=== PATIENT | male | born 1935 | race Caucasian/White ===

== ENCOUNTER 2023-07-15 18:24 | Outpatient (REF) | payer BC, SELFPAY ==
[2023-07-15 18:57] LABS: INR 1.35; Prothrombin Time 14.1 sec (9.0-11.6)
== END 2023-07-15 18:25 | disposition home or self-care (01) ==
LOC: LAB 18:24
PROVIDERS: PCP Family Medicine; Visit Provider Family Medicine
DX: Z79.01 Long term (current) use of anticoagulants (principal)
CPT/HCPCS: 36415; 85610

== ENCOUNTER 2024-08-02 20:20 | Emergency (ER) | payer MEDICARE, BC, SELFPAY ==
[2024-08-02] VITALS (30 sets, daily range): BP systolic 84–154; BP diastolic 47–70; PULSE 64–118; RESP 14; TEMP 37.2; O2SAT 82–98; BMI 23.0
--- NOTE | 2024-08-02 20:30 | ECG_ITS ---
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 Measurements Intervals Lawrence Rate: 74 P: -44231 MN: -99067 QRS: -28 QRSD: 138 T: 130 QT: 424 QTc: 452 Interpretive Statements 84518 Atrial fibrillation with aberrant conduction, or ventricular premature complexes 2330 Nonspecific intraventricular conduction block 7202 Moderate left axis deviation 9150 abnormal ECG No previous ECG available for comparison Electronically Signed On 08-03-2024 6:33:57 EDT by LISSETH OSMAN M.D.
[2024-08-02 20:34] LABS: Glucometer 181 mg/dL (74-106)
--- NOTE | 2024-08-02 20:45 | ED.SOB1 ---
HPI - SOB/Dyspnea General Chief Complaint: Shortness of Breath/Dyspnea Stated Complaint: other Time Seen by Provider: 08/02/24 20:37 Source: patient Mode of arrival: ambulance History of Present Illness HPI Narrative: patient presents from correction with complaint of shortness of breath. Denies any pain. Denies chest or abdominal pain. Denies nausea or vomiting. He feels he may have the flu. feels weak Related Data Home Medications ?Medication ?Instructions ?Recorded ?Confirmed acetaminophen 325 mg capsule 650 mg PO Q6H PRN fever or pain 08/02/24 08/02/24 albuterol sulfate 0.63 mg/3 mL 0.63 mg inhalation Q6H PRN 08/02/24 08/02/24 solution for nebulization shortness of breath or wheezing aripiprazole 2 mg tablet 2 mg PO BID 08/02/24 08/02/24 atorvastatin 20 mg tablet 20 mg PO DAILY 08/02/24 08/02/24 cephalexin 500 mg capsule 500 mg PO TID 08/02/24 08/02/24 dapagliflozin propanediol 10 mg 10 mg PO DAILY 08/02/24 08/02/24 tablet donepezil 5 mg tablet 5 mg PO DAILY 08/02/24 08/02/24 finasteride 5 mg tablet 5 mg PO BEDTIME 08/02/24 08/02/24 insulin aspart U-100 100 unit/mL subcut 08/02/24 (3 mL) subcutaneous pen (Novolog FlexPen U-100 Insulin aspart) insulin glargine 100 unit/mL (3 unit subcut 08/02/24 mL) subcutaneous pen (Lantus Solostar U-100 Insulin) ipratropium 0.5 mg-albuterol 3 mg 3 ml inhalation TID 08/02/24 08/02/24 (2.5 mg base)/3 mL nebulization soln lisinopril 2.5 mg tablet 5 mg PO DAILY 08/02/24 08/02/24 ondansetron 4 mg disintegrating 4 mg PO Q8H 08/02/24 08/02/24 tablet pantoprazole 40 mg tablet,delayed 40 mg PO DAILY 08/02/24 08/02/24 release prednisone 20 mg tablet 60 mg PO DAILY 08/02/24 08/02/24 sertraline 50 mg tablet 50 mg PO Q24H 08/02/24 08/02/24 tamsulosin 0.4 mg capsule 0.4 mg PO Q24H 08/02/24 08/02/24 trazodone 50 mg tablet 50 mg PO DAILY 08/02/24 08/02/24 warfarin 7.5 mg tablet 4 mg PO DAILY 08/02/24 08/02/24 Allergies Allergy/AdvReac Type Severity Reaction Status Date / Time No Known Drug Allergies Allergy Verified 08/02/24 20:25 Review of Systems ROS Status of ROS 10 or more systems reviewed and unremarkable except as noted in history and below Exam Constitutional Vital Signs, click to edit/add: Last Vital Signs Temp 99.0 F 08/02/24 20:22 Pulse 118 H 08/02/24 23:40 Resp 35 H 08/02/24 23:40 BP 154/58 H 08/02/24 23:02 Pulse Ox 95 08/02/24 23:40 O2 Del Method Nasal Cannula 08/02/24 20:57 O2 Flow Rate 2 08/02/24 20:57 FiO2 30 08/02/24 22:41 Common normals: no apparent distress, oriented x3 and alert HENMT Common normals: normocephalic and head/scalp atraumatic Eye Common normals: PERRL and EOMs intact bilaterally Respiratory Common normals: normal respiratory effort, no retractions, no use of accessory muscles and clear to auscultation bilaterally Other: diminished breath sounds Cardio Common normals: regular rate, regular rhythm, S1 normal heart sound and S2 normal heart sound GI Common normals: Normal to inspection, nondistended, normoactive bowel sounds present, soft to palpation and non-tender Extremity Common normals: normal to inspection Other: stasis dermatitis Neuro Common normals: oriented x3, CN's II-XII intact bilaterally and moves all extremities Psych Appearance: grossly normal Course Vital Signs Vital signs: Vital Signs Temperature 99.0 F 08/02/24 20:22 Pulse Rate 76 08/02/24 20:22 Respiratory Rate 22 H 08/02/24 20:22 Blood Pressure 84/55 L 08/02/24 20:22 Pulse Oximetry 87 L 08/02/24 20:22 Oxygen Delivery Method Room Air 08/02/24 20:22 Temperature 99.0 F 08/02/24 20:22 Pulse Rate 118 H 08/02/24 23:40 Respiratory Rate 35 H 08/02/24 23:40 Blood Pressure 154/58 H 08/02/24 23:02 Pulse Oximetry 95 08/02/24 23:40 Oxygen Delivery Method Nasal Cannula 08/02/24 20:57 Oxygen Delivery Flow Rate 2 08/02/24 20:57 Fraction of Inspired Oxygen 30 08/02/24 22:41 MDM - SOB/Dyspnea MDM Narrative Medical decision making narrative: patient presents from correction with shortness of breath. 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 Denies any chest pain. chest xray per radiology with evidence of pulmonary edema. does have cardiomegaly. right pleural effusion . Patient re examined and now does have faint crackles on exam. troponin [place] 148 [place] [address]. pulse ox decreased to 86% on 2L. 02 increased to 6L and he now has pulse ox 95-96. bipap ordered. repeat troponin increase to 229. Patient has history of A. fib. His INR is subtherapeutic at 1.3. Heparin ordered. will plan transfer to facility with cardiology Lab Data Labs: Lab Results 08/02/24 08/02/24 08/02/24 Range/Units 20:33 20:35 21:10 WBC 4.0 (4.0-11.0) 10^3/uL RBC 3.02 L (4.70-6.10) 10^6/uL Hgb 9.3 L (14.0-18.0) g/dL Hct 30.3 L (42.0-54.0) % MCV 100.3 H (80.0-94.0) fL MCH 30.8 (25.9-34.0) pg MCHC 30.7 (29.9-35.2) g/dL RDW 15.6 H (11.0-15.0) % Plt Count 129 L (150-450) 10^3/uL MPV 11.5 (9.5-13.5) fL Neut % (Auto) 78.2 H (43.0-75.0) % Lymph % (Auto) 13.2 L (20.5-60.0) % [place] % (Auto) 7.6 (1.7-12.0) % Eos % (Auto) 0.0 L (0.9-7.0) % Baso % (Auto) 0.5 (0.2-2.0) % Neut # (Auto) 3.1 (1.4-6.5) 10^3/uL Lymph # (Auto) 0.5 L (1.2-3.8) 10^3/uL [place] # (Auto) 0.3 (0.3-0.8) 10^3/uL Eos # (Auto) 0.0 (0.0-0.7) 10^3/uL Baso # (Auto) 0.0 (0.0-0.1) 10^3/uL Abs Immat Gran (auto) 0.02 (0.00-0.03) 10^3/uL Imm/Tot Granulo (auto) 0.5 (0.0-0.5) % PT 13.7 H (9.0-11.6) sec INR 1.33 Sodium 140 (136-145) mmol/L Potassium 4.1 (3.5-5.1) mmol/L Chloride 106 (98-107) mmol/L Carbon Dioxide 22.7 (21.0-32.0) mmol/L Anion Gap 15.4 BUN 19.0 H (7.0-18.0) mg/dL Creatinine 1.64 H (0.70-1.30) mg/dL Est GFR ( Amer) 48 L (>=60 mL/min/1.73m^2) Est GFR (Non-Af Amer) 40 L (>=60 mL/min/1.73m^2) BUN/Creatinine Ratio 11.6 Glucose 179 H (74-106) mg/dL Lactate 2.1 H* (0.4-2.0) mmol/L Calcium 8.8 (8.5-10.1) mg/dL Troponin I High Sens 148.8 H* (4.0-76.1) pg/mL NT-Pro-B Natriuret Pep 62938.0 H* (<=1800.0) pg/mL Influenza Type A Ag Negative Influenza Type B Ag Negative SARS-CoV-2 Ag (CV2AG) Negative (NEGATIVE) POC Glucose 181 H (74-106) mg/dL 08/02/24 08/03/24 Range/Units 23:45 00:05 WBC (4.0-11.0) 10^3/uL RBC (4.70-6.10) 10^6/uL Hgb (14.0-18.0) g/dL Hct (42.0-54.0) % MCV (80.0-94.0) fL MCH (25.9-34.0) pg MCHC (29.9-35.2) g/dL RDW (11.0-15.0) % Plt Count (150-450) 10^3/uL MPV (9.5-13.5) fL Neut % (Auto) (43.0-75.0) % Lymph % (Auto) (20.5-60.0) % [place] % (Auto) (1.7-12.0) % Eos % (Auto) (0.9-7.0) % Baso % (Auto) (0.2-2.0) % Neut # (Auto) (1.4-6.5) 10^3/uL Lymph # (Auto) (1.2-3.8) 10^3/uL [place] # (Auto) (0.3-0.8) 10^3/uL Eos # (Auto) (0.0-0.7) 10^3/uL Baso # (Auto) (0.0-0.1) 10^3/uL Abs Immat Gran (auto) (0.00-0.03) 10^3/uL Imm/Tot Granulo (auto) (0.0-0.5) % PT (9.0-11.6) sec INR Sodium (136-145) mmol/L Potassium (3.5-5.1) mmol/L Chloride (98-107) mmol/L Carbon Dioxide (21.0-32.0) mmol/L Anion Gap BUN (7.0-18.0) mg/dL Creatinine (0.70-1.30) mg/dL Est GFR ( Amer) (>=60 mL/min/1.73m^2) Est GFR (Non-Af Amer) (>=60 mL/min/1.73m^2) BUN/Creatinine Ratio Glucose (74-106) mg/dL Lactate 3.0 H* (0.4-2.0) mmol/L Calcium (8.5-10.1) mg/dL Troponin I High Sens 229.8 H* (4.0-76.1) pg/mL NT-Pro-B Natriuret Pep (<=1800.0) pg/mL Influenza Type A Ag Influenza Type B Ag SARS-CoV-2 Ag (CV2AG) (NEGATIVE) POC Glucose (74-106) mg/dL Critical Care Time Critical Care Time Total Critical Care Time: 45 Discharge Plan Discharge Chief Complaint: Shortness of Breath/Dyspnea Clinical Impression: Non-ST elevation [place] (NSTEMI) Patient Disposition: [facility]
[2024-08-02 21:09] LABS: Basophils Percent Auto 0.5 % (0.2-2.0); Hematocrit 30.3 % (42.0-54.0); Hemoglobin 9.3 g/dL (14.0-18.0); Immature Granulocytes Abs Auto 0.02 10^3/uL (0.00-0.03); Immature Granulocytes Pct Auto 0.5 % (0.0-0.5); Lymphocytes Absolute Auto 0.5 10^3/uL (1.2-3.8); Lymphocytes Percent Auto 13.2 % (20.5-60.0); Mean Corpuscular HGB Conc 30.7 g/dL (29.9-35.2); Mean Corpuscular Hemoglobin 30.8 pg (25.9-34.0); Mean Corpuscular Volume 100.3 fL (80.0-94.0); Mean Platelet Volume 11.5 fL (9.5-13.5); Monocytes Absolute Auto 0.3 10^3/uL (0.3-0.8); Monocytes Percent Auto 7.6 % (1.7-12.0); Neutrophils Absolute Auto 3.1 10^3/uL (1.4-6.5); Neutrophils Percent Auto 78.2 % (43.0-75.0); Platelet Count 129 10^3/uL (150-450); Red Blood Count 3.02 10^6/uL (4.70-6.10); Red Cell Distribution Width 15.6 % (11.0-15.0)
[2024-08-02] MEDS: 0.9 % SODIUM CHLORIDE 1,000 ML 999 ML IV (21:12)
[2024-08-02 21:33] LABS: Anion Gap 15.4; BUN Creatinine Ratio 11.6; Calcium 8.8 mg/dL (8.5-10.1); Carbon Dioxide 22.7 mmol/L (21.0-32.0); Chloride 106 mmol/L (98-107); Estimated GFR (African America 48 (>=60 mL/min/1.73m^2); Estimated GFR (Non-African Ame 40 (>=60 mL/min/1.73m^2); Glucose 179 mg/dL (74-106); Potassium 4.1 mmol/L (3.5-5.1); Sodium 140 mmol/L (136-145)
[2024-08-02 21:35] LABS: Lactate/Lactic Acid 2.1 mmol/L (0.4-2.0); Troponin I High Sensitivity 148.8 pg/mL (4.0-76.1)
[2024-08-02] MEDS: FUROSEMIDE 40 MG/4 ML VIAL IVP (22:01)
[2024-08-02 22:05] LABS: INR 1.33; Prothrombin Time 13.7 sec (9.0-11.6)
[2024-08-02 22:13] LABS: Influenza Virus A Antigen Negative; Influenza Virus B Antigen Negative; Internal Control Within Normal Limits; SARS-CoV-2 Ag NEGATIVE (NEGATIVE)
[2024-08-02 22:14] LABS: Internal Control Within Normal Limits
[2024-08-03] VITALS (26 sets, daily range): BP systolic 100–121; BP diastolic 56–83; PULSE 82–112; RESP 14; TEMP 38.5; O2SAT 92–100
[2024-08-03 00:44] LABS: Troponin I High Sensitivity 229.8 pg/mL (4.0-76.1)
[2024-08-03] MEDS: HEPARIN SODIUM (PORCINE) 5,000 UNIT/ML VIAL 4000 UNIT IV (01:45)
[2024-08-03] MEDS: HEPARIN SODIUM,PORCINE/D5W 25,000 UNIT/500 ML IV.SOLN 18 UNIT IV (02:49)
[2024-08-03] MEDS: CEFTRIAXONE 1,000 MG in 0.9 % SODIUM CHLORIDE 50 ML 100 MG IV (03:13)
[2024-08-03] MEDS: KETOROLAC TROMETHAMINE 30 MG/ML VIAL IVP (03:13)
[2024-08-03 04:25] LABS: Partial Thromboplastin Time 41.5 sec (22.3-36.2)
== END 2024-08-03 03:40 | disposition short-term general hospital (02) ==
PROVIDERS: Emergency Provider Internal Medicine; PCP Family Medicine
DX: I21.4 Non-ST elevation (NSTEMI) myocardial infarction (principal); R06.02 Shortness of breath; Z95.1 Presence of aortocoronary bypass graft; I48.91 Unspecified atrial fibrillation
CPT/HCPCS: 36415; 71045; 80048; 81001; 83605; 83880; 84484; 85025; 85610; 85730; 87804; 87811; 93005; 94660; 96365; 96375; 96376; 99285; J0696; J1644; J1885; J1938

== ENCOUNTER 2024-09-01 12:17 | Emergency (ER) | payer MEDICARE, BC, SELFPAY ==
--- OUTSIDE RECORDS SUMMARY | 2023-03-17 07:00 | XMS_ITS ---
Author Organization [facility] Servic es Address [address] [place] [address] Care Team Providers Care Paymaster Of Purses Name Role Phone ([facility] AMY(ID)), PHYSICIAN NOT IDENTIFIED Primary Care Provider Unavailable Vanessa Durbin [phone] REASON FOR VISIT EST CM 1 SOUTH D/C- PHONE CALL Encounters Encounter Location Date Provider Diagnosis [address] [place] [address] 03/17/2023 Vanessa Durbin Plan Of Treatment No Information Progress Notes * JOHNATHAN BARKER RDOB:[birth year] (89 yo M)Acc No.[id number]:03/17/2023 Behavioral Health Patient: JOHNATHAN TOSCANO Provider: Edilson Nichole :1935 A ge:87 Y S ex:Male Date:03/17/2023 [id number] Pcp:PHYSICIAN NOT IDENTIFIED ([facility] AMY(ID)) Subjective: * Chief Complaints: * 1 . EST CM 1 SOUTH D/C- PHONE CALL. * Medical History: Objective: Therapeutic Interventions: Assessment: Plan: * Images: Care Plan Details* * Electronic signature of Juanita Durbin on 09/01/2024 at 12:27 PM EDT Sign off status: Pending * Provider: Edilson Nichole Date: 1 05/18/2022 Generated for Printi ng/Faxing/eTransmitting on: 0 09/01/2024 12:27 PM EDT
[2024-09-01] VITALS (19 sets, daily range): BP systolic 120–132; BP diastolic 50–62; PULSE 64–78; TEMP 36.5; O2SAT 93–99; BMI 25.1
--- OUTSIDE RECORDS SUMMARY | 2024-09-01 12:27 | XMS_ITS | Encounter Summary ---
Author Organization [facility] Address [address] [place] [address] Care Team Providers Care Mission Analyst Name Role Phone Clive Rodríguez DO Primary Care Provider [phone] Encounter Details Date Type Department Care Team (Late st Contact Info) Description 08/29/2024 Telephone [facility] [address] [facility] [place] [place] [phone] Albertina Altman MA Social History Tobacco Use Types Packs/Day Years Used Date Smoking Tobacco: Never Assessed Sex and Gender Information Value Date Recorded Sex Assigned at Not on file Legal Sex Male 6:46 PM EDT Gender Identity Not on file Sexual Orientation Not on file documented as of this encounter Miscellaneous Notes * Telephone Encounter - FABIAN Mix - 09/01/2024 10:41 AM EDT Quote and copy of deliver receipt emailed as requested * Telephone Encounter - Albertina Altman MA - 08/29/2024 4:53 PM EDT Patient's son in law called stating that patient was hospitalized and his hearing aid was lost by hospital. Patient is attempting to get new hearing aid paid for by hospital. Patient does have l/d available on the aid. Patient is requesting purchase paperwork and a quote for new hearing aid and earmold. Advised patient to allow 24 to 48 hours. Email quote to [email or web address] documented in this encounter Plan of Treatment Not on file documented as of this encounter Visit Diagnoses Not on filedocumented in this encounter Care Teams Mission Analyst Relationship Specialty Start Date End Date Clive Rodríguez DO PCP - General 11/09/23 documented as of this encounter
--- OUTSIDE RECORDS SUMMARY | 2024-09-01 12:27 | XMS_ITS | Clinical Summary ---
Author Organization [facility] Address [address] [place] [address] Care Team Providers Care Molded Goods Controls Operator Name Role Phone Clive Rodríguez DO Primary Care Provider [phone] Encounters Date Type Department Care Team Description 08/29/2024 Telephone [facility] [address] [place] [address] Albertina Altman MA 08/16/2024 Telephone [facility] [address] [place] [address] Albertina Altman MA from Last 3 Months Social History Tobacco Use Types Packs/Day Years Used Date Smoking Tobacco: Never Assessed Sex and Gender Information Value Date Recorded Sex Assigned at Not on file Legal Sex Male 6:46 PM EDT Gender Identity Not on file Sexual Orientation Not on file Plan of Treatment Not on file Insurance [facility] MEDICARE Care Teams Molded Goods Controls Operator Relationship Specialty Start Date End Date Clive Rodríguez DO PCP - General 11/09/23
--- OUTSIDE RECORDS SUMMARY | 2024-09-01 12:27 | XMS_ITS ---
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 Past Treatment and Therapy Plans No past plan information found. Treatment Summaries Prostate cancer (HCC)* Treatment Summary and Survivorship Care Plan for Prostate Cancer Provided by: Arlin Hodge APRN.LITIGATION DOCKET MANAGER General Information Patient Name: Vincent Greer Patient : 1935 Patient phone: Health Care Providers Primary Care Provider: Dr. Clive Rodríguez Urologic Surgeon: Dr. Parker Everett Radiation Oncologist: Dr. Shae Vazquez Other Providers: Arlin Hodge APRN.LITIGATION DOCKET MANAGER Treatment Summary Diagnosis Cancer Type: Adenocarcinoma of the Prostate Location: Left lateral base; Left lateral mid; Left lateral apex; Left base; Left mid; Left apex; Right apex; Right lateral apex; Right lateral mid (High- grade prostatic intraepithelial neoplasia (HGPIN)) Diagnosis Date (year): April 27, 2019 Histology Subtype: Prostate Cancer Stage: IIC; Clinical stage T2c, N0, M0 Morovis Score: 4+3 = 7 PSA at Diagnosis: 17.9 Clinical Trial: No Treatment Completed Surgery: Yes Surgery Date(s) (year): April 27, 2020 Surgical procedure/location/findings: Transrectal biopsy of prostate using ultrasound guidance; Left lateral base; Left lateral mid; Left lateral apex; Left base; Left mid; Left apex; Right apex; Right lateral apex; Right lateral mid (High-grade prostatic intraepithelial neoplasia (HGPIN)); Adenocarcinoma of the prostate External beam radiation: Yes Pelvis and Prostate: Yes: End Date (year): December 16, 2019 (October 24, 2019 through November) RADIATION SUMMARY: DATES OF TREATMENT: 10/24/2019 to 12/16/2019 AREA TREATED: Pelvis and Prostate DELIVERED DOSE: Area: Prostate 4,600 cGy in 23 fractions, 3 Arcs, IMRT, 10MV with daily CBCT Area: Prostate Boost 3,200 cGy in 16 fractions, 2 Arcs, IMRT, 10MV with daily CBCT TOTAL: 7,800 cGy in 39 Fractions Systemic Therapy (chemotherapy, hormonal therapy, other): Yes Name of Agents Used: Lupron (or similar LHRH agonist) Presistent symptoms or side effects at completion of treatment: No Follow-up Care Plan Schedule of clinical visits Coordinating Provider When/How often Dr. Shae Vazquez Every 6 months x2 years, then once yearly. Dr. Parker Everett Per Dr. Everett Cancer surveillance or other recommended related tests Coordinating Provider Test How Often Dr. Shae Vazquez PSA (Prostate Specific Antigen) Every 6 months x2 years, then once yearly. Dr. Parker Everett PSA (Prostate Specific Antigen) Per Dr. Everett Please continue to see your primary care provider for all general health care recommended for a (man) (women) your age, including cancer screening tests. Any symptoms should be brought to the attention of your provider: 1. Anything that represents a brand new symptom; 2. Anything that represents a persistent symptom; 3. Anything you are worried about that might be related to the cancer coming back. Possible late- and long-term effects that someone with this type of cancer and treatment may experience: Decreased sex drive, Enlarging breast tissue, Erectile dysfunction, Fatigue, Hair Loss, Hot flashes, Incontinence, Increased body fat, Loss of muscle mass, Metabolic syndrome (increased blood pressure, blood sugar, cholesterol), Mood swings, Osteoporosis, Painful urination, Rectal pain, Shorten ing of the penis, Skin irritation or darkening, Sterility, Tirdness, Trouble voiding or passing uring (urinary retention), and Urinary frequency Cancer survivors may experience issues with the areas listed below. If you have any concerns in these or other areas, please speak with your doctors or nurses to find out how you can get help with them: anxiety or depression , emotional or mental health, fatigue, fertility, financial advice or assistance, insurance, memory or concentration loss, parenting, physicial functioning, school/work, and sexual functioning A number of lifestyle/behaviors can affect your ongoing health, including the risk for the cancer coming back or developing another cancer. Discuss these recommendations with your doctor or nurse: alcohol use, diet, management of medications, management of other illnesses, physical activity, sun screen use, tobacco use/cessation, and weight management (loss/gain) Resources you may be interested in: www.cancer.net Nautical Instrument Mechanic Global Supply Chain Director Art Therapy PSA (Prostate Cancer Support Group) - Contact Nautical Instrument Mechanic for dates and times. Living with Cancer Support Group - Contact Nautical Instrument Mechanic for dates and times. Prepared by: Arlin Hodge APRN.LITIGATION DOCKET MANAGER Delivered on: July 11, 2020 - This Survivorship Care Plan is a cancer treatment summary and follow-up plan is provided to you to keep with your health care records and to share with your primary care provider. - This summary is a brief record of major aspects of your cancer treatment. You can share your copywith any of your doctors or nurses. However, this is not a detailed or comprehensive record of yourcare.
--- OUTSIDE RECORDS SUMMARY | 2024-09-01 12:27 | XMS_ITS | Encounter Summary ---
Author Organization [facility] Address [address] [place] [address] Phone Care Team Providers Care Yard Rigger Name Role Phone Clive Rodríguez DO Primary Care Provider [phone] Clive Rodríguez DO Primary Care Provider [phone] Encounter Details Date Type Department Care Team (Late st Contact Info) Description 10/01/2020 Orders Only [facility] [address] [place] [address] Conversion, Onbase Social History Tobacco Use Types Packs/Day Years Used Date Smoking Tobacco: Never Assessed Sex and Gender Information Value Date Recorded Sex Assigned at Not on file Legal Sex Male 4:08 PM EST Gender Identity Not on file Sexual Orientation Not on file documented as of this encounter Plan of Treatment Upcoming Encounters Date Type Department Care Team (Late st Contact Info) Description 09/02/2024 8:30 AM EDT Office Visit [facility] [address] [address] Epifanio Talbot MD [address] [facility] [address] [place] [address] Scheduled Orders Name Type Priority Associated Diagnoses Orde r Schedule OUTSIDE LAB SCAN Lab Ordered: 10/01/2020 documented as of this encounter Visit Diagnoses Not on filedocumented in this encounter Care Teams Yard Rigger Relationship Specialty Start Date End Date Clive Rodríguez DO PCP - General 06/29/18 02/16/24 Clive Rodríguez DO [address] [place] [address] PCP - General Family Medicine 02/17/24 documented as of this encounter
--- OUTSIDE RECORDS SUMMARY | 2024-09-01 12:27 | XMS_ITS | Encounter Summary ---
Author Organization [facility] Address [address] [place] [address] Phone Care Team Providers Care Printing Assistant Name Role Phone Clive Rodríguez DO Primary Care Provider [phone] Clive Rodríguez DO Primary Care Provider [phone] Encounter Details Date Type Department Care Team (Late st Contact Info) Description 01/18/2024 Scanned Document [facility] [address] [place] [phone] Scanning, Generic Provider Social History Tobacco Use Types Packs/Day Years Used Date Smoking Tobacco: Never Smokeless Tobacco: Never Alcohol Use Standard Drinks/Week Comments Never 0 (1 standard drink = 0.6 oz pur e alcohol) Sex and Gender Information Value Date Recorded Sex Assigned at Not on file Legal Sex Male 4:08 PM EST Gender Identity Not on file Sexual Orientation Not on file documented as of this encounter Plan of Treatment Upcoming Encounters Date Type Department Care Team (Late st Contact Info) Description 09/02/2024 8:30 AM EDT Office Visit [facility] [address] [address] Epifanio Talbot MD [address] [facility] [address] [place] [address] documented as of this encounter Procedures Procedure Name Priority Date/Time Associated Diagnosis Comments OUTSIDE LAB SCAN 01/18/2024 documented in this encounter Results * OUTSIDE LAB SCAN (01/18/2024) Narrative 01/18/2024 Ordered by an unspecified provider. us Generic Provider Scanning OUTSIDE SCAN Final Result documented in this encounter Visit Diagnoses Not on filedocumented in this encounter Additional Health Concerns Assessment Noted Time A fall risk assessment has been complete d for the patient 08/31/2023 8:31 AM EDT documented as of this encounter Care Teams Printing Assistant Relationship Specialty Start Date End Date Clive Rodríguez DO PCP - General 06/29/18 02/16/24 Clive Rodríguez DO [address] [place] [id number] PCP - General Family Medicine 02/17/24 documented as of this encounter
--- OUTSIDE RECORDS SUMMARY | 2024-09-01 12:27 | XMS_ITS | Encounter Summary ---
Author Organization [facility] Address [address] [place] [address] Phone Care Team Providers Care Property Management Specialist Name Role Phone Clive Rodríguez DO Primary Care Provider Clive Rodríguez DO Primary Care Provider [phone] Encounter Details Date Type Department Care Team (Late st Contact Info) Description 12/10/2020 Orders Only [facility] [address] [place] [address] Conversion, Onbase Social History Tobacco Use Types [...] Description 09/02/2024 8:30 AM EDT Office Visit [facility] [address] [address] Epifanio Talbot MD [address]03 [facility] [address] [place] [address] Scheduled Orders Name Type Priority Associated Diagnoses Orde r Schedule OUTSIDE LAB SCAN Lab Ordered: 12/10/2020 documented as of this encounter Visit Diagnoses Not on filedocumented in this encounter Care Teams Property Management Specialist Relationship Specialty Start Date End Date Clive Rodríguez DO PCP - General 06/29/18 02/16/24 Clive Rodríguez DO [address] [place] [address] PCP - General Family Medicine 02/17/24 documented as of this encounter
--- OUTSIDE RECORDS SUMMARY | 2024-09-01 12:27 | XMS_ITS | Encounter Summary ---
Author Organization [facility] Address [address] [place] [address] Phone Care Team Providers Care Mds Rn Name Role Phone Clive Rodríguez DO Primary Care Provider [phone] Clive Rodríguez DO Primary Care Provider [phone] Encounter Details Date Type Department Care Team (Late st Contact Info) Description 12/16/2023 Scanned Document [facility] [address] [place] [id number] Scanning, Generic Provider Social History Tobacco Use [...] Description 09/02/2024 8:30 AM EDT Office Visit [facility] [address] [address] Epifanio Talbot MD [address] [facility] [address], [address] [place] [address] documented as of this encounter Procedures Procedure Name Priority Date/Time Associated Diagnosis Comments OUTSIDE LAB SCAN 12/16/2023 documented in this encounter Results * OUTSIDE LAB SCAN (12/16/2023) Narrative 12/16/2023 Ordered by an unspecified provider. us Generic Provider Scanning OUTSIDE SCAN Final Result documented in this encounter Visit Diagnoses Not on filedocumented in this encounter Additional Health Concerns Assessment Noted Time A fall risk assessment has been complete d for the patient 08/31/2023 8:31 AM EDT documented as of this encounter Care Teams Mds Rn Relationship Specialty Start Date End Date Clive Rodríguez DO PCP - General 06/29/18 02/16/24 Clive Rodríguez DO [address] [place] [address] PCP - General Family Medicine 02/17/24 documented as of this encounter
--- OUTSIDE RECORDS SUMMARY | 2024-09-01 12:27 | XMS_ITS | Encounter Summary ---
Author Organization [facility] Address [address] [place] [address] Phone Care Team Providers Care Chief Recordist Name Role Phone Clive Rodríguez DO Primary Care Provider [phone] Clive Rodríguez DO Primary Care Provider [phone] Encounter Details Date Type Department Care Team (Late st Contact Info) Description 11/19/2023 Scanned Document [facility] [address] [place] [phone] Scanning, Generic Provider Social History Tobacco Use [...] Description 09/02/2024 8:30 AM EDT Office Visit [facility] [address] [address] Epifanio Talbot MD 703 [facility] [address], [address] [place] [address] documented as of this encounter Procedures Procedure Name Priority Date/Time Associated Diagnosis Comments OUTSIDE LAB SCAN 11/19/2023 documented in this encounter Results * OUTSIDE LAB SCAN (11/19/2023) Narrative 11/19/2023 Ordered by an unspecified provider. us Generic Provider Scanning OUTSIDE SCAN Final Result documented in this encounter Visit Diagnoses Not on filedocumented in this encounter Additional Health Concerns Assessment Noted Time A fall risk assessment has been complete d for the patient 08/31/2023 8:31 AM EDT documented as of this encounter Care Teams Chief Recordist Relationship Specialty Start Date End Date Clive Rodríguez DO PCP - General 06/29/18 02/16/24 Clive Rodríguez DO [address] [place] [address] PCP - General Family Medicine 02/17/24 documented as of this encounter
--- OUTSIDE RECORDS SUMMARY | 2024-09-01 12:27 | XMS_ITS | Encounter Summary ---
Author Organization [facility] Address [address] [place] [address] Phone Care Team Providers Care Tow Car Driver Name Role Phone Clive Rodríguez DO Primary Care Provider [phone] Clive Rodríguez DO Primary Care Provider [phone] Encounter Details Date Type Department Care Team (Late st Contact Info) Description 10/30/2020 Orders Only [facility] [address] [place] [address] Conversion, Onbase Social History Tobacco Use Types [...] Description 09/02/2024 8:30 AM EDT Office Visit [facility] [address] [address] Epifanio Talbot MD 703 [facility] 2, [address] [place] [address] Scheduled Orders Name Type Priority Associated Diagnoses Orde r Schedule OUTSIDE LAB SCAN Lab Ordered: 10/30/2020 documented as of this encounter Visit Diagnoses Not on filedocumented in this encounter Care Teams Tow Car Driver Relationship Specialty Start Date End Date Clive Rodríguez DO PCP - General 06/29/18 02/16/24 Clive Rodríguez DO [address] [place] [address] PCP - General Family Medicine 02/17/24 documented as of this encounter
--- OUTSIDE RECORDS SUMMARY | 2024-09-01 12:27 | XMS_ITS | Encounter Summary ---
Author Organization [facility] Address [address] [place] [address] Phone Care Team Providers Care Welder Tech Name Role Phone Clive Rodríguez DO Primary Care Provider [phone] Clive Rodríguez DO Primary Care Provider [phone] Encounter Details Date Type Department Care Team (Late st Contact Info) Description 01/06/2024 Scanned Document [facility] [address] [place] [phone] Scanning, Generic Provider Social History Tobacco Use [...] Description 09/02/2024 8:30 AM EDT Office Visit [facility] [address] [address] Epifanio Talbot MD 703 [facility] [address], [address] [place] [address] documented as of this encounter Procedures Procedure Name Priority Date/Time Associated Diagnosis Comments OUTSIDE LAB SCAN 01/06/2024 documented in this encounter Results * OUTSIDE LAB SCAN (01/06/2024) Narrative 01/06/2024 Ordered by an unspecified provider. us Generic Provider Scanning OUTSIDE SCAN Final Result documented in this encounter Visit Diagnoses Not on filedocumented in this encounter Additional Health Concerns Assessment Noted Time A fall risk assessment has been complete d for the patient 08/31/2023 8:31 AM EDT documented as of this encounter Care Teams Welder Tech Relationship Specialty Start Date End Date Clive Rodríguez DO PCP - General 06/29/18 02/16/24 Clive Rodríguez DO [address] [place] [address] PCP - General Family Medicine 02/17/24 documented as of this encounter
--- OUTSIDE RECORDS SUMMARY | 2024-09-01 12:27 | XMS_ITS | Encounter Summary ---
Author Organization [facility] Address [address] [place] [address] Phone Care Team Providers Care Outbound Telemarketing Representative Name Role Phone Clive Rodríguez DO Primary Care Provider [phone] Clive Rodríguez DO Primary Care Provider [phone] Encounter Details Date Type Department Care Team (Late st Contact Info) Description 08/23/2020 Orders Only [facility] [address] [place] [address] Conversion, Onbase Social History Tobacco Use Types [...] Description 09/02/2024 8:30 AM EDT Office Visit [facility] [address] [address] Epifanio Talbot MD 703 [facility] 2, [address] [place] [address] Scheduled Orders Name Type Priority Associated Diagnoses Orde r Schedule OUTSIDE LAB SCAN Lab Ordered: 08/23/2020 documented as of this encounter Visit Diagnoses Not on filedocumented in this encounter Care Teams Outbound Telemarketing Representative Relationship Specialty Start Date End Date Clive Rodríguez DO PCP - General 06/29/18 02/16/24 Clive Rodríguez DO [address] [place] [address] PCP - General Family Medicine 02/17/24 documented as of this encounter
--- OUTSIDE RECORDS SUMMARY | 2024-09-01 12:27 | XMS_ITS | Clinical Summary ---
Author Organization [facility] Address [address] [place] [address] Care Team Providers Care Vaccine Customer Representative Name Role Phone Clive Rodríguez DO Primary Care Provider [phone] Allergies No known active allergies Medications glimepiride (AMARYL ORAL) Take by mouth. Active aspirin, enteric coated (ASPIRIN, ENTERIC COATED) 81 mg EC tablet Take 81 mg by mouth once daily. Active warfarin sodium (COUMADIN ORAL) Take by mouth. Active ferrous sulfate 325 mg (65 mg iron) tablet Take 325 mg by mouth daily with breakfast. Active sitagliptin phosphate (JANUVIA ORAL) Take by mouth. Active insulin glargine,hum.rec .anlog (LANTUS SUBCUTANEOUS) Inject subcutaneou sly. Active atorvastatin calcium (LIPITOR ORAL) Take by mouth. Active LISINOPRIL ORAL Take by mouth. Active omeprazole (PRILOSEC) 20 mg capsule Take 20 mg by mouth once daily. Active tamsulosin (FLOMAX) 0.4 mg Take 0.4 mg by mouth daily at bedtime. Active Vitamin E, dl, acetate, (VITAMIN E) 200 unit Capsule Take by mouth once daily. 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 Never 10/04/2019 Average Number of Drinks Not on file 020 Frequency of Binge Drinking Not on file 09/20 PHQ-2 Answer Date Recorded PHQ-2 score 0 01/05/2024 Area Deprivation Index Answer Date Pato rded National Score (1-100), lower number is lower ri sk 78 01/05/2024 State Score (1-10), lower number is lower risk 6 01/05/2024 Data from: https://www.neighborhoodatlas.medicine.[facility]/. Last address used for calculation [address] 01/05/2024 Sex and Gender Information Value Date Recorded Sex Assigned at Not on file Legal Sex Male 10:06 AM EST Gender Identity Not on file Sexual Orientation Not on file Last Filed Vital Signs Vital Sign Reading Time Taken Comments Blood Pressure 175/84 01/05/2024 1:10 PM EDT Pulse 67 01/05/2024 1:10 PM EDT Temperature 36.2 C (97.2 F) 01/05/2024 1:10 PM EDT Respiratory Rate 18 01/05/2024 1:10 PM EDT Oxygen Saturation 97% 01/05/2024 1:10 PM EDT Inhaled Oxygen Concentration - - Weight 81.2 kg (179 lb 0.2 oz) 01/05/2024 1:10 P M EDT Height 179.1 cm (5' 10.5 ) 10/04/2019 7:52 AM ED T Body Mass Index 25.32 10/04/2019 7:52 AM EDT Plan of Treatment Health Maintenance Due Date Last Done Comments Anxiety Screening 1953 Depression Screening 1953 Medicare Annual Wellness Visit 05/21/2001 RSV Vaccine (1 - 1-dose 75+ series) 06/15/2011 Shingrix Vaccine (2 of 3) 12/16/2012 10/21/2012 Pneumococcal Vaccine: 50+ (2 of 2 - PPSV23) 01/08/2019 01/08/2018 Covid-19 Vaccine (1 - 2023-2 5 season) 2023 Advance Directive Discussion 03/23/2024 Influenza Vaccine (Season Ended) 2024 12/21/2020, 01/11/2020, 01/03/2019, Additional history exists Diabetes Screening 07/06/2026 07/07/2023, 0 07/07/2023, 07/03/2023, Additional history exists DTaP,Tdap,Td Vaccine (2 - Td or Tdap) 01/02/2029 01/02/2019, 01/02/2019 Procedures Procedure Name Priority Date/Time Associated Diagnosis Comments COMPREHENSIVE METABOLIC PANEL Routine 07/04/2020 8:55 AM EDT from Last 3 Months or Most Recently Relevant to Health Maintenance Results * (ABNORMAL) COMP METABOLIC PANEL (07/04/2020 8:55 AM EDT) Pathologist [facility] Protein, Total 6.6 6.3 - 8.0 g/dL 07/05/2020 11:28 AM EDT [facility] Albumin 3.9 3.9 - 4.9 g/dL 07/05/2020 11:28 AM EDT [facility] Calcium 9.2 8.5 - 10.2 mg/dL 07/05/2020 11:28 AM EDT [facility] Bilirubin, Total 0.3 0.2 - 1.3 mg/dL 07/05/2020 11:28 AM T [facility] Alkaline Phosphatase 121(H) 38 - 113 U/L 07/05/2020 11:28 AM EDT [facility] AST 37 14 - 40 U/L 07/05/2020 11:28 AM EDT [facility] Glucose 172(H) 74 - 99 mg/dL 07/05/2020 11:28 AM [facility] Comment: The [place] [employer] (ADA) provides guidance for cutoff values for fasting glucose and random glucose. The ADA defines fasting as no caloric intake for at least 8 hours. Fasting plasma glucose results between 100 to 125 mg/dL indicate increased risk for diabetes (prediabetes). Fasting plasma glucose results greater than or equal to 126 mg/dL meet the criteria for diagnosis of diabetes. In the absence of unequivocal hyperglycemia, results should be confirmed by repeat testing. In a patient with classic symptoms of hyperglycemia or hyperglycemic crisis, random plasma glucose results greater than or equal to 200 mg/dL meet the criteria for diagnosis of diabetes. Reference: Standards of Medical Care in Diabetes 2016, [place] [employer]. Diabetes Care. 2016.39(Suppl 1). BUN 14 9 - 24 mg/dL 07/05/2020 11:28 AM EDT [facility] Creatinine 1.12 0.73 - 1.22 mg/dL 07/05/2020 11:28 AM EDT [facility] Sodium 141 136 - 144 mmol/L 07/05/2020 11:28 AM EDT [facility] Potassium 4.4 3.7 - 5.1 mmol/L 07/05/2020 11:28 AM EDT [facility] Chloride 107(H) 97 - 105 mmol/L 07/05/2020 11:28 AM EDT [facility] CO2 26 22 - 30 mmol/L 07/05/2020 11:28 AM EDT [facility] Anion Gap 8(L) 9 - 18 mmol/L 07/05/2020 11:28 AM T [facility] ALT 31 10 - 54 U/L 07/05/2020 11:28 AM [facility] eGFR- >60 07/05/2020 11:28 AM T [facility] eGFR-All Other Races >60 . 07/05/2020 11:28 AM T [facility] Comment: eGFR (Estimated GFR) Units of measure: mL/min/1.73 meters squared eGFR is derived from the reexpressed MDRD Study equation using the following parameters: serum creatinine, age, gender and race. The creatinine assay has been calibrated to be traceable to IDMS. An eGFR <60 mL/min/1.73m2 for >3 months is consistent with chronic kidney disease. Refer to KDOQI guidelines for clinical interpretation. In patients with unstable renal function, e.g. those with acute kidney injury, the eGFR may not accurately reflect actual GFR. 07/04/2020 8:55 AM EDT 07/04/2020 8:06 PM EDT us Clive Rodríguez DO LABORATORY Final Result [facility] [address] [place] [address] [facility] [address] [place] [address] from Last 3 Months or Most Recently Relevant to Health Maintenance Insurance MEDICARE BLUE CARD PPO OOS Care Teams Vaccine Customer Representative Relationship Specialty Start Date End Date Clive Rodríguez DO [address] [place] [address] PCP - General Family Medicine 10/04/19
--- OUTSIDE RECORDS SUMMARY | 2024-09-01 12:27 | XMS_ITS | Encounter Summary ---
Author Organization [facility] Address [address] [place] [address] Phone Care Team Providers Care Grinding Room Inspector Name Role Phone Clive Rodríguez DO Primary Care Provider [phone] Clive Rodríguez DO Primary Care Provider [phone] Encounter Details Date Type Department Care Team (Late st Contact Info) Description 08/21/2022 Orders Only [facility] [address] [place] [address] Conversion, Onbase Social History Tobacco Use Types [...] Description 09/02/2024 8:30 AM EDT Office Visit [facility] [address] [address] Epifanio Talbot MD 703 [facility] 2, [address] [place] [address] Scheduled Orders Name Type Priority Associated Diagnoses Orde r Schedule OUTSIDE LAB SCAN Lab Ordered: 08/21/2022 OUTSIDE LAB SCAN Lab Ordered: 08/21/2022 documented as of this encounter Visit Diagnoses Not on filedocumented in this encounter Care Teams Grinding Room Inspector Relationship Specialty Start Date End Date Clive Rodríguez DO PCP - General 06/29/18 02/16/24 Clive Rodríguez DO [facility] [place] [address] PCP - General Family Medicine 02/17/24 documented as of this encounter
--- OUTSIDE RECORDS SUMMARY | 2024-09-01 12:27 | XMS_ITS | Encounter Summary ---
Author Organization [facility] Address [address] [place] [address] Phone Care Team Providers Care Route Salesman And Driver Name Role Phone Clive Rodríguez Miguel BROOKS Primary Care Provider [phone] Encounter Details Date Type Department Care Team (Late st Contact Info) Description 03/29/2024 Scanned Document [facility] [address] [place] [phone] Scanning, Generic Provider Social History Tobacco Use [...] Description 09/02/2024 8:30 AM EDT Office Visit [facility] [address] [address] Epifanio Talbot MD 703 [facility] 2, [address] [place] [address] documented as of this encounter Procedures Procedure Name Priority Date/Time Associated Diagnosis Comments OUTSIDE LAB SCAN 03/29/2024 documented in this encounter Results * OUTSIDE LAB SCAN (03/29/2024) Narrative 03/29/2024 Ordered by an unspecified provider. us Generic Provider Scanning OUTSIDE SCAN Final Result documented in this encounter Visit Diagnoses Not on filedocumented in this encounter Additional Health Concerns Assessment Noted Time A fall risk assessment has been complete d for the patient 08/31/2023 8:31 AM EDT documented as of this encounter Care Teams Route Salesman And Driver Relationship Specialty Start Date End Date Clive Rodríguez DO [address] [place] [address] PCP - General Family Medicine 02/17/24 documented as of this encounter
--- OUTSIDE RECORDS SUMMARY | 2024-09-01 12:27 | XMS_ITS | Encounter Summary ---
Author Organization [facility] Address [address] [place] [address] Phone Care Team Providers Care Dry Wall Applicator Name Role Phone Clive Rodríguez Miguel BROOKS Primary Care Provider [phone] Encounter Details Date Type Department Care Team (Late st Contact Info) Description 04/05/2024 Scanned Document [facility] [address] [place] [phone] Scanning, Generic Provider Social History Tobacco Use [...] Description 09/02/2024 8:30 AM EDT Office Visit [facility] [address] [address] Epifanio Talbot MD 703 [facility] 2, [address] [place] [address] documented as of this encounter Procedures Procedure Name Priority Date/Time Associated Diagnosis Comments OUTSIDE LAB SCAN 04/05/2024 documented in this encounter Results * OUTSIDE LAB SCAN (04/05/2024) Narrative 04/05/2024 Ordered by an unspecified provider. us Generic Provider Scanning OUTSIDE SCAN Final Result documented in this encounter Visit Diagnoses Not on filedocumented in this encounter Additional Health Concerns Assessment Noted Time A fall risk assessment has been complete d for the patient 08/31/2023 8:31 AM EDT documented as of this encounter Care Teams Dry Wall Applicator Relationship Specialty Start Date End Date Clive Rodríguez DO [address] [place] [address] PCP - General Family Medicine 02/17/24 documented as of this encounter
--- OUTSIDE RECORDS SUMMARY | 2024-09-01 12:27 | XMS_ITS | Encounter Summary ---
Author Organization [facility] Address [address] [place] [address] Phone Care Team Providers Care Lead Relay Tester Name Role Phone Clive Rodríguez DO Primary Care Provider [phone] Clive Rodríguez DO Primary Care Provider [phone] Encounter Details Date Type Department Care Team (Late st Contact Info) Description 08/09/2020 Orders Only [facility] [address] [place] [address] Conversion, Onbase Social History Tobacco Use Types [...] Description 09/02/2024 8:30 AM EDT Office Visit [facility] [address] [address] Epifanio Talbot MD 703 [facility] 2, [address] [place] [address] Scheduled Orders Name Type Priority Associated Diagnoses Orde r Schedule OUTSIDE LAB SCAN Lab Ordered: 08/09/2020 documented as of this encounter Visit Diagnoses Not on filedocumented in this encounter Care Teams Lead Relay Tester Relationship Specialty Start Date End Date Clive Rodríguez DO PCP - General 06/29/18 02/16/24 Clive Rodríguez DO [address] [place] [address] PCP - General Family Medicine 02/17/24 documented as of this encounter
--- OUTSIDE RECORDS SUMMARY | 2024-09-01 12:27 | XMS_ITS | Encounter Summary ---
Author Organization [facility] Address [address] [place] [address] Phone Care Team Providers Care Coarse Wire Drawer Name Role Phone Clvie Rodríguez Miguel BROOKS Primary Care Provider [phone] Encounter Details Date Type Department Care Team (Late st Contact Info) Description 04/26/2024 Scanned Document [facility] [address] [place] [phone] Scanning, Generic Provider Social History Tobacco Use [...] Description 09/02/2024 8:30 AM EDT Office Visit [facility] [address] [address] Epifanio Talbot MD 703 [facility] 2, [address] [place] [address] documented as of this encounter Procedures Procedure Name Priority Date/Time Associated Diagnosis Comments OUTSIDE LAB SCAN 04/26/2024 documented in this encounter Results * OUTSIDE LAB SCAN (04/26/2024) Narrative 04/26/2024 Ordered by an unspecified provider. us Generic Provider Scanning OUTSIDE SCAN Final Result documented in this encounter Visit Diagnoses Not on filedocumented in this encounter Additional Health Concerns Assessment Noted Time A fall risk assessment has been complete d for the patient 08/31/2023 8:31 AM EDT documented as of this encounter Care Teams Coarse Wire Drawer Relationship Specialty Start Date End Date Clive Rodríguez DO [address] [place] [address] PCP - General Family Medicine 02/17/24 documented as of this encounter
--- OUTSIDE RECORDS SUMMARY | 2024-09-01 12:27 | XMS_ITS | Encounter Summary ---
Author Organization [facility] Address [address] [place] [address] Phone Care Team Providers Care Manager Distribution Center Name Role Phone Clive Rodríguez DO Primary Care Provider [phone] Clive Rodríguez DO Primary Care Provider [phone] Encounter Details Date Type Department Care Team (Late st Contact Info) Description 08/11/2023 Scanned Document [facility] [address] [place] [phone] Scanning, Generic Provider Social History Tobacco Use Types Packs/Day Years Used Date Smoking Tobacco: Never Alcohol Use Standard Drinks/Week Comments [...] 09/02/2024 8:30 AM EDT Office Visit [facility] 703 [facility] [address] [place] [address] Epifanio Talbot MD 703 [facility] 2, [address] [place] [address] documented as of this encounter Visit Diagnoses Not on filedocumented in this encounter Care Teams Manager Distribution Center Relationship Specialty Start Date End Date Clive Rodríguez DO PCP - General 06/29/18 02/16/24 Clive Rodríguez DO [address] [place] [address] PCP - General Family Medicine 02/17/24 documented as of this encounter
--- OUTSIDE RECORDS SUMMARY | 2024-09-01 12:27 | XMS_ITS | Encounter Summary ---
Author Organization [facility] Address [address] [place] [address] Phone Care Team Providers Care Shirt Folding Machine Operator Name Role Phone Clive Rodríguez Miguel BROOKS Primary Care Provider [phone] Encounter Details Date Type Department Care Team (Late st Contact Info) Description 06/08/2024 Scanned Document [facility] [address] [place] [phone] Scanning, Generic Provider Social History Tobacco Use [...] Description 09/02/2024 8:30 AM EDT Office Visit [facility] [address] [address] Epifanio Talbot MD 703 [facility] 2, [address] [place] [address] documented as of this encounter Procedures Procedure Name Priority Date/Time Associated Diagnosis Comments OUTSIDE LAB SCAN 06/08/2024 documented in this encounter Results * OUTSIDE LAB SCAN (06/08/2024) Narrative 06/08/2024 Ordered by an unspecified provider. us Generic Provider Scanning OUTSIDE SCAN Final Result documented in this encounter Visit Diagnoses Not on filedocumented in this encounter Additional Health Concerns Assessment Noted Time A fall risk assessment has been complete d for the patient 08/31/2023 8:31 AM EDT documented as of this encounter Care Teams Shirt Folding Machine Operator Relationship Specialty Start Date End Date Clive Rodríguez DO [address] [place] [address] PCP - General Family Medicine 02/17/24 documented as of this encounter
--- OUTSIDE RECORDS SUMMARY | 2024-09-01 12:27 | XMS_ITS | Patient Health Record ---
Author Organization [facility] Address [address] [place] [address] Care Team Providers Care Concrete Mixing Truck Driver Name Role Phone ([facility] REYES(ID)), PHYSICIAN NOT IDENTIFIED Primary Care Provider Unavailable Vanessa Durbin Unavailable [phone] Reason For Referral No Information Plan Of Treatment No Information Insurance Providers Payer Name Payer Address Payer Phone Subscriber Number Group Number Insured Name Patient Relationship to Insured Coverage Start Date Coverage End Date MEDICARE CGS [address] [place] [phone] [id number] JOHNATHAN BARKER Self - patient is the insured 3 ANTHEM Secondary [address] [place] [address] [phone] [id number] JOHNATHAN BARKER Self - patient is the insured 3
--- OUTSIDE RECORDS SUMMARY | 2024-09-01 12:27 | XMS_ITS | Encounter Summary ---
Author Organization [facility] Address [address] [place] [address] Phone Care Team Providers Care Automotive Sales Professional Name Role Phone Clive Rodríguez Miguel BROOKS Primary Care Provider [phone] Encounter Details Date Type Department Care Team (Late st Contact Info) Description 06/16/2024 Scanned Document [facility] [address] [place] [phone] Scanning, Generic Provider Social History Tobacco Use [...] EDT Office Visit [facility] [address] [address] Epifanio Talbot MD 703 [facility] 2, [address] [place] [address] documented as of this encounter Procedures Procedure Name Priority Date/Time Associated Diagnosis Comments OUTSIDE LAB SCAN 06/16/2024 documented in this encounter Results * OUTSIDE LAB SCAN (06/16/2024) Narrative 06/16/2024 Ordered by an unspecified provider. us Generic Provider Scanning OUTSIDE SCAN Final Result documented in this encounter Visit Diagnoses Not on filedocumented in this encounter Additional Health Concerns Assessment Noted Time A fall risk assessment has been complete d for the patient 08/31/2023 8:31 AM EDT documented as of this encounter Care Teams Automotive Sales Professional Relationship Specialty Start Date End Date Clive Rodríguez DO [address] [place] [address] PCP - General Family Medicine 02/17/24 documented as of this encounter
--- OUTSIDE RECORDS SUMMARY | 2024-09-01 12:27 | XMS_ITS | Encounter Summary ---
Author Organization [facility] Address [address] [place] [address] Phone Care Team Providers Care Route Salesman Name Role Phone Clive Rodríguez Miguel BROOKS Primary Care Provider [phone] Encounter Details Date Type Department Care Team (Late st Contact Info) Description 04/12/2024 Scanned Document [facility] [address] [place] [phone] Scanning, Generic Provider Social History Tobacco Use [...] Description 09/02/2024 8:30 AM EDT Office Visit [facility] [address] [address] Epifanio Talbot MD 703 [facility] 2, [address] [place] [address] documented as of this encounter Procedures Procedure Name Priority Date/Time Associated Diagnosis Comments OUTSIDE LAB SCAN 04/12/2024 documented in this encounter Results * OUTSIDE LAB SCAN (04/12/2024) Narrative 04/12/2024 Ordered by an unspecified provider. us Generic Provider Scanning OUTSIDE SCAN Final Result documented in this encounter Visit Diagnoses Not on filedocumented in this encounter Additional Health Concerns Assessment Noted Time A fall risk assessment has been complete d for the patient 08/31/2023 8:31 AM EDT documented as of this encounter Care Teams Route Salesman Relationship Specialty Start Date End Date Clive Rodríguez DO [address] [place] [address] PCP - General Family Medicine 02/17/24 documented as of this encounter
--- OUTSIDE RECORDS SUMMARY | 2024-09-01 12:28 | XMS_ITS | Encounter Summary ---
Author Organization [facility] Address [address] [place] [address] Phone Care Team Providers Care Corporate Driver Name Role Phone Clive Rodríguez DO Primary Care Provider [phone] Clive Rodríguez DO Primary Care Provider [phone] Encounter Details Date Type Department Care Team (Late st Contact Info) Description 1935 Scanned Document [facility] [address] [place] [phone] Scanning, Generic Provider Social History Tobacco Use [...] Description 09/02/2024 8:30 AM EDT Office Visit [facility] [address] [phone] Epifanio Talbot MD 703 [facility] 2, [address] [place] [address] documented as of this encounter Procedures Procedure Name Priority Date/Time Associated Diagnosis Comments OUTSIDE LAB SCAN 1936 documented in this encounter Results * OUTSIDE LAB SCAN (1936) Narrative 1935 Ordered by an unspecified provider. us Generic Provider Scanning OUTSIDE SCAN Final Result documented in this encounter Visit Diagnoses Not on filedocumented in this encounter Care Teams Corporate Driver Relationship Specialty Start Date End Date Clive Rodríguez DO PCP - General 06/29/18 02/16/24 Clive Rodríguez DO [address] [place] [address] PCP - General Family Medicine 02/17/24 documented as of this encounter
--- OUTSIDE RECORDS SUMMARY | 2024-09-01 12:28 | XMS_ITS | Clinical Summary ---
Author Organization [facility] Address [address] [place] [address] Care Team Providers Care On Site Wastewater Systems Technician Name Role Phone Unavailable Primary Care Provider Unavailabl e Allergies No known active allergies Medications atorvastatin (LIPITOR) 20 MG tablet Take 1 tablet by mouth daily 07/05/2023 Active donepezil (ARICEPT) 5 MG tablet Take 1 tablet by mouth Daily 07/05/2023 Active insulin glargine (LANTUS SOLOSTAR) 100 UNIT/ML injection Inject 10 Units into the skin nightly Active lisinopril (PRINIVIL;ZESTR IL) 5 MG tablet Take 0.5 tablets by mouth daily 07/05/2023 Active warfarin (COUMADIN) 5 MG tablet Take 1 tablet by mouth daily Active ARIPiprazole (ABILIFY) 2 MG tablet Take 1 tablet by mouth 2 times daily (with meals) Active glipiZIDE (GLUCOTROL) 5 MG tablet Take 1 tablet by mouth 2 times daily (with meals) Active sertraline (ZOLOFT) 50 MG tablet Take 1 tablet by mouth daily Active acetaminophen (TYLENOL) 325 MG tablet Take 2 tablets by mouth every 6 hours as needed for Pain Active insulin lispro protamine & lispro (HUMALOG MIX) (75-25) 100 UNIT per ML SUSP injection vial Inject into the skin 4 times daily (with meals and nightly) Active melatonin 3 MG TABS tablet Take 1 tablet by mouth nightly as needed Active OLANZapine (ZYPREXA) 5 MG tablet Take 1 tablet by mouth 3 times daily as needed (agitation) Active finasteride (PROSCAR) 5 MG tablet Take 1 tablet by mouth daily 30 tablet 3 07/11/2023 Active gabapentin (NEURONTIN) 100 MG capsule Take 1 capsule by mouth 2 times daily for 10 days. 0 07/10/2023 Active tamsulosin (FLOMAX) 0.4 MG capsule Take 1 capsule by mouth daily 30 capsule 3 07/11/2023 Active Active Problems Problem Noted Date Diagnosed Date Altered mental status 07/09/2023 Cellulitis of left leg 07/09/2023 Venous stasis ulcer of left lower extremity 06/21 Palliative care encounter 07/08/2023 Goals of care, counseling/discussion 07/08/2023 Advanced care planning/counseling discussion History of dementia 07/08/2023 Sepsis 07/07/2023 Social History Tobacco Use Types Packs/Day Years Used Date Smoking Tobacco: Never Smokeless Tobacco: Never Tobacco Cessation:Counseling Given: Not Answered Alcohol Use Standard Drinks/Week Comments Not Currently 0 (1 standard drink = 0.6 oz pur e alcohol) [facility] Utilities Answer Date Recorded In the past 12 months has th e optionsXpress, gas, oil, or water [employer] threatened to shut off services in your home? No 07/07/2023 AUDIT-C Answer Date Recorded Q1: How often do you have a drink containing alcohol? Never 07/07/2023 Q2: How many drinks containi ng alcohol do you have on a typical day when you are drinking? Patient does not drink Q3: How often do you have si x or more drinks on one occasion? Never 07/07/2023 Hunger Vital Sign Answer Date Recorded Within the past 12 months, y ou worried that your food would run out before you got the money to buy more. Never true 07/07/19 24 Within the past 12 months, t he food you bought just didn't last and you didn't have money to get more. Never true 07/07/2023 PRAPARE - Transportation Answer Date Re corded In the past 12 months, has l ack of transportation kept you from medical appointments or from getting medications? No 06/21 In the past 12 months, has l ack of transportation kept you from meetings, work, or from getting things needed for daily living? No 07/07/2023 Housing Stability Vital Sign Answer Malachi e Recorded In the last 12 months, was t here a time when you were not able to pay the mortgage or rent on time? No 07/07/2023 In the last 12 months, how many places have you lived? 1 07/07/2023 In the last 12 months, was t here a time when you did not have a steady place to sleep or slept in a senior care (including now)? No 07/07/2023 Food Insecurity Answer Date Recorded Within the past 12 months, y ou worried that your food would run out before you got the money to buy more. 1 07/07/2023 Within the past 12 months, t he food you bought just didn't last and you didn't have money to get more. 1 07/07/2023 Interpersonal Safety Domain Source: IP Abuse Scr eening Answer Date Recorded Read-Only, Retired: Physical Abuse Unable to ass ess 07/07/2023 Read-Only, Retired: Verbal Abuse Unable to asses s 07/07/2023 Read-Only, Retired: Emotional abuse Unable to as sess 07/07/2023 Read-Only, Retired: Financial Abuse Unable to as sess 07/07/2023 Read-Only, Retired: Sexual abuse Unable to asses s 07/07/2023 Sex and Gender Information Value Date Recorded Sex Assigned at Not on file Legal Sex Male 1:53 AM EDT Gender Identity Not on file Sexual Orientation Not on file Last Filed Vital Signs Vital Sign Reading Time Taken Comments Blood Pressure 140/65 07/10/2023 4:39 PM EDT Pulse 67 07/10/2023 4:39 PM EDT Temperature 36.6 C (97.9 F) 07/10/2023 4:39 PM EDT Respiratory Rate 18 07/10/2023 4:39 PM EDT Oxygen Saturation 100% 07/10/2023 4:39 PM EDT Inhaled Oxygen Concentration - - Weight 82.1 kg (180 lb 14.4 oz) 07/09/2023 6:00 AM EDT Height 177 cm (5' 9.69 ) 07/08/2023 2:42 PM EDT Body Mass Index 26.19 07/08/2023 2:42 PM EDT Plan of Treatment Health Maintenance Due Date Last Done Comments Lipids 1945 Depression Screen 1948 Respiratory Syncytial Virus (RSV) or age 60 yrs+ (1 - 1-dose 75+ series) 06/15/2011 Shingles vaccine (2 of 3) 12/16/2012 10/21/2012 Pneumococcal 50+ years Vacci ne (2 of 2 - PPSV23) 01/08/2019 01/08/2018 Annual Wellness Visit (Medicare) 06/29/2023 COVID-19 Vaccine (1 - 2023-2 5 season) 2023 Flu vaccine (Season Ended) 10/21/202412/21, 01/11/2020, 01/02/2019 DTaP/Tdap/Td vaccine (2 - Td or Tdap) 01/02/2029 01/02/2019 Hepatitis A vaccine Aged Out No longe r eligible based on patient's age to complete this topic Hepatitis B vaccine Aged Out No longe r eligible based on patient's age to complete this topic Hib vaccine Aged Out No longer eligi ble based on patient's age to complete this topic Meningococcal (ACWY) vaccine Aged Out No longer eligible based on patient's age to complete this topic Meningococcal B vaccine Aged Out No l onger eligible based on patient's age to complete this topic Polio vaccine Aged Out No longer elig ible based on patient's age to complete this topic Insurance MEDICARE Member Subscriber Plan / Payer (Ef fective 2001-Present) Name:Vincent Greer Relation to Subscriber:Self Name:Vincent Greer Payer ID:Not on file Group ID:Not on file Type:Not on file Address: [address] Advance Directives Documents on File Type Date Recorded Patient Stave Inspector Expl anation ACP-Advance Directive 07/13/2023 12:38 PM * Full Code (Latest Code Status on File) Date Activated Date Inactivated Comments 07/07/2023 10:40 PM 07/10/2023 8:37 PM Healthcare Agents on File Name Relationship Healthcare Agent [facility] Renettatimi Jones Child Primary Decision Maker Bladimir Percy Child Secondary Decision Maker
--- OUTSIDE RECORDS SUMMARY | 2024-09-01 12:28 | XMS_ITS | Encounter Summary ---
Author Organization [facility] Address [address] [place] [address] Phone Care Team Providers Care International Logistics Analyst Name Role Phone Clive Rodríguez DO Primary Care Provider Clive Rodríguez DO Primary Care Provider [phone] Encounter Details Date Type Department Care Team (Late st Contact Info) Description 03/26/2020 Orders Only [facility] [address] [place] [address] Conversion, Onbase Social History Tobacco Use Types [...] Description 09/02/2024 8:30 AM EDT Office Visit [facility] [address] [address] Epifanio Talbot MD 703 [facility] 2, [address] [place] [address] Scheduled Orders Name Type Priority Associated Diagnoses Orde r Schedule OUTSIDE LAB SCAN Lab Ordered: 03/26/2020 documented as of this encounter Visit Diagnoses Not on filedocumented in this encounter Care Teams International Logistics Analyst Relationship Specialty Start Date End Date Clive Rodríguez DO PCP - General 06/29/18 02/16/24 Clive Rodríguez DO [address] [place] [address] PCP - General Family Medicine 02/17/24 documented as of this encounter
--- OUTSIDE RECORDS SUMMARY | 2024-09-01 12:28 | XMS_ITS | Encounter Summary ---
Author Organization [facility] Address [address] [place] [address] Phone Care Team Providers Care Business Continuity Director Name Role Phone Clive Rodríguez Miguel BROOKS Primary Care Provider [phone] Encounter Details Date Type Department Care Team (Late st Contact Info) Description 07/12/2024 Scanned Document [facility] [address] [place] [phone] Scanning, Generic Provider Social History Tobacco Use [...] Description 09/02/2024 8:30 AM EDT Office Visit [facility] [address] [address] Epifanio Talbot MD 703 [facility] 2, [address] [place] [address] documented as of this encounter Procedures Procedure Name Priority Date/Time Associated Diagnosis Comments OUTSIDE IMAGING SCAN 07/12/2024 documented in this encounter Results * OUTSIDE IMAGING SCAN (07/12/2024) Anatomical Region Laterality Modality Other Narrative 07/12/2024 Ordered by an unspecified provider. us Generic Provider Scanning OUTSIDE SCAN Final Result documented in this encounter Visit Diagnoses Not on filedocumented in this encounter Additional Health Concerns Assessment Noted Time A fall risk assessment has been complete d for the patient 08/31/2023 8:31 AM EDT documented as of this encounter Care Teams Business Continuity Director Relationship Specialty Start Date End Date Clive Rodríguez DO [address] [place] [address] PCP - General Family Medicine 02/17/24 documented as of this encounter
--- OUTSIDE RECORDS SUMMARY | 2024-09-01 12:28 | XMS_ITS | Encounter Summary ---
Author Organization [facility] Address [address] [place] [address] Phone Care Team Providers Care Machine Heddle Cleaner Name Role Phone Clive Rodríguez Miguel BROOKS Primary Care Provider [phone] Encounter Details Date Type Department Care Team (Late st Contact Info) Description 06/28/2024 Scanned Document [facility] [address] [place] [phone] Scanning, Generic Provider Social History Tobacco Use [...] Description 09/02/2024 8:30 AM EDT Office Visit [facility] [address] [address] Epifanio Talbot MD 703 [facility] 2, [address] [place] [address] documented as of this encounter Procedures Procedure Name Priority Date/Time Associated Diagnosis Comments OUTSIDE LAB SCAN 06/28/2024 documented in this encounter Results * OUTSIDE LAB SCAN (06/28/2024) Narrative 06/28/2024 Ordered by an unspecified provider. us Generic Provider Scanning OUTSIDE SCAN Final Result documented in this encounter Visit Diagnoses Not on filedocumented in this encounter Additional Health Concerns Assessment Noted Time A fall risk assessment has been complete d for the patient 08/31/2023 8:31 AM EDT documented as of this encounter Care Teams Machine Heddle Cleaner Relationship Specialty Start Date End Date Clive Rodríguez DO [address] [place] [address] PCP - General Family Medicine 02/17/24 documented as of this encounter
--- OUTSIDE RECORDS SUMMARY | 2024-09-01 12:28 | XMS_ITS | Encounter Summary ---
Author Organization [facility] Address [address] [place] [address] Phone Care Team Providers Care Stain Remover Name Role Phone Clive Rodríguez DO Primary Care Provider [phone] Clive Rodríguez DO Primary Care Provider [phone] Encounter Details Date Type Department Care Team (Late st Contact Info) Description 1935 Orders Only [facility] [address] [place] [phone] Scanning, Generic Provider Social History Tobacco Use [...] Description 09/02/2024 8:30 AM EDT Office Visit [facility] [address] [phone] Epifanio Talbot MD 703 [facility] 2, [address] [place], [place] [phone] Scheduled Orders Name Type Priority Associated Diagnoses Orde r Schedule OUTSIDE LAB SCAN Lab Ordered: 1935 documented as of this encounter Visit Diagnoses Not on filedocumented in this encounter Care Teams Stain Remover Relationship Specialty Start Date End Date Clive Rodríguez DO PCP - General 06/29/18 02/16/24 Clive Rodríguez DO [facility] [place] [address] PCP - General Family Medicine 02/17/24 documented as of this encounter
--- OUTSIDE RECORDS SUMMARY | 2024-09-01 12:28 | XMS_ITS | Encounter Summary ---
Author Organization [facility] Address [address] [place] [address] Phone Care Team Providers Care Columnist/Commentator Name Role Phone Clive Rodríguez Miguel BROOKS Primary Care Provider [phone] Encounter Details Date Type Department Care Team (Late st Contact Info) Description 06/21/2024 Scanned Document [facility] [address] [place] [phone] Scanning, Generic Provider Social History Tobacco Use [...] Description 09/02/2024 8:30 AM EDT Office Visit [facility] [address] [address] Epifanio Talbot MD 703 [facility] 2, [address] [place] [address] documented as of this encounter Procedures Procedure Name Priority Date/Time Associated Diagnosis Comments OUTSIDE LAB SCAN 06/21/2024 documented in this encounter Results * OUTSIDE LAB SCAN (06/21/2024) Narrative 06/21/2024 Ordered by an unspecified provider. us Generic Provider Scanning OUTSIDE SCAN Final Result documented in this encounter Visit Diagnoses Not on filedocumented in this encounter Additional Health Concerns Assessment Noted Time A fall risk assessment has been complete d for the patient 08/31/2023 8:31 AM EDT documented as of this encounter Care Teams Columnist/Commentator Relationship Specialty Start Date End Date Clive Rodríguez DO [address] [place] [address] PCP - General Family Medicine 02/17/24 documented as of this encounter
--- OUTSIDE RECORDS SUMMARY | 2024-09-01 12:28 | XMS_ITS | Encounter Summary ---
Author Organization [facility] Address [address] [place] [address] Phone Care Team Providers Care Siebel Architect Name Role Phone Clive Rodríguez DO Primary Care Provider [phone] Encounter Details Date Type Department Care Team (Late st Contact Info) Description 07/15/2024 Scanned Document [facility] [address] [place] [phone] Scanning, Generic Provider Social History Tobacco Use [...] Description 09/02/2024 8:30 AM EDT Office Visit [facility] [address] [address] Epifanio Talbot MD 703 [facility] 2, [address] [place] [address] documented as of this encounter Visit Diagnoses Not on filedocumented in this encounter Additional Health Concerns Assessment Noted Time A fall risk assessment has been complete d for the patient 08/31/2023 8:31 AM EDT documented as of this encounter Care Teams Siebel Architect Relationship Specialty Start Date End Date Clive Rodríguez DO [facility] [place] [address] PCP - General Family Medicine 02/17/24 documented as of this encounter
--- OUTSIDE RECORDS SUMMARY | 2024-09-01 12:28 | XMS_ITS | Clinical Summary ---
Author Organization [facility] Address [address] [place] [address] Phone Care Team Providers Care Metal Tank Erector Name Role Phone IsraelClive marie Miguel DO Primary Care Provider [phone] Allergies No known active allergies Medications aspirin 81 mg EC tablet Take 1 tablet (81 mg) by mouth once daily. Active ferrous sulfate, 325 mg ferrous sulfate, tablet Take 1 tablet by mouth once daily. Active glimepiride (Amaryl) 4 mg tablet Take 1 tablet (4 mg) by mouth 2 times a day. Active sitaGLIPtin phosphate (Januvia) 100 mg tablet Take 1 tablet (100 mg) by mouth once daily. Active Lantus U-100 Insulin 100 unit/mL injection Inject under the skin. Active warfarin (Coumadin) 5 mg tabletIndications: Paroxysmal atrial fibrillation (Multi),S/P aortic valve replacement Take 1 tablet (5 mg) by mouth see administration instructions. As directed per [facility] 60 tablet 02/26/20 23 Active calcium carbonate (CALCIUM 500 ORAL) Take 1 tablet by mouth early in the morning.. Active atorvastatin (Lipitor) 20 mg tabletIndications: Mixed hyperlipidemia Take 1 tablet (20 mg) by mouth once daily at bedtime. 90 tablet 3 08/31/19 24 Active lisinopril 2.5 mg tabletIndications: Atherosclerosis of [place] coronary artery of [place] heart without angina pectoris,S/P CABG (coronary artery bypass graft),Status post angioplasty Take 1 tablet (2.5 mg) by mouth once daily. 90 tablet 3 08/31/19 24 Active Active Problems Problem Noted Date Diagnosed Date BMI 24.0-24.9, adult 08/31/2023 Never smoked tobacco 08/31/2023 High risk medication use 05/25/2023 Atherosclerosis of coronary artery of [place] heart without angina pectoris 02/10/2023 Diabetes mellitus (Multi) 02/10/2023 Difficulty breathing 02/10/2023 Duodenal ulcer 02/10/2023 Erosive gastritis 02/10/2023 Hernia, hiatal 02/10/2023 History of myocardial infarction 02/10/2023 Hyperlipidemia 02/10/2023 Paroxysmal atrial fibrillation (Multi) S/P aortic valve replacement 02/10/2023 S/P CABG (coronary artery bypass graft) 02/11/20 Status post angioplasty 02/10/2023 Encounters Date Type Department Care Team Description 07/15/2024 Scanned Document [facility] [address] [place] [address] Scanning, Generic Provider 07/12/2024 Scanned Document [facility] [address] [place] [address] Scanning, Generic Provider 06/28/2024 Scanned Document [facility] [address] [place] [address] Scanning, Generic Provider 06/21/2024 Scanned Document [facility] [address] [place] [address] Scanning, Generic Provider 06/16/2024 Scanned Document [facility] [address] [place] [address] Scanning, Generic Provider 06/08/2024 Scanned Document [facility] [address] [place] [address] Scanning, Generic Provider from Last 3 Months Immunizations Immunization Administration Dates Next Due Flu vaccine, trivalent, pres ervative free, HIGH-DOSE, age 65y+ (Fluzone) 12/21/2020,01/02/2019 Pneumococcal conjugate vaccine, 13-valent (PREVN AR 13) 01/08/2018 Tdap vaccine, age 7 year and older (BOOSTRIX, AD ACEL) 01/02/2019 Zoster, live 10/21/2012 Family History Medical History Relation Name Comments No Known Problems Mother Relation Name Status Comments Mother Social History Tobacco Use Types Packs/Day Years [...] Sign Reading Time Taken Comments Blood Pressure 110/70 08/31/2023 8:32 AM EDT Pulse 60 08/31/2023 8:32 AM EDT Temperature - - Respiratory Rate - - Oxygen Saturation - - Inhaled Oxygen Concentration - - Weight 79.3 kg (174 lb 12.8 oz) 08/31/2023 8:32 AM EDT Height 180.3 cm (5' 11 ) 08/31/2023 8:32 AM EDT Body Mass Index 24.38 08/31/2023 8:32 AM EDT Plan of Treatment Upcoming Encounters Date Type Department Care Team (Late st Contact Info) Description 09/02/2024 8:30 AM EDT Office Visit [facility] [address] [address] Epifanio Talbot MD 703 [facility] 2, [address] [address] Health Maintenance Due Date Last Done Comments Diabetes: Urine Protein Screening 1935 Medicare Annual Wellness Visit (AWV) 1935 Diabetes: Retinopathy Screening 1945 RSV High Risk: (Elderly (60+) or Population) (1 - 1-dose 75+ series) 06/15/2011 Zoster Vaccines (2 of 3) 12/16/2012 10/21/2012 Pneumococcal Vaccine (2 of 2 - PPSV23, PCV20, or PCV21) 03/05/2018 01/08/2018 Diabetes: Hemoglobin A1C 10/06/2023 07/07/2023 COVID-19 Vaccine ( - season) 2023 Creatinine Level 07/06/2024 07/07/2023, 02/2024, 06/29/2023 Potassium Level 07/06/2024 07/07/2023, 06/21, 06/29/2023 Echocardiogram 07/07/2024 07/08/2023, 07/08/2023 Influenza Vaccine (Season Ended) 2024 12/21/2020, 01/11/2020, 01/03/2019, Additional history exists Lipid Panel 08/03/2025 08/03/2024 DTaP/Tdap/Td Vaccines (2 - Td or Tdap) 01/02/2029 01/02/2019 HIB Vaccines Aged Out No longer eligi ble based on patient's age to complete this topic HPV Vaccines Aged Out No longer eligi ble based on patient's age to complete this topic Hepatitis A Vaccines Aged Out No long er eligible based on patient's age to complete this topic Hepatitis B Vaccines Aged Out No long er eligible based on patient's age to complete this topic IPV Vaccines Aged Out No longer eligi ble based on patient's age to complete this topic Meningococcal Vaccine Aged Out No jarrod shavonne eligible based on patient's age to complete this topic Rotavirus Vaccines Aged Out No longer eligible based on patient's age to complete this topic Procedures Procedure Name Priority Date/Time Associated Diagnosis Comments OUTSIDE IMAGING SCAN 07/12/2024 OUTSIDE LAB SCAN 06/28/2024 OUTSIDE LAB SCAN 06/21/2024 OUTSIDE LAB SCAN 06/16/2024 OUTSIDE LAB SCAN 06/08/2024 from Last 3 Months Results * OUTSIDE IMAGING SCAN (07/12/2024) Anatomical Region Laterality Modality Other Narrative 07/12/2024 Ordered by an unspecified provider. us Generic Provider Scanning OUTSIDE SCAN Final Result * OUTSIDE LAB SCAN (06/28/2024) Only the most recent of4 resultswithin the time period is included. Narrative 06/28/2024 Ordered by an unspecified provider. us Generic Provider Scanning OUTSIDE SCAN Final Result from Last 3 Months Insurance MEDICARE PART A AND B [facility] Care Teams Metal Tank Erector Relationship Specialty Start Date End Date Clive Rodríguez DO [address] [place] [address] PCP - General Family Medicine 02/17/24
--- OUTSIDE RECORDS SUMMARY | 2024-09-01 12:28 | XMS_ITS | Encounter Summary ---
Author Organization [facility] Address [address] [place] [address] Phone Care Team Providers Care Wood Patternmaker Apprentice Name Role Phone Clive Rodríguez DO Primary Care Provider [phone] Clive Rodríguez DO Primary Care Provider [phone] Encounter Details Date Type Department Care Team (Late st Contact Info) Description 12/19/2019 Orders Only [facility] [address] [place] [address] Conversion, Onbase Social History Tobacco Use Types [...] Description 09/02/2024 8:30 AM EDT Office Visit [facility] [address] [address] Epifanio Talbot MD 703 [employer] [address] [place] [address] Scheduled Orders Name Type Priority Associated Diagnoses Orde r Schedule OUTSIDE LAB SCAN Lab Ordered: 12/19/2019 documented as of this encounter Visit Diagnoses Not on filedocumented in this encounter Care Teams Wood Patternmaker Apprentice Relationship Specialty Start Date End Date Clive Rodríguez DO PCP - General 06/29/18 02/16/24 Clive Rodríguez DO [address] [place] [address] PCP - General Family Medicine 02/17/24 documented as of this encounter
--- OUTSIDE RECORDS SUMMARY | 2024-09-01 12:28 | XMS_ITS | Encounter Summary ---
Author Organization [facility] Address [address] [place] [address] Phone Care Team Providers Care Pocket Marker Name Role Phone Clive Rodríguez DO Primary Care Provider [phone] Clive Rodríguez DO Primary Care Provider [phone] Encounter Details Date Type Department Care Team (Late st Contact Info) Description 05/14/2020 Orders Only [facility] [address] [place] [address] Conversion, Onbase Social History Tobacco Use Types [...] Description 09/02/2024 8:30 AM EDT Office Visit [facility] [address] [address] Epifanio Talbot MD 703 [facility] 2, [address] [place] [address] Scheduled Orders Name Type Priority Associated Diagnoses Orde r Schedule OUTSIDE LAB SCAN Lab Ordered: 05/14/2020 documented as of this encounter Visit Diagnoses Not on filedocumented in this encounter Care Teams Pocket Marker Relationship Specialty Start Date End Date Clive Rodríguez DO PCP - General 06/29/18 02/16/24 Clive Rodríguez DO [address] [place] [address] PCP - General Family Medicine 02/17/24 documented as of this encounter
--- OUTSIDE RECORDS SUMMARY | 2024-09-01 12:28 | XMS_ITS | Encounter Summary ---
Author Organization [facility] Address [address] [place] [address] Phone Care Team Providers Care Catalyst Impregnator Name Role Phone Clive Rodríguez DO Primary Care Provider [phone] Clive Rodríguez DO Primary Care Provider [phone] Encounter Details Date Type Department Care Team (Late st Contact Info) Description 03/07/2023 Scanned Document [facility] [address] [place] [id number] Scanning, Generic Provider Social History Tobacco Use [...] Description 09/02/2024 8:30 AM EDT Office Visit [facility] 703 [facility] [address] [place] [address] Epifanio Talbot MD 703 [facility] 2, [address] [place], [place] [phone] documented as of this encounter Visit Diagnoses Not on filedocumented in this encounter Care Teams Catalyst Impregnator Relationship Specialty Start Date End Date Clive Rodríguez DO PCP - General 06/29/18 02/16/24 Clive Rodríguez DO [address] [place] [address], [place] [address] PCP - General Family Medicine 02/17/24 documented as of this encounter
--- OUTSIDE RECORDS SUMMARY | 2024-09-01 12:28 | XMS_ITS | Encounter Summary ---
Author Organization [facility] Address [address] [place] [address] Phone Care Team Providers Care Plow Holder Name Role Phone Clive Rodríguez DO Primary Care Provider [phone] Clive Rodríguez DO Primary Care Provider [phone] Encounter Details Date Type Department Care Team (Late st Contact Info) Description 07/31/2020 Orders Only [facility] [address] [place] [address] Conversion, Onbase Social History Tobacco Use Types [...] EDT Office Visit [facility] [address] [address] Epifanio Talbot MD 703 [facility] 2, [address] [place] [address] Scheduled Orders Name Type Priority Associated Diagnoses Orde r Schedule OUTSIDE LAB SCAN Lab Ordered: 07/31/2020 documented as of this encounter Visit Diagnoses Not on filedocumented in this encounter Care Teams Plow Holder Relationship Specialty Start Date End Date Clive Rodríguez DO PCP - General 06/29/18 02/16/24 Clive Rodríguez DO [address] [place] [address] PCP - General Family Medicine 02/17/24 documented as of this encounter
--- OUTSIDE RECORDS SUMMARY | 2024-09-01 12:28 | XMS_ITS | Encounter Summary ---
Author Organization [facility] Address [address] [place] [address] Phone Care Team Providers Care Primary Education Professor Name Role Phone Clive Rodríguez DO Primary Care Provider [phone] Clive Rodríguez DO Primary Care Provider [phone] Encounter Details Date Type Department Care Team (Late st Contact Info) Description 05/16/2020 Orders Only [facility] [address] [place] [address] Conversion, Onbase Social History Tobacco Use Types [...] Description 09/02/2024 8:30 AM EDT Office Visit [facility] [address] [address] Epifanio Talbot MD 703 [facility] 2, [address] [place] [address] Scheduled Orders Name Type Priority Associated Diagnoses Orde r Schedule OUTSIDE LAB SCAN Lab Ordered: 05/16/2020 documented as of this encounter Visit Diagnoses Not on filedocumented in this encounter Care Teams Primary Education Professor Relationship Specialty Start Date End Date Clive Rodríguez DO PCP - General 06/29/18 02/16/24 Cilve Rodríguez DO [address] [place] [address] PCP - General Family Medicine 02/17/24 documented as of this encounter
--- OUTSIDE RECORDS SUMMARY | 2024-09-01 12:28 | XMS_ITS | Encounter Summary ---
Author Organization [facility] Address [address] [place] [address] Phone Care Team Providers Care Bulk Sugar Handler Name Role Phone Clive Rodríguez DO Primary Care Provider [phone] Clive Rodríguez DO Primary Care Provider [phone] Encounter Details Date Type Department Care Team (Late st Contact Info) Description 04/24/2020 Orders Only [facility] [address] [place] [address] Conversion, Onbase Social History Tobacco Use Types [...] Description 09/02/2024 8:30 AM EDT Office Visit [facility] [address] [address] Epifanio Talbot MD 703 [facility] 2, [address] [place] [address] Scheduled Orders Name Type Priority Associated Diagnoses Orde r Schedule OUTSIDE LAB SCAN Lab Ordered: 04/24/2020 documented as of this encounter Visit Diagnoses Not on filedocumented in this encounter Care Teams Bulk Sugar Handler Relationship Specialty Start Date End Date Clive Rodríguez DO PCP - General 06/29/18 02/16/24 Clive Rodríguez DO [address] [place] [address] PCP - General Family Medicine 02/17/24 documented as of this encounter
--- NOTE | 2024-09-01 12:34 | ECG_ITS ---
[facility] Test Date: 2024-09-01 Pat Name: JOHNATHAN BARKER Department: Room: - Gender: Male Water Pump Installer: : 1935 Requested By: Order Number: [id number] Reading MD: LISSETH OSMAN M.D. Measurements Intervals [place] Rate: 69 P: -[phone] [place]: -[address] QRS: -21 QRSD: 138 T: 117 QT: 424 QTc: 443 Interpretive Statements 92910 Atrial fibrillation with aberrant conduction, or ventricular premature complexes 2330 Nonspecific intraventricular conduction block 7202 Moderate left axis deviation 9150 abnormal ECG Compared to ECG 08/02/2024 20:30:26 No significant changes Electronically Signed On 09-01-2024 18:38:00 EDT by LISSETH OSMAN M.D.
[2024-09-01 12:48] LABS: Glucometer 104 mg/dL (74-106)
[2024-09-01 13:01] LABS: Basophils Percent Auto 0.3 % (0.2-2.0); Eosinophils Absolute Auto 0.1 10^3/uL (0.0-0.7); Eosinophils Percent Auto 1.4 % (0.9-7.0); Hematocrit 31.2 % (42.0-54.0); Hemoglobin 9.4 g/dL (14.0-18.0); Immature Granulocytes Abs Auto 0.02 10^3/uL (0.00-0.03); Immature Granulocytes Pct Auto 0.3 % (0.0-0.5); Lymphocytes Absolute Auto 0.6 10^3/uL (1.2-3.8); Lymphocytes Percent Auto 8.7 % (20.5-60.0); Mean Corpuscular HGB Conc 30.1 g/dL (29.9-35.2); Mean Corpuscular Hemoglobin 27.6 pg (25.9-34.0); Mean Corpuscular Volume 91.8 fL (80.0-94.0); Mean Platelet Volume 10.6 fL (9.5-13.5); Monocytes Absolute Auto 0.5 10^3/uL (0.3-0.8); Monocytes Percent Auto 7.5 % (1.7-12.0); Neutrophils Absolute Auto 5.9 10^3/uL (1.4-6.5); Neutrophils Percent Auto 81.8 % (43.0-75.0); Platelet Count 149 10^3/uL (150-450); Red Cell Distribution Width 17.6 % (11.0-15.0); White Blood Count 7.2 10^3/uL (4.0-11.0)
[2024-09-01 13:04] LABS: Anion Gap 8.2; BUN Creatinine Ratio 15.4; Calcium 9.1 mg/dL (8.5-10.1); Carbon Dioxide 30.8 mmol/L (21.0-32.0); Chloride 101 mmol/L (98-107); Estimated GFR (African America >60 (>=60 mL/min/1.73m^2); Estimated GFR (Non-African Ame 52 (>=60 mL/min/1.73m^2); Glucose 111 mg/dL (74-106); Sodium 136 mmol/L (136-145)
[2024-09-01 13:07] LABS: INR 3.46; Prothrombin Time 32.4 sec (9.0-11.6)
--- NOTE | 2024-09-01 13:33 | ED.GENADUL1 ---
HPI HPI - General Adult General Chief complaint: Weakness Stated complaint: HYPOTENSION Time Seen by Provider: 09/01/24 13:34 Source: patient and other (ems/ NH reports) Source information: pt/ems Mode of arrival: ambulance History of Present Illness HPI narrative: Patient sent from [place] with low bp. Report from [place] sts 80mm/hg bilat. Ems notes 120mm/hg. patient sts he had some sob and n/v yesterday. pt denies cp/n/v/urinary bleeding/rectal bleeding/ fever/chills/cough. pt has hx of atrial fibrillation and takes warfarin. sx mild to moderate in severity. nothing improves or worsens his sx. Onset (ago): hour(s) Related Data Home Medications ?Medication ?Instructions ?Recorded ?Confirmed acetaminophen 325 mg capsule 650 mg PO Q6H PRN fever or pain 08/02/24 08/02/24 albuterol sulfate 0.63 mg/3 mL 0.63 mg inhalation Q6H PRN 08/02/24 08/02/24 solution for nebulization shortness of breath or wheezing aripiprazole 2 mg tablet 2 mg PO BID 08/02/24 09/01/24 atorvastatin 20 mg tablet 40 mg PO DAILY 08/02/24 09/01/24 cephalexin 500 mg capsule 500 mg PO TID 08/02/24 08/02/24 dapagliflozin propanediol 10 mg 10 mg PO DAILY 08/02/24 09/01/24 tablet donepezil 5 mg tablet 5 mg PO DAILY 08/02/24 09/01/24 finasteride 5 mg tablet 5 mg PO BEDTIME 08/02/24 09/01/24 insulin aspart U-100 100 unit/mL 1 sliding scale dose subcut 08/02/24 (3 mL) subcutaneous pen (Novolog FlexPen U-100 Insulin aspart) insulin glargine 100 unit/mL (3 15 unit subcut BEDTIME 08/02/24 09/01/24 mL) subcutaneous pen (Lantus Solostar U-100 Insulin) ipratropium 0.5 mg-albuterol 3 mg 3 ml inhalation TID 08/02/24 08/02/24 (2.5 mg base)/3 mL nebulization soln lisinopril 2.5 mg tablet 5 mg PO DAILY 08/02/24 09/01/24 ondansetron 4 mg disintegrating 4 mg PO Q6H 08/02/24 09/01/24 tablet pantoprazole 40 mg tablet,delayed 40 mg PO DAILY 08/02/24 08/02/24 release prednisone 20 mg tablet 60 mg PO DAILY 08/02/24 08/02/24 sertraline 50 mg tablet 50 mg PO Q24H 08/02/24 09/01/24 tamsulosin 0.4 mg capsule 0.4 mg PO Q24H 08/02/24 09/01/24 trazodone 50 mg tablet 50 mg PO DAILY 08/02/24 08/02/24 warfarin 7.5 mg tablet 4 mg PO DAILY 08/02/24 08/02/24 clopidogrel 75 mg tablet 75 mg PO DAILY 09/01/24 09/01/24 furosemide 20 mg tablet (Lasix) 20 mg PO DAILY 09/01/24 09/01/24 midodrine 2.5 mg tablet 2.5 mg PO BID 09/01/24 09/01/24 Allergies Allergy/AdvReac Type Severity Reaction Status Date / Time No Known Drug Allergies Allergy Verified 08/02/24 20:25 Opioid HPI Opioid Management Most Recent Opioid Data: Last Pain Scale 0 Today, 12:51 Last ED Pain Assessment Today, 12:51 Review of Systems ROS Status of ROS 10 or more systems reviewed and unremarkable except as noted in history and below Constitutional Denies: fever or chills Eyes Denies: change in vision Ears, nose, mouth, and throat Denies: throat pain Cardiovascular Denies: chest pain Respiratory Reports: shortness of breath Gastrointestinal Denies: abdominal pain Genitourinary Denies: painful urination or blood in urine Hematologic/Lymphatic Reports: easy bruising PFSH PFS Medical History (Updated 09/01/24 @ 13:55 by SOFIE EATON II) Atherosclerotic coronary vascular disease ?I25.10 - Atherosclerotic heart disease of [place] coronary artery without angina pectoris (ICD-10) Hx of traumatic brain injury ?Z87.820 - Personal history of traumatic brain injury (ICD-10) Hx of subdural hemorrhage ?Z86.79 - Personal history of other diseases of the circulatory system (ICD-10) Hx of malignant neoplasm of prostate ?Z85.46 - Personal history of malignant neoplasm of prostate (ICD-10) Hx of gastric ulcer ?Z87.11 - Personal history of peptic ulcer disease (ICD-10) Surgical History (Updated 09/01/24 @ 13:21 by Luis Balbuena) Hx of prosthetic heart valve ?Z95.2 - Presence of prosthetic heart valve (ICD-10) Social History Little interest or pleasure in doing things: not at all Feeling down, depressed, or hopeless: several days Exam Constitutional Vital Signs, click to edit/add: Last Vital Signs Temp 97.7 F 09/01/24 12:23 Pulse 78 09/01/24 13:40 Resp 19 09/01/24 13:40 BP 127/62 09/01/24 13:30 Pulse Ox 94 L 09/01/24 13:40 O2 Del Method Room Air 09/01/24 12:49 Common normals: no apparent distress General appearance: cooperative Orientation/consciousness: Yes awake HENMT Common normals: normocephalic Face and sinus: normal facial exam Mouth: oral and palatal mucosa normal Throat: posterior oropharynx normal Eye Common normals: PERRL Neck & C-Spine Common normals: full ROM and supple Chest Common normals: palpation of chest normal Respiratory Common normals: normal respiratory effort Effort & inspection: able to speak in complete sentences Auscultation: clear to auscultation bilaterally Cardio Common normals: regular rate; irregular rhythm and clicks detected Rate: regular rate Rhythm: abnormal rhythm Peripheral pulses: radial pulses present GI Common normals: Normal to inspection, nondistended, normoactive bowel sounds present, soft to palpation and non-tender Extremity Common normals: no pedal edema Other: mutiple bruises noted bilateral upper / lwer extremity Neuro Common normals: oriented x3 Course Vital Signs Vital signs: Vital Signs Temperature 97.7 F 09/01/24 12:23 Pulse Rate 68 09/01/24 12:23 Respiratory Rate 18 09/01/24 12:23 Blood Pressure 125/58 09/01/24 12:23 Pulse Oximetry 98 09/01/24 12:23 Oxygen Delivery Method Room Air 09/01/24 12:23 Temperature 97.7 F 09/01/24 12:23 Pulse Rate 78 09/01/24 13:40 Respiratory Rate 19 09/01/24 13:40 Blood Pressure 127/62 09/01/24 13:30 Pulse Oximetry 94 L 09/01/24 13:40 Oxygen Delivery Method Room Air 09/01/24 12:49 Medical Decision Making MDM Narrative Medical decision making narrative: pt brought for hypotension/ improved via ems and readings in er/ multiple/ pt has new medication/ midodrine 2.5 mg. reviewed xray./ imprvoved compared to 08/02/ prior xray/ see final rad report. dw Dr Anton bill for dc. Differential Diagnosis Differential Diagnosis: hypotension/atrial fibrillation Medical Records Medical records reviewed: Yes I reviewed the patient's medical records Medical records narrative: compared xray to prior and reviewed labs from 08/02/24 Lab Data Lab results reviewed: Yes I reviewed the patient's lab results Labs: Lab Results 09/01/24 09/01/24 Range/Units 12:35 12:43 WBC 7.2 (4.0-11.0) 10^3/uL RBC 3.40 L (4.70-6.10) 10^6/uL Hgb 9.4 L (14.0-18.0) g/dL Hct 31.2 L (42.0-54.0) % MCV 91.8 (80.0-94.0) fL MCH 27.6 (25.9-34.0) pg MCHC 30.1 (29.9-35.2) g/dL RDW 17.6 H (11.0-15.0) % Plt Count 149 L (150-450) 10^3/uL MPV 10.6 (9.5-13.5) fL Neut % (Auto) 81.8 H (43.0-75.0) % Lymph % (Auto) 8.7 L (20.5-60.0) % Rolette % (Auto) 7.5 (1.7-12.0) % Eos % (Auto) 1.4 (0.9-7.0) % Baso % (Auto) 0.3 (0.2-2.0) % Neut # (Auto) 5.9 (1.4-6.5) 10^3/uL Lymph # (Auto) 0.6 L (1.2-3.8) 10^3/uL Rolette # (Auto) 0.5 (0.3-0.8) 10^3/uL Eos # (Auto) 0.1 (0.0-0.7) 10^3/uL Baso # (Auto) 0.0 (0.0-0.1) 10^3/uL Abs Immat Gran (auto) 0.02 (0.00-0.03) 10^3/uL Imm/Tot Granulo (auto) 0.3 (0.0-0.5) % PT 32.4 H (9.0-11.6) sec INR 3.46 Sodium 136 (136-145) mmol/L Potassium 4.0 (3.5-5.1) mmol/L Chloride 101 (98-107) mmol/L Carbon Dioxide 30.8 (21.0-32.0) mmol/L Anion Gap 8.2 BUN 20.0 H (7.0-18.0) mg/dL Creatinine 1.30 (0.70-1.30) mg/dL Est GFR ( Amer) >60 (>=60 mL/min/1.73m^2) Est GFR (Non-Af Amer) 52 L (>=60 mL/min/1.73m^2) BUN/Creatinine Ratio 15.4 Glucose 111 H (74-106) mg/dL Calcium 9.1 (8.5-10.1) mg/dL POC Glucose 104 (74-106) mg/dL ECG Data Attestation: I personally reviewed and interpreted this ECG as follows: Interpretation: atrial fibrillation/ rate 69bpm qrs 138 ms, qtc 443 ms+ pvc noted. Discharge Plan Discharge Chief Complaint: Weakness Clinical Impression: No problem, feared complaint unfounded Patient Disposition: Home, Self-Care Time of Disposition Decision: 13:54 Condition: Good Mode of Transportation: Private Vehicle Prescriptions / Home Meds: No Action atorvastatin 20 mg tablet 40 mg PO DAILY donepezil 5 mg tablet 5 mg PO DAILY trazodone 50 mg tablet 50 mg PO DAILY warfarin 7.5 mg tablet 4 mg PO DAILY tamsulosin 0.4 mg capsule 0.4 mg PO Q24H sertraline 50 mg tablet 50 mg PO Q24H lisinopril 2.5 mg tablet 5 mg PO DAILY finasteride 5 mg tablet 5 mg PO BEDTIME insulin aspart U-100 [Novolog FlexPen U-100 Insulin] 100 unit/mL (3 mL) insulin pen 1 sliding scale dose SUBCUT aripiprazole 2 mg tablet 2 mg PO BID insulin glargine [Lantus Solostar U-100 Insulin] 100 unit/mL (3 mL) insulin pen 15 unit SUBCUT BEDTIME ipratropium-albuterol 0.5 mg-3 mg(2.5 mg base)/3 mL solution for nebulization 3 ml inhalation TID albuterol sulfate 0.63 mg/3 mL solution for nebulization 0.63 mg inhalation Q6H PRN (Reason: shortness of breath or wheezing) dapagliflozin propanediol 10 mg tablet 10 mg PO DAILY ondansetron 4 mg tablet,disintegrating 4 mg PO Q6H pantoprazole 40 mg tablet,delayed release (DR/EC) 40 mg PO DAILY prednisone 20 mg tablet 60 mg PO DAILY Rx Instructions: days 11-21 of therapy acetaminophen 325 mg capsule 650 mg PO Q6H PRN (Reason: fever or pain) cephalexin 500 mg capsule 500 mg PO TID clopidogrel 75 mg tablet 75 mg PO DAILY furosemide [Lasix] 20 mg tablet 20 mg PO DAILY midodrine 2.5 mg tablet 2.5 mg PO BID Rx Instructions: do not give last dose of day after 6PM or within 4 hrs of bedtime Print Language: Rwandan Instructions: A-fib (Atrial Fibrillation) (ED) Additional Instructions: take midodrine as prescribed Referrals: ESTEPHANIE RHOADES [Primary Care Provider, Family Practice] - 1 week
== END 2024-09-01 14:43 | disposition home or self-care (01) ==
PROVIDERS: Physician Assistant; Emergency Provider Emergency Medicine; PCP Family Medicine
DX: Z03.89 Encounter for observation for other suspected diseases and conditions ruled out (principal); I95.9 Hypotension, unspecified; R06.02 Shortness of breath; I48.91 Unspecified atrial fibrillation; Z79.01 Long term (current) use of anticoagulants; Z95.2 Presence of prosthetic heart valve; R53.1 Weakness
CPT/HCPCS: 36415; 71045; 80048; 85025; 85610; 93005; 99285

== ENCOUNTER 2024-09-08 12:54 | Emergency (ER) | payer MEDICARE, BC, SELFPAY ==
--- OUTSIDE RECORDS SUMMARY | 2023-03-17 07:00 | XMS_ITS ---
Author Organization [facility] Servic es Address [address] [place] [address] Care Team Providers Care Ball Thread Machine Tender Name Role Phone ([facility] AMY(ID)), PHYSICIAN NOT IDENTIFIED Primary Care Provider Unavailable Vanessa Durbin [phone] REASON FOR VISIT EST CM 1 SOUTH D/C- PHONE CALL Encounters Encounter Location Date Provider Diagnosis [address] [place] [address] 03/17/2023 Vanessa Durbin Plan Of Treatment No Information Progress Notes * JOHNATHAN BARKER RDOB:[birth year] (89 yo M)Acc No.[id number]:03/17/2023 Behavioral Health Patient: JOHNATHAN TOSCANO Provider: Edilson Nichole :1935 A ge:87 Y S ex:Male Date:03/17/2023 [address] [id number] Pcp:PHYSICIAN NOT IDENTIFIED ([facility] AMY(ID)) Subjective: * Chief Complaints: * 1 . EST CM 1 SOUTH D/C- PHONE CALL. * Medical History: Objective: Therapeutic Interventions: Assessment: Plan: * Images: Care Plan Details* * Electronic signature of Juanita Durbin on 09/08/2024 at 01:41 PM EDT Sign off status: Pending * Provider: Edilson Nichole Date: 1 05/18/2022 Generated for Printi ng/Faxing/eTransmitting on: 0 09/08/2024 01:41 PM EDT
[2024-09-08] VITALS (22 sets, daily range): BP systolic 68–109; BP diastolic 42–56; PULSE 65–95; TEMP 35.7; O2SAT 95–99; BMI 25.8
--- OUTSIDE RECORDS SUMMARY | 2024-09-08 13:40 | XMS_ITS | Encounter Summary ---
Author Organization [facility] Address [address] [place] [address] Care Team Providers Care Cigar Machine Feeder Name Role Phone Clive Rodríguez DO Primary Care Provider [phone] Encounter Details Date Type Department Care Team (Late st Contact Info) Description 08/29/2024 Telephone [facility] [address] [facility] [phone] Albertina Altman MA Social History Tobacco Use [...] 24 to 48 hours. Email quote to [email or web address] documented in this encounter Plan of Treatment Not on file documented as of this encounter Visit Diagnoses Not on filedocumented in this encounter Care Teams Cigar Machine Feeder Relationship Specialty Start Date End Date Clive Rodríguez DO PCP - General 11/09/23 documented as of this encounter
--- OUTSIDE RECORDS SUMMARY | 2024-09-08 13:40 | XMS_ITS | Clinical Summary ---
Author Organization [facility] Address [address] [place] [address] Care Team Providers Care Olericulturist Name Role Phone Clive Rodríguez DO Primary Care Provider [phone] Encounters Date Type Department Care Team Description 08/29/2024 Telephone [facility] [address] [place] [phone] Albertina Altman MA 08/16/2024 Telephone [facility] [address] [place] [address] Albertina Altman MA from Last 3 Months Social History Tobacco Use Types Packs/Day Years Used Date Smoking Tobacco: Never Assessed Sex and Gender Information Value Date Recorded Sex Assigned at Not on file Legal Sex Male 6:46 PM EDT Gender Identity Not on file Sexual Orientation Not on file Plan of Treatment Not on file Insurance [facility] MEDICARE Care Teams Olericulturist Relationship Specialty Start Date End Date Clive Rodríguez DO PCP - General 11/09/23
--- OUTSIDE RECORDS SUMMARY | 2024-09-08 13:40 | XMS_ITS | Encounter Summary ---
Author Organization [facility] Address [address] [place] [address] Phone Care Team Providers Care Director Client Name Role Phone Clive Rodríguez DO Primary Care Provider [phone] Clive Rodríguez DO Primary Care Provider [phone] Encounter Details Date Type Department Care Team (Late st Contact Info) Description 08/21/2022 Orders Only [facility] [address] [place] [address] Conversion, Onbase Social History Tobacco Use Types Packs/Day Years Used Date Smoking Tobacco: Never Assessed Sex and Gender Information Value Date Recorded Sex Assigned at Not on file Legal Sex Male 4:08 PM EST Gender Identity Not on file Sexual Orientation Not on file documented as of this encounter Plan of Treatment Scheduled Orders Name Type Priority Associated Diagnoses Orde r Schedule OUTSIDE LAB SCAN Lab Ordered: 08/21/2022 OUTSIDE LAB SCAN Lab Ordered: 08/21/2022 documented as of this encounter Visit Diagnoses Not on filedocumented in this encounter Care Teams Director Client Relationship Specialty Start Date End Date Clive Rodríguez DO PCP - General 06/29/18 02/16/24 Clive Rodríguez DO [address] [place] [address] PCP - General Family Medicine 02/17/24 documented as of this encounter
--- OUTSIDE RECORDS SUMMARY | 2024-09-08 13:41 | XMS_ITS ---
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 Past Treatment and Therapy Plans No past plan information found. Treatment Summaries Prostate cancer (HCC)* Treatment Summary and Survivorship Care Plan for Prostate Cancer Provided by: Arlin Hodge APRN.CARTON FORMING MACHINE HELPER General Information Patient Name: Vincent Greer Patient : 1935 Patient phone: Health Care Providers Primary Care Provider: Dr. Clive Rodríguez Urologic Surgeon: Dr. [place] Everett Radiation Oncologist: Dr. Shae Vazquez Other Providers: Arlin Hodge APRN.CARTON FORMING MACHINE HELPER Treatment Summary Diagnosis Cancer Type: Adenocarcinoma of the Prostate Location: Left lateral base; Left lateral mid; Left lateral apex; Left base; Left mid; Left apex; Right apex; Right lateral apex; Right lateral mid (High- grade prostatic intraepithelial neoplasia (HGPIN)) Diagnosis Date (year): April 27, 2019 Histology Subtype: Prostate Cancer Stage: IIC; Clinical stage T2c, N0, M0 Giddings Score: 4+3 = 7 PSA at Diagnosis: [...] Resources you may be interested in: [email or web address].net Music Specialist Cnmt Art Therapy PSA (Prostate Cancer Support Group) - Contact Music Specialist for dates and times. Living with Cancer Support Group - Contact Music Specialist for dates and times. Prepared by: Arlin Hodge APRN.CARTON FORMING MACHINE HELPER Delivered on: July 11, 2020 - This [...]
--- OUTSIDE RECORDS SUMMARY | 2024-09-08 13:41 | XMS_ITS | Encounter Summary ---
Author Organization [facility] Address [address] [place] [address] Phone Care Team Providers Care Dust Mop Maker Name Role Phone Clive Rodríguez DO Primary Care Provider Clive Rodríguez DO Primary Care Provider [phone] Encounter Details Date Type Department Care Team (Late st Contact Info) Description 08/11/2023 Scanned Document [facility] [address] [place] [phone] Scanning, Generic Provider Social History Tobacco Use [...] as of this encounter Plan of Treatment Not on file documented as of this encounter Visit Diagnoses Not on filedocumented in this encounter Care Teams Dust Mop Maker Relationship Specialty Start Date End Date Clive Rodríguez DO PCP - General 06/29/18 02/16/24 Clive Rodríguez DO [address] [place] [address] PCP - General Family Medicine 02/17/24 documented as of this encounter
--- OUTSIDE RECORDS SUMMARY | 2024-09-08 13:41 | XMS_ITS | Encounter Summary ---
Author Organization [facility] Address [address] [place] [address] Phone Care Team Providers Care General Production Manager Name Role Phone Clive Rodríguez DO Primary Care Provider [phone] Clive Rodríguez DO Primary Care Provider [phone] Encounter Details Date Type Department Care Team (Late st Contact Info) Description 10/30/2020 Orders Only [facility] [address] [place] [address] Conversion, Onbase Social History Tobacco Use Types [...] on filedocumented in this encounter Care Teams General Production Manager Relationship Specialty Start Date End Date Clive Rodríguez DO PCP - General 06/29/18 02/16/24 Clive Rodríguez DO [address] [place] [address] PCP - General Family Medicine 02/17/24 documented as of this encounter
--- OUTSIDE RECORDS SUMMARY | 2024-09-08 13:41 | XMS_ITS | Encounter Summary ---
Author Organization [facility] Address [address] [place] [address] Phone Care Team Providers Care Line Maintenance Technician Name Role Phone Clive Rodríguez DO Primary Care Provider [phone] Encounter Details Date Type Department Care Team ([facility] st Contact Info) Description 06/16/2024 Scanned Document [facility] [address] [place] [phone] Scanning, Generic Provider Social History Tobacco Use [...] on file documented as of this encounter Procedures Procedure [...] documented as of this encounter Care Teams Line Maintenance Technician Relationship Specialty Start Date End Date Clive Rodríguez DO [address] [place] [address] PCP - General Family Medicine 02/17/24 documented as of this encounter
--- OUTSIDE RECORDS SUMMARY | 2024-09-08 13:41 | XMS_ITS | Encounter Summary ---
Author Organization [facility] Address [address] [place] [address] Phone Care Team Providers Care Theatre Manager Name Role Phone Clive Rodríguez DO Primary Care Provider [phone] Clive Rodríguez DO Primary Care Provider [phone] Encounter Details Date Type Department Care Team (Late st Contact Info) Description 01/18/2024 Scanned Document [facility] [address] [place] [phone] Scanning, Generic Provider Social History Tobacco Use [...] documented as of this encounter Care Teams Theatre Manager Relationship Specialty Start Date End Date Clive Rodríguez DO PCP - General 06/29/18 02/16/24 Clive Rodríguez DO [facility] [place] [address] PCP - General Family Medicine 02/17/24 documented as of this encounter
--- OUTSIDE RECORDS SUMMARY | 2024-09-08 13:41 | XMS_ITS | Encounter Summary ---
Author Organization [facility] Address [address] [place] [address] Phone Care Team Providers Care Supervisor Billposting Name Role Phone Clive Rodríguez DO Primary Care Provider [phone] Clive Rodríguez DO Primary Care Provider [phone] Encounter Details Date Type Department Care Team (Late st Contact Info) Description 10/01/2020 Orders Only [facility] [address] [place] [address] Conversion, Onbase Social History Tobacco Use Types [...] on filedocumented in this encounter Care Teams Supervisor Billposting Relationship Specialty Start Date End Date Clive Rodríguez DO PCP - General 06/29/18 02/16/24 Clive Rodríguez DO [address] [place] [address] PCP - General Family Medicine 02/17/24 documented as of this encounter
--- OUTSIDE RECORDS SUMMARY | 2024-09-08 13:41 | XMS_ITS | Encounter Summary ---
Author Organization [facility] Address [address] [place] [address] Phone Care Team Providers Care Building Equipment Inspector Name Role Phone Clive Rodríguez DO Primary Care Provider [phone] Clive Rodríguez DO Primary Care Provider [phone] Encounter Details Date Type Department Care Team (Late st Contact Info) Description 03/07/2023 Scanned Document [facility] [address] [place] [phone] Scanning, Generic Provider Social History Tobacco Use [...] on filedocumented in this encounter Care Teams Building Equipment Inspector Relationship Specialty Start Date End Date Clive Rodríguez DO PCP - General 06/29/18 02/16/24 Clive Rodríguez DO [address] [place] [address] PCP - General Family Medicine 02/17/24 documented as of this encounter
--- OUTSIDE RECORDS SUMMARY | 2024-09-08 13:41 | XMS_ITS | Encounter Summary ---
Author Organization [facility] Address [address] [place] [address] Phone Care Team Providers Care Location Analyst Name Role Phone Clive Rodríguez DO Primary Care Provider [phone] Clive Rodríguez DO Primary Care Provider [phone] Encounter Details Date Type Department Care Team (Late st Contact Info) Description 11/19/2023 Scanned Document [facility] [address] [place] [phone] Scanning, Generic Provider Social History Tobacco Use [...] documented as of this encounter Care Teams Location Analyst Relationship Specialty Start Date End Date Clive Rodríguez DO PCP - General 06/29/18 02/16/24 Clive Rodríguez DO [facility] [place] [address] PCP - General Family Medicine 02/17/24 documented as of this encounter
--- OUTSIDE RECORDS SUMMARY | 2024-09-08 13:41 | XMS_ITS | Encounter Summary ---
Author Organization [facility] Address [address] [place] [address] Phone Care Team Providers Care Boilermaker Name Role Phone Clive Rodríguez DO Primary Care Provider [phone] Clive Rodríguez DO Primary Care Provider [phone] Encounter Details Date Type Department Care Team (Late st Contact Info) Description 12/10/2020 Orders Only [facility] [address] [place] [address] Conversion, Onbase Social History Tobacco Use Types [...] on filedocumented in this encounter Care Teams Boilermaker Relationship Specialty Start Date End Date Clive Rodríguez DO PCP - General 06/29/18 02/16/24 Clive Rodríguez DO [address] [place] [address] PCP - General Family Medicine 02/17/24 documented as of this encounter
--- OUTSIDE RECORDS SUMMARY | 2024-09-08 13:41 | XMS_ITS | Encounter Summary ---
Author Organization [facility] Address [address] [place] [address] Phone Care Team Providers Care Ripening Room Operator Name Role Phone Clive Rodríguez DO Primary Care Provider Encounter Details Date Type Department Care Team (Late st Contact Info) Description 03/29/[address] [facility] [address] [place] [phone] Scanning, Generic Provider Social History Tobacco Use [...] documented as of this encounter Care Teams Ripening Room Operator Relationship Specialty Start Date End Date Clive Rodríguez DO [address] [place] [address] PCP - General Family Medicine 02/17/24 documented as of this encounter
--- OUTSIDE RECORDS SUMMARY | 2024-09-08 13:41 | XMS_ITS | Clinical Summary ---
Author Organization [facility] Address [address] [place] [address] Care Team Providers Care Wire Coater Name Role Phone Clive Rodríguez DO Primary Care Provider [phone] Allergies No known active allergies Medications glimepiride [...] is lower risk 6 01/05/2024 Data from: https://www.neighborhoodatlas.medicine.[facility]/. Last address used for calculation [address] [...] METABOLIC PANEL (07/04/2020 8:55 AM EDT) Pathologist [facility] Protein, Total 6.6 6.3 - 8.0 g/dL 07/05/2020 11:28 AM EDT [facility] Albumin 3.9 3.9 - 4.9 g/dL 07/05/2020 11:28 AM EDT [facility] Calcium 9.2 8.5 - 10.2 mg/dL 07/05/2020 11:28 AM EDT [facility] Bilirubin, Total 0.3 0.2 - 1.3 mg/dL 07/05/2020 11:28 AM T [facility] Alkaline Phosphatase 121(H) 38 - 113 U/L 07/05/2020 11:28 AM EDT [facility] AST 37 14 - 40 U/L 07/05/2020 11:28 AM EDT [facility] Glucose 172(H) 74 - 99 mg/dL 07/05/2020 11:28 AM [facility] Comment: The [place] Diabetes Association (ADA) provides guidance for cutoff [...] Standards of Medical Care in Diabetes 2016, [place] Diabetes Association. Diabetes Care. 2016.39(Suppl 1). BUN 14 9 - 24 mg/dL 07/05/2020 11:28 AM EDT [facility] Creatinine 1.12 0.73 - 1.22 mg/dL 07/05/2020 11:28 AM EDT [facility] Sodium 141 136 - 144 mmol/L 07/05/2020 11:28 AM EDT [facility] Potassium 4.4 3.7 - 5.1 mmol/L 07/05/2020 11:28 AM EDT [facility] Chloride 107(H) 97 - 105 mmol/L 07/05/2020 11:28 AM EDT [facility] CO2 26 22 - 30 mmol/L 07/05/2020 11:28 AM EDT [facility] Anion Gap 8(L) 9 - 18 mmol/L 07/05/2020 11:28 AM T [facility] ALT 31 10 - 54 U/L 07/05/2020 11:28 AM [facility] eGFR- >60 07/05/2020 11:28 AM T [facility] eGFR-All Other Races >60 . 07/05/2020 11:28 AM T [facility] Comment: eGFR (Estimated GFR) Units of measure: [...] us Clive Rodríguez DO LABORATORY Final Result [facility] [address] [place] [address] [facility] [address] [place] [address] from Last 3 Months or Most Recently Relevant to Health Maintenance Insurance MEDICARE BLUE CARD PPO OOS Care Teams Wire Coater Relationship Specialty Start Date End Date Clive Rodríguez DO [address] [place] [address] PCP - General Family Medicine 10/04/19
--- OUTSIDE RECORDS SUMMARY | 2024-09-08 13:41 | XMS_ITS | Encounter Summary ---
Author Organization [facility] Address [address] [place] [address] Phone Care Team Providers Care Nurse Administrator Name Role Phone Clive Rodríguez DO Primary Care Provider Clive Rodríguez DO Primary Care Provider [phone] Encounter Details Date Type Department Care Team (Late st Contact Info) Description 01/06/2024 Scanned Document [facility] [address] [place] [phone] Scanning, Generic Provider Social History Tobacco Use [...] documented as of this encounter Care Teams Nurse Administrator Relationship Specialty Start Date End Date Clive Rodríguez DO PCP - General 06/29/18 02/16/24 Clive Rodríguez DO [facility] [place] [address] PCP - General Family Medicine 02/17/24 documented as of this encounter
--- OUTSIDE RECORDS SUMMARY | 2024-09-08 13:41 | XMS_ITS | Encounter Summary ---
Author Organization [facility] Address [address] [place] [address] Phone Care Team Providers Care Concrete Rod Buster Name Role Phone Clive Rodríguez DO Primary Care Provider [phone] Encounter Details Date Type Department Care Team ([facility] st Contact Info) Description 06/08/2024 Scanned Document [facility] [address] [place] [phone] Scanning, Generic Provider Social History Tobacco Use [...] documented as of this encounter Care Teams Concrete Rod Buster Relationship Specialty Start Date End Date Clive Rodríguez DO [address] [place] [address] PCP - General Family Medicine 02/17/24 documented as of this encounter
--- OUTSIDE RECORDS SUMMARY | 2024-09-08 13:41 | XMS_ITS | Encounter Summary ---
Author Organization [facility] Address [address] [place] [address] Phone Care Team Providers Care Book Shelver Name Role Phone Clive Rodríguez DO Primary Care Provider [phone] Clive Rodríguez DO Primary Care Provider [phone] Encounter Details Date Type Department Care Team (Late st Contact Info) Description 1935 Scanned Document [facility] [address] [place] [phone] Scanning, Generic Provider Social History Tobacco Use [...] on filedocumented in this encounter Care Teams Book Shelver Relationship Specialty Start Date End Date Clive Rodríguez DO PCP - General 06/29/18 02/16/24 Clive Rodríguez DO [address] [place] [address] PCP - General Family Medicine 02/17/24 documented as of this encounter
--- OUTSIDE RECORDS SUMMARY | 2024-09-08 13:41 | XMS_ITS | Encounter Summary ---
Author Organization [facility] Address [address] [place] [address] Phone Care Team Providers Care Hand Woven Carpet And Rug Mender Name Role Phone Clive Rodríguez DO Primary Care Provider [phone] Clive Rodríguez DO Primary Care Provider [phone] Encounter Details Date Type Department Care Team (Late st Contact Info) Description 08/09/2020 Orders Only [facility] [address] [place] [address] Conversion, Onbase Social History Tobacco Use Types [...] on filedocumented in this encounter Care Teams Hand Woven Carpet And Rug Mender Relationship Specialty Start Date End Date Clive Rodríguez DO PCP - General 06/29/18 02/16/24 Clive Rodríguez DO [address] [place] [address] PCP - General Family Medicine 02/17/24 documented as of this encounter
--- OUTSIDE RECORDS SUMMARY | 2024-09-08 13:41 | XMS_ITS | Encounter Summary ---
Author Organization [facility] Address [address] [place] [address] Phone Care Team Providers Care Unpaid Intern Name Role Phone Clive Rodríguez DO Primary Care Provider [phone] Clive Rodríguez DO Primary Care Provider [phone] Encounter Details Date Type Department Care Team (Late st Contact Info) Description 1935 Orders Only [facility] [address] [place] [phone] Scanning, Generic Provider Social History Tobacco Use [...] on filedocumented in this encounter Care Teams Unpaid Intern Relationship Specialty Start Date End Date Clive Rodríguez DO PCP - General 06/29/18 02/16/24 Clive Rodríguez DO [address] [place] [address] PCP - General Family Medicine 02/17/24 documented as of this encounter
--- OUTSIDE RECORDS SUMMARY | 2024-09-08 13:41 | XMS_ITS | Encounter Summary ---
Author Organization [facility] Address [address] [place] [address] Phone Care Team Providers Care Activities Leader Name Role Phone Clive Rodríguez DO Primary Care Provider [phone] Clive Rodríguez DO Primary Care Provider [phone] Encounter Details Date Type Department Care Team (Late st Contact Info) Description 08/23/2020 Orders Only [facility] [address] [place] [address] Conversion, Onbase Social History Tobacco Use Types [...] on filedocumented in this encounter Care Teams Activities Leader Relationship Specialty Start Date End Date Clive Rodríguez DO PCP - General 06/29/18 02/16/24 Clive Rodríguez DO [address] [place] [address] PCP - General Family Medicine 02/17/24 documented as of this encounter
--- OUTSIDE RECORDS SUMMARY | 2024-09-08 13:41 | XMS_ITS | Encounter Summary ---
Author Organization [facility] Address [address] [place] [address] Phone Care Team Providers Care Optical Glass Wet Inspector Name Role Phone Clive Rodríguez DO Primary Care Provider [phone] Encounter Details Date Type Department Care Team (Late st Contact Info) Description 04/05/2024 Scanned Document [facility] [address] [place] [phone] Scanning, Generic Provider Social History Tobacco Use [...] documented as of this encounter Care Teams Optical Glass Wet Inspector Relationship Specialty Start Date End Date Clive Rodríguez DO [address] [place] [address] PCP - General Family Medicine 02/17/24 documented as of this encounter
--- OUTSIDE RECORDS SUMMARY | 2024-09-08 13:41 | XMS_ITS | Encounter Summary ---
Author Organization [facility] Address [address] [place] [address] Phone Care Team Providers Care Health Worker Name Role Phone Clive Rodríguez DO Primary Care Provider [phone] Clive Rodríguez DO Primary Care Provider [phone] Encounter Details Date Type Department Care Team (Late st Contact Info) Description 12/19/2019 Orders Only [facility] [address] [place] [address] Conversion, Onbase Social History Tobacco Use Types [...] on filedocumented in this encounter Care Teams Health Worker Relationship Specialty Start Date End Date Clive Rodríguez DO PCP - General 06/29/18 02/16/24 Clive Rodríguez DO [address] [place] [address] PCP - General Family Medicine 02/17/24 documented as of this encounter
--- OUTSIDE RECORDS SUMMARY | 2024-09-08 13:41 | XMS_ITS | Encounter Summary ---
Author Organization [facility] Address [address] [place] [address] Phone Care Team Providers Care Bottle Sorter Name Role Phone Clive Rodríguez DO Primary Care Provider [phone] Clive Rodríguez DO Primary Care Provider [phone] Encounter Details Date Type Department Care Team (Late st Contact Info) Description 12/16/2023 Scanned Document [facility] [address] [place] [phone] Scanning, Generic Provider Social History Tobacco Use [...] documented as of this encounter Care Teams Bottle Sorter Relationship Specialty Start Date End Date Clive Rodríguez DO PCP - General 06/29/18 02/16/24 Clive Rodríguez DO [facility] [place] [address] PCP - General Family Medicine 02/17/24 documented as of this encounter
--- OUTSIDE RECORDS SUMMARY | 2024-09-08 13:41 | XMS_ITS | Encounter Summary ---
Author Organization [facility] Address [address] [place] [address] Phone Care Team Providers Care Marklogic Developer Name Role Phone Clive Rodríguez DO Primary Care Provider [phone] Encounter Details Date Type Department Care Team (Late st Contact Info) Description 04/12/2024 Scanned Document [facility] [address] [place] [phone] Scanning, Generic Provider Social History Tobacco Use [...] documented as of this encounter Care Teams Marklogic Developer Relationship Specialty Start Date End Date Clive Rodríguez DO [address] [place] [address] PCP - General Family Medicine 02/17/24 documented as of this encounter
--- OUTSIDE RECORDS SUMMARY | 2024-09-08 13:41 | XMS_ITS | Encounter Summary ---
Author Organization [facility] Address [address] [place] [address] Phone Care Team Providers Care Credit And Loan Collections Supervisor Name Role Phone Clive Rodríguez DO Primary Care Provider [phone] Encounter Details Date Type Department Care Team (Late st Contact Info) Description 04/26/2024 Scanned Document [facility] [address] [place] [phone] Scanning, Generic Provider Social History Tobacco Use [...] documented as of this encounter Care Teams Credit And Loan Collections Supervisor Relationship Specialty Start Date End Date Clive Rodríguez DO [address] [place] [address] PCP - General Family Medicine 02/17/24 documented as of this encounter
--- OUTSIDE RECORDS SUMMARY | 2024-09-08 13:42 | XMS_ITS | Encounter Summary ---
Author Organization [facility] Address [address] [place] [address] Phone Care Team Providers Care Print Shop Chief Clerk Name Role Phone Clive Rodríguez DO Primary Care Provider [phone] Clive Rodríguez DO Primary Care Provider [phone] Encounter Details Date Type Department Care Team (Late st Contact Info) Description 07/31/2020 Orders Only [facility] [address] [place] [address] Conversion, Onbase Social History Tobacco Use Types [...] on filedocumented in this encounter Care Teams Print Shop Chief Clerk Relationship Specialty Start Date End Date Clive Rodríguez DO PCP - General 06/29/18 02/16/24 Clive Rodríguez DO [address] [place] [address] PCP - General Family Medicine 02/17/24 documented as of this encounter
--- OUTSIDE RECORDS SUMMARY | 2024-09-08 13:42 | XMS_ITS | Encounter Summary ---
Author Organization [facility] Address [address] [place] [address] Phone Care Team Providers Care Flight Instructor Name Role Phone Clive Rodríguez DO Primary Care Provider [phone] Encounter Details Date Type Department Care Team ([facility] st Contact Info) Description 07/12/2024 Scanned Document [facility] [address] [place] [phone] Scanning, Generic Provider Social History Tobacco Use [...] documented as of this encounter Care Teams Flight Instructor Relationship Specialty Start Date End Date Clive Rodríguez DO [address] [place] [address] PCP - General Family Medicine 02/17/24 documented as of this encounter
--- OUTSIDE RECORDS SUMMARY | 2024-09-08 13:42 | XMS_ITS | Clinical Summary ---
Author Organization [facility] Address [address] [place] [address] Care Team Providers Care Resizer Operator Name Role Phone Unavailable Primary Care Provider [...] drink = 0.6 oz pur e alcohol) [facility] Utilities Answer Date Recorded In the past 12 months has th e [employer], gas, oil, or water What's Hot threatened to shut off services in your [...] place to sleep or slept in a halfway (including now)? No 07/07/2023 Food Insecurity Answer [...] ID:Not on file Type:Not on file Address: [address] Advance Directives Documents on File Type Date Recorded Patient [place] Expl anation ACP-Advance Directive 07/13/2023 12:38 PM * Full Code (Latest Code Status on File) Date Activated Date Inactivated Comments 07/07/2023 10:40 PM 07/10/2023 8:37 PM Healthcare Agents on File Name Relationship [facility] Renettatimi Jones Child Primary Decision Maker Bladimir Percy Child Secondary Decision Maker
--- OUTSIDE RECORDS SUMMARY | 2024-09-08 13:42 | XMS_ITS | Clinical Summary ---
Author Organization [facility] Address [address] [place] [address] Phone Care Team Providers Care Brand Advisor Name Role Phone IsraelClive marie Miguel DO Primary Care Provider [phone] Allergies No known active allergies Medications aspirin [...] mouth see administration instructions. As directed per [facility] coumadin clinic 60 tablet 02/26/20 23 Active calcium carbonate (CALCIUM 500 ORAL) Take 1 tablet by mouth early in the morning.. Active atorvastatin (Lipitor) 20 mg tabletIndications: Mixed hyperlipidemia Take 1 tablet (20 mg) by mouth once daily at bedtime. 90 tablet 3 08/31/19 24 Active lisinopril 2.5 mg tabletIndications: Atherosclerosis of [place] coronary artery of [place] heart without angina pectoris,S/P CABG (coronary artery bypass graft),Status post angioplasty Take 1 tablet (2.5 mg) by mouth once daily. 90 tablet 3 08/31/19 24 Active Active Problems Problem Noted Date Diagnosed Date BMI 24.0-24.9, adult 08/31/2023 Never smoked tobacco 08/31/2023 High risk medication use 05/25/2023 Atherosclerosis of coronary artery of [place] heart without angina pectoris 02/10/2023 Diabetes mellitus (Multi) 02/10/2023 Difficulty breathing 02/10/2023 Duodenal ulcer 02/10/2023 Erosive gastritis 02/10/2023 Hernia, hiatal 02/10/2023 History of myocardial infarction 02/10/2023 Hyperlipidemia 02/10/2023 Paroxysmal atrial fibrillation (Multi) S/P aortic valve replacement 02/10/2023 S/P CABG (coronary artery bypass graft) 02/11/20 Status post angioplasty 02/10/2023 Encounters Date Type Department Care Team Description 07/15/2024 Scanned Document [facility] [address] [place] [address] Scanning, Generic Provider 07/12/2024 Scanned Document [facility] [address] [place] [address] Scanning, Generic Provider 06/28/2024 Scanned Document [facility] [address] [place] [address] Scanning, Generic Provider 06/21/2024 Scanned Document [facility] [address] [place] [address] Scanning, Generic Provider 06/16/2024 Scanned Document [facility] [address] [place] [address] Scanning, Generic Provider 06/08/2024 Scanned Document [facility] [address] [place] [address] Scanning, Generic Provider from Last 3 Months [...] 08/31/2023 8:32 AM EDT Plan of Treatment Health Maintenance [...] 07/07/2023, 06/21, 06/29/2023 Echocardiogram 07/07/2024 07/08/2023, 07/08/2023 Lipid Panel 08/03/2025 08/03/2024 DTaP/Tdap/Td Vaccines (3 - Td or Tdap) 05/06/2034 05/06/2024, 01/02/2019, 01/02/2019 Influenza Vaccine Completed 02/14/2024, , 01/11/2020, Additional history exists HIB Vaccines Aged Out No longer eligi [...] Narrative 07/12/2024 Ordered by an unspecified provider. Generic Provider Scanning OUTSIDE SCAN Final Result * OUTSIDE LAB SCAN (06/28/2024) Only the most recent of4 resultswithin the time period is included. Narrative 06/28/2024 Ordered by an unspecified provider. us Generic Provider Scanning OUTSIDE SCAN Final Result from Last 3 Months Insurance MEDICARE PART A AND B [facility] Care Teams Brand Advisor Relationship Specialty Start Date End Date Clive Rodríguez DO [address] [place] [address] PCP - General Family Medicine 02/17/24
--- OUTSIDE RECORDS SUMMARY | 2024-09-08 13:42 | XMS_ITS | Clinical Summary ---
Author Organization [facility] Address [address] [place] [address] Care Team Providers Care Frame Operator Name Role Phone Anne Clive Primary Care Provider [phone] Allergies No known active allergies Medications ARIPiprazole (Abilify) 2 mg tablet Take 2 mg by mouth two times daily. Active donepezil (Aricept) 5 mg tablet Take 5 mg by mouth at bedtime. Active finasteride (Proscar) 5 mg tablet Take 5 mg by mouth at bedtime. Do not crush, chew, or split. Active insulin glargine (Lantus) 100 unit/mL injection vial Inject 15 Units under the skin at bedtime. Active lisinopril 2.5 mg tablet Take 2.5 mg by mouth in the morning. Active sertraline (Zoloft) 50 mg tablet Take 50 mg by mouth at bedtime. Active tamsulosin (Flomax) 0.4 mg 24 hr capsule Take 0.4 mg by mouth at bedtime. Active traZODone (Desyrel) 50 mg tablet Take 50 mg by mouth if needed at bedtime for sleep. Active atorvastatin (Lipitor) 40 mg tabletIndication s:NSTEMI (non-ST elevated myocardial infarction) (CMS/HCC) Take 1 tablet (40 mg) by mouth at bedtime for 89 doses. 30 tablet 2 08/15/19 25 025 Active clopidogrel (Plavix) 75 mg tabletIndication s:NSTEMI (non-ST elevated myocardial infarction) (CMS/HCC) Take 1 tablet (75 mg) by mouth in the morning for 94 doses. 30 tablet 3 08/16/19 25 025 Active dapagliflozin propanediol (Farxiga) 10 mgIndications:NS DAISY (non-ST elevated myocardial infarction) (CMS/HCC) Take 1 tablet (10 mg) by mouth in the morning for 94 doses. 30 tablet 3 08/16/19 25 025 Active insulin lispro (HumaLOG) 100 unit/mL injectionIndicat ions:NSTEMI (non-ST elevated myocardial infarction) (CMS/HCC) Inject 0-10 Units under the skin with breakfast, with lunch, and with evening meal AND 0-8 Units at bedtime. 11.4 mL 08/15/19 25 026 Active warfarin (Coumadin) 5 mg tablet Take 5 mg by mouth every other day. 02/26/20 23 Active spironolactone (Aldactone) 25 mg tabletIndication s:Chronic systolic congestive heart failure (CMS/HCC) Take 0.5 tablets (12.5 mg) by mouth in the morning. 45 tablet 3 08/23/19 25 026 Active furosemide (Lasix) 20 mg tabletIndication s:Chronic systolic congestive heart failure (CMS/HCC) Take 1 tablet (20 mg) by mouth in the morning. 90 tablet 3 08/23/19 25 026 Active albuterol 0.63 mg/3 mL nebulizer solution Take 0.63 mg by nebulization every 6 (six) hours if needed for wheezing. Active atorvastatin (Lipitor) 20 mg tablet Take 20 mg by mouth at bedtime. 025 Discontin ued(Stop Taking at Discharge ) warfarin (Coumadin) 7.5 mg tablet Take 7.5 mg by mouth. 1/2 tablet (3.75mg ) on Tuesdays, full tablet (7.5mg) rest of week 025 Discontin ued(Stop Taking at Discharge ) apixaban (Eliquis) 5 mg tabletIndication s:Paroxysmal atrial fibrillation (CMS/HCC) Take 1 tablet (5 mg) by mouth two times daily. 60 tablet 08/11/19 25 025 Discontin ued(Stop Taking at Discharge ) aspirin 81 mg EC tabletIndication s:NSTEMI (non-ST elevated myocardial infarction) (CMS/HCC) Take 1 tablet (81 mg) by mouth in the morning for 94 doses. 30 tablet 3 08/16/19 25 025 Discontin ued(Thera py completed ) Active Problems Problem Noted Date Diagnosed Date Benign prostatic hyperplasia with urinary obstru ction 08/22/2024 Hematuria 08/22/2024 High prostate specific antigen (PSA) 08/22/2024 History of anticoagulant therapy 08/22/2024 Hypertension 08/22/2024 Prostatitis 08/22/2024 Shock 08/06/2024 Assessment & Plan (08/13/2024 3:47 PM EDT): Likely cardiogenic versus distributive in nature, resolved Patient required [place] catheter placement with subsequent removal later on due to combination of shock and acute on chronic heart failure with reduced EF Assessment & Plan (08/12/2024 2:55 PM EDT): Likely cardiogenic versus distributive in nature, resolved Patient required [place] catheter placement with subsequent removal later on due to combination of shock and acute on chronic heart failure with reduced EF Assessment & Plan (08/11/2024 2:19 PM EDT): Likely cardiogenic versus distributive in nature, resolved Patient required [place] catheter placement with subsequent removal later on due to combination of shock and acute on chronic heart failure with reduced EF Assessment & Plan (08/10/2024 12:35 PM EDT): Likely cardiogenic versus distributive in nature, resolved Patient required [place] catheter placement with subsequent removal later on due to combination of shock and acute on chronic heart failure with reduced EF Assessment & Plan (08/09/2024 1:46 PM EDT): Likely cardiogenic versus distributive in nature, resolved Patient required [place] catheter placement with subsequent removal later on due to combination of shock and acute on chronic heart failure with reduced EF Assessment & Plan (08/08/2024 8:27 AM EDT): Likely cardiogenic versus distributive in nature, resolved Patient required [place] catheter placement with subsequent removal later on due to combination of shock and acute on chronic heart failure with reduced EF Assessment & Plan (08/07/2024 11:30 AM EDT): Likely cardiogenic versus distributive in nature, resolved Patient required [place] catheter placement with subsequent removal later on due to combination of shock and acute on chronic heart failure with reduced EF Assessment & Plan (08/06/2024 11:18 AM EDT): Likely cardiogenic versus distributive in nature, resolved Patient required [place] catheter placement with subsequent removal later on due to combination of shock and acute on chronic heart failure with reduced EF Acute systolic congestive heart failure 08/07/19 25 Assessment & Plan (08/13/2024 3:50 PM EDT): Echo 5/14 showed EF 25/30% with wall motion abnormality and grade 3 diastolic function X-ray suggestive of bilateral lower lobe airspace disease and moderate right- sided pleural Will hold Lasix for now due to worsening kidney function again of 1.54 creatinine Continue Farxiga Appreciate cardiology input Assessment & Plan (08/12/2024 2:55 PM EDT): Echo 5/14 showed EF 25/30% with wall motion abnormality and grade 3 diastolic function X-ray suggestive of bilateral lower lobe airspace disease and moderate right- sided pleural KATHRYN has improved, restart lisinopril Appreciate cardiology input Assessment & Plan (08/11/2024 2:19 PM EDT): Echo 5/14 showed EF 25/30% with wall motion abnormality and grade 3 diastolic function X-ray suggestive of bilateral lower lobe airspace disease and moderate right- sided pleural KATHRYN has improved, restart lisinopril Appreciate cardiology input Assessment & Plan (08/10/2024 12:35 PM EDT): Echo 5/14 showed EF 25/30% with wall motion abnormality and grade 3 diastolic function X-ray suggestive of bilateral lower lobe airspace disease and moderate right- sided pleural KATHRYN has improved, restart lisinopril Appreciate cardiology input Assessment & Plan (08/09/2024 1:46 PM EDT): Echo 5/14 showed EF 25/30% with wall motion abnormality and grade 3 diastolic function X-ray suggestive of bilateral lower lobe airspace disease and moderate right- sided pleural KATHRYN has improved, restart lisinopril Appreciate cardiology input Assessment & Plan (08/08/2024 3:27 PM EDT): Echo 5/14 showed EF 25/30% with wall motion abnormality and grade 3 diastolic function X-ray suggestive of bilateral lower lobe airspace disease and moderate right- sided pleural KATHRYN has improved, restart lisinopril Appreciate cardiology input Assessment & Plan (08/07/2024 11:30 AM EDT): Echo 5/14 showed EF 25/30% with wall motion abnormality and grade 3 diastolic function X-ray suggestive of bilateral lower lobe airspace disease and moderate right- sided pleural Lisinopril on hold for KATHRYN Appreciate cardiology input Assessment & Plan (08/06/2024 11:18 AM EDT): Echo 5/14 showed EF 25/30% with wall motion abnormality and grade 3 diastolic function X-ray suggestive of bilateral lower lobe airspace disease and moderate right- sided pleural Lisinopril on hold for KATHRYN Appreciate cardiology input Acute blood loss anemia 08/06/2024 Assessment & Plan (08/13/2024 3:47 PM EDT): Patient status post 1 unit of packed RBC and patient received another 2 units 08/12/2024 Hemoglobin today 8.7 . Continue to hold Eliquis for now Assessment & Plan (08/12/2024 2:55 PM EDT): Patient status post 1 unit of packed RBC and will receive another 2 units today Hemoglobin today down to 6.5, will hold Eliquis for now Assessment & Plan (08/11/2024 2:19 PM EDT): Patient status post 1 unit of packed RBC Hemoglobin last 7.6 Assessment & Plan (08/10/2024 12:35 PM EDT): Patient status post 1 unit of packed RBC Hemoglobin last 9.4 Assessment & Plan (08/09/2024 1:46 PM EDT): Patient status post 1 unit of packed RBC Hemoglobin last 9.4 Assessment & Plan (08/08/2024 8:27 AM EDT): Patient status post 1 unit of packed RBC Hemoglobin today 9.7, monitor Assessment & Plan (08/07/2024 11:30 AM EDT): Patient status post 1 unit of packed RBC Hemoglobin today 9.7, monitor Assessment & Plan (08/06/2024 11:18 AM EDT): Patient status post 1 unit of packed RBC Hemoglobin today 9.7, monitor KATHRYN (acute kidney injury) 08/06/2024 Assessment & Plan (08/13/2024 3:50 PM EDT): Likely prerenal, will hold Lasix and monitor kidney function closely Assessment & Plan (08/12/2024 2:55 PM EDT): creatinine last 0.86, normalized Assessment & Plan (08/11/2024 2:19 PM EDT): creatinine last 0.86 Assessment & Plan (08/10/2024 12:35 PM EDT): creatinine last 1.11 Assessment & Plan (08/09/2024 1:46 PM EDT): creatinine last 1.11 Assessment & Plan (08/08/2024 3:27 PM EDT): creatinine today 1.11 improved Assessment & Plan (08/07/2024 11:30 AM EDT): Continue to improve with normalization of creatinine of 1.12 Assessment & Plan (08/06/2024 11:18 AM EDT): Continue to improve with normalization of creatinine of 1.12 Dementia 08/06/2024 Assessment & Plan (08/13/2024 3:47 PM EDT): Continue Abilify and add scheduled small dose Seroquel at nighttime Assessment & Plan (08/12/2024 2:55 PM EDT): Continue Abilify and add scheduled small dose Seroquel at nighttime Assessment & Plan (08/11/2024 2:19 PM EDT): Continue Abilify and add scheduled small dose Seroquel at nighttime Assessment & Plan (08/10/2024 12:35 PM EDT): Patient slightly agitated, start small dose Zyprexa IM Assessment & Plan (08/09/2024 1:46 PM EDT): Patient slightly agitated, start small dose Zyprexa IM Assessment & Plan (08/08/2024 8:27 AM EDT): Patient slightly agitated, start small dose Zyprexa IM Assessment & Plan (08/07/2024 11:30 AM EDT): Patient slightly agitated, start small dose Zyprexa IM Assessment & Plan (08/06/2024 11:18 AM EDT): Patient slightly agitated, start small dose Zyprexa IM Status post transcatheter aortic valve replaceme nt 08/06/2024 Shortness of breath 08/03/2024 Assessment & Plan (08/08/2024 3:27 PM EDT): due to fluid overloaded state with chest x-ray 08/06 showing increased vascular congestion and bilateral pleural effusions continue supplemental oxygen as needed Assessment & Plan (08/03/2024 5:40 AM EDT): Suspect from fluid overload will give diuretics try to optimize guideline directed medical therapy for CHF serial troponin monitor electrolytes creatinine put patient on BiPAP Paroxysmal atrial fibrillation 08/03/2024 Assessment & Plan (08/13/2024 3:47 PM EDT): Will hold Eliquis for now due to acute blood loss anemia Patient not on any rate controlling medications Assessment & Plan (08/12/2024 2:55 PM EDT): Will hold Eliquis for now due to acute blood loss anemia Patient not on any rate controlling medications Assessment & Plan (08/11/2024 2:19 PM EDT): Patient at home on Coumadin and currently on heparin drip And currently not on any rate control Assessment & Plan (08/10/2024 12:35 PM EDT): Patient at home on Coumadin and currently on heparin drip And currently not on any rate control Assessment & Plan (08/09/2024 1:46 PM EDT): Patient at home on Coumadin and currently on heparin drip Assessment & Plan (08/08/2024 8:27 AM EDT): Patient at home on Coumadin and currently heparin drip on hold Assessment & Plan (08/07/2024 11:30 AM EDT): Patient at home on Coumadin and currently heparin drip on hold Assessment & Plan (08/06/2024 11:18 AM EDT): Patient at home on Coumadin and currently heparin drip on hold Assessment & Plan (08/03/2024 5:40 AM EDT): Review home meds continue heparin telemetry cardiology to follow Acute hypoxic respiratory failure 08/03/2024 Assessment & Plan (08/13/2024 3:47 PM EDT): secondary to CHF exacerbation and shock Assessment & Plan (08/12/2024 2:55 PM EDT): secondary to CHF exacerbation and shock Assessment & Plan (08/11/2024 2:19 PM EDT): secondary to CHF exacerbation and shock Assessment & Plan (08/10/2024 12:35 PM EDT): secondary to CHF exacerbation and shock Assessment & Plan (08/09/2024 1:46 PM EDT): secondary to CHF exacerbation and shock Assessment & Plan (08/08/2024 3:27 PM EDT): secondary to CHF exacerbation and shock Patient currently on 4 L nasal cannula Assessment & Plan (08/07/2024 11:30 AM EDT): Can [place] to CHF exacerbation and shock Patient currently on 3 L nasal cannula Assessment & Plan (08/06/2024 11:18 AM EDT): Can [place] to CHF exacerbation and shock Patient currently on 3 L nasal cannula Assessment & Plan (08/03/2024 5:40 AM EDT): As above NSTEMI (non-ST elevated myocardial infarction) 0 08/03/2024 Assessment & Plan (08/13/2024 3:47 PM EDT): EKG showed significant anterior T waves High since troponins the highest went up to 490 Patient has history of coronary artery disease status post CABG Cardiac cath was done 08/09: Mild disease in the left main. Occluded mid LAD with faint filling of the distal LAD by a patent BALDWIN graft. 90% in-stent restenosis in the proximal segment of the first diagonal branch reduced to 0% by scoring balloon angioplasty. 70% stenosis in the proximal LAD reduced to 30% by scoring balloon angioplasty. Nonobstructive disease in the circumflex. 85% stenosis in the mid RCA reduced to 0% by a Synergy XD drug-eluting stent. Severe elevation of left filling pressures. Moderate elevation of right filling pressures. Severe pulmonary hypertension. Reduced cardiac output and cardiac index. Controlled systemic hypertension. 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 Aspirin 81 mg daily long-term Plavix for 12-month If patient resumed Eliquis later on, aspirin might need to be dropped in 1 to 2 weeks Assessment & Plan (08/12/2024 2:55 PM EDT): EKG showed significant anterior T waves High since troponins the highest went up to 490 Patient has history of coronary artery disease status post CABG Cardiac cath was done 08/09: Mild disease in the left main. Occluded mid LAD with faint filling of the distal LAD by a patent BAL[place] graft. 90% in-stent restenosis in the proximal segment of the first diagonal branch reduced to 0% by scoring balloon angioplasty. 70% stenosis in the proximal LAD reduced to 30% by scoring balloon angioplasty. Nonobstructive disease in the circumflex. 85% stenosis in the mid RCA reduced to 0% by a Synergy XD drug-eluting stent. Severe elevation of left filling pressures. Moderate elevation of right filling pressures. Severe pulmonary hypertension. Reduced cardiac output and cardiac index. Controlled systemic hypertension. 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 Aspirin 81 mg daily long-term Plavix for 12-month If patient resumed Eliquis later on, aspirin might need to be dropped in 1 to 2 weeks Assessment & Plan (08/11/2024 2:19 PM EDT): EKG showed significant anterior T waves High since troponins the highest went up to 490 Patient has history of coronary artery disease status post CABG Cardiac cath was done 08/09: Mild disease in the left main. Occluded mid LAD with faint filling of the distal LAD by a patent BALDWIN graft. 90% in-stent restenosis in the proximal segment of the first diagonal branch reduced to 0% by scoring balloon angioplasty. 70% stenosis in the proximal LAD reduced to 30% by scoring balloon angioplasty. Nonobstructive disease in the circumflex. 85% stenosis in the mid RCA reduced to 0% by a Synergy XD drug-eluting stent. Severe elevation of left filling pressures. Moderate elevation of right filling pressures. Severe pulmonary hypertension. Reduced cardiac output and cardiac index. Controlled systemic hypertension. 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 Aspirin 81 mg daily long-term Plavix for 12-month and since patient cannot be on Coumadin as well, aspirin can be dropped in 1 to 2 weeks Assessment & Plan (08/10/2024 12:35 PM EDT): EKG showed significant anterior T waves High since troponins the highest went up to 490 Patient has history of coronary artery disease status post CABG Cardiac cath was done 08/09: Mild disease in the left main. Occluded mid LAD with faint filling of the distal LAD by a patent BALDWIN graft. 90% in-stent restenosis in the proximal segment of the first diagonal branch reduced to 0% by scoring balloon angioplasty. 70% stenosis in the proximal LAD reduced to 30% by scoring balloon angioplasty. Nonobstructive disease in the circumflex. 85% stenosis in the mid RCA reduced to 0% by a Synergy XD drug-eluting stent. Severe elevation of left filling pressures. Moderate elevation of right filling pressures. Severe pulmonary hypertension. Reduced cardiac output and cardiac index. Controlled systemic hypertension. 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 Aspirin 81 mg daily long-term Plavix for 12-month and since patient cannot be on Coumadin as well, aspirin can be dropped in 1 to 2 weeks Assessment & Plan (08/09/2024 1:46 PM EDT): EKG showed significant anterior T waves High since troponins the highest went up to 490 Patient has history of coronary artery disease status post CABG Plan for MILAN and left heart cath today Assessment & Plan (08/08/2024 3:27 PM EDT): EKG showed significant anterior T waves High since troponins the highest went up to 490 Patient has history of coronary artery disease status post CABG Plan for [place] and left heart cath today Continue Lipitor for now and heparin drip on hold Assessment & Plan (08/07/2024 11:30 AM EDT): EKG showed significant anterior T waves High since troponins the highest went up to 490 Patient has history of coronary artery disease status post CABG Plan for [place] and left heart cath tomorrow Continue Lipitor for now and heparin drip on hold Assessment & Plan (08/06/2024 11:18 AM EDT): EKG showed significant anterior T waves High since troponins the highest went up to 490 Patient has history of coronary artery disease status post CABG Plan for [place]AN and left heart cath Continue Lipitor for now and heparin drip on hold Assessment & Plan (08/03/2024 5:40 AM EDT): Serial troponin telemetry statin aspirin once stable and off BiPAP cardiology to follow Diabetes 08/03/2024 Assessment & Plan (08/13/2024 3:47 PM EDT): Continue sliding scale insulin coverage Assessment & Plan (08/12/2024 2:55 PM EDT): Continue sliding scale insulin coverage Assessment & Plan (08/11/2024 2:19 PM EDT): Continue sliding scale insulin coverage Assessment & Plan (08/10/2024 12:35 PM EDT): Continue sliding scale insulin coverage Assessment & Plan (08/09/2024 1:46 PM EDT): Sliding scale insulin if needed for now Assessment & Plan (08/08/2024 8:27 AM EDT): Likely scale insulin if needed for now Assessment & Plan (08/07/2024 11:30 AM EDT): Likely scale insulin if needed for now Assessment & Plan (08/06/2024 11:18 AM EDT): Likely scale insulin if needed for now Assessment & Plan (08/03/2024 5:40 AM EDT): Check A1c insulin blood sugar check diet Congestive heart failure (CHF) 08/03/2024 Assessment & Plan (08/08/2024 8:27 AM EDT): Decongestive regimen echocardiogram to assess the ventricular function diet or CHF measures Assessment & Plan (08/03/2024 5:40 AM EDT): Decongestive regimen echocardiogram to assess the ventricular function diet or CHF measures Peptic ulcer disease 08/03/2024 Assessment & Plan (08/13/2024 3:47 PM EDT): IV Protonix serial hemoglobin hematocrit Assessment & Plan (08/12/2024 2:55 PM EDT): IV Protonix serial hemoglobin hematocrit Assessment & Plan (08/11/2024 2:19 PM EDT): IV Protonix serial hemoglobin hematocrit Assessment & Plan (08/10/2024 12:35 PM EDT): IV Protonix serial hemoglobin hematocrit Assessment & Plan (08/09/2024 1:46 PM EDT): IV Protonix serial hemoglobin hematocrit Assessment & Plan (08/08/2024 8:27 AM EDT): IV Protonix serial hemoglobin hematocrit History of prosthetic valve obtain records and follow Assessment & Plan (08/07/2024 11:30 AM EDT): IV Protonix serial hemoglobin hematocrit History of prosthetic valve obtain records and follow Assessment & Plan (08/06/2024 11:18 AM EDT): IV Protonix serial hemoglobin hematocrit History of prosthetic valve obtain records and follow Assessment & Plan (08/03/2024 5:40 AM EDT): IV Protonix serial hemoglobin hematocrit History of prosthetic valve obtain records and follow BMI 24.0-24.9, adult 08/31/2023 Never smoked tobacco 08/31/2023 Altered mental status 07/09/2023 Cellulitis of left leg 07/09/2023 Venous stasis ulcer of left lower extremity 06/21 History of dementia 07/08/2023 Palliative care encounter 07/08/2023 Other specified counseling 07/08/2023 Sepsis 07/07/2023 High risk medication use 05/25/2023 Atherosclerosis of coronary artery of [place] heart without angina pectoris 02/10/2023 Erosive gastritis 02/10/2023 Hernia, hiatal 02/10/2023 History of myocardial infarction 02/10/2023 Hyperlipidemia 02/10/2023 Status post angioplasty 02/10/2023 Prostate cancer 07/11/2020 Hearing loss 04/17/2004 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 Encounters Date Type Department Care Team Description 08/22/2024 1:00 PM EDT Follow-Up [address] [id number] Ciro Chappell MD Nonrheumatic aortic valve stenosis (Primary Dx); Chronic systolic congestive heart failure (CMS/HCC); Longstanding persistent atrial fibrillation (CMS/HCC); S/P aortic valve replacement with bioprosthetic valve; Status post insertion of drug eluting coronary artery stent; Coronary artery disease involving [place] coronary artery of [place] heart without angina pectoris; History of coronary artery bypass surgery 08/22/2024 Orders Only [address] [id number] ProviderArely MD 08/19/2024 Orders Only [address] [id number] ProviderArely MD 08/09/2024 2:58 PM EDT - 08/09/2024 4:13 PM EDT Surgery [facility] [address] [place] [address] Ciro Chappell MD Coronary angiography 08/03/2024 4:44 AM EDT - 08/14/2024 2:35 PM EDT Hospital Encounter [facility] [address] [place] [address] Ezra Yi MD Chang, MD Thong Okeefe Shahnaz, MD Saad, Hani, MD Spencer, Caleb T, MD NSTEMI (non-ST elevated myocardial infarction) (CMS/HCC) (Primary Dx); Acute on chronic systolic congestive heart failure (CMS/HCC); Paroxysmal atrial fibrillation (CMS/HCC) [facility]charge [facility] 08/03/2024 Travel from Last 3 Months Family History Relation Name Status Comments Father Mother Social History Tobacco Use Types Packs/Day Years Used Date Smoking Tobacco: Never Smokeless Tobacco: Never Tobacco Cessation:Counseling Given: Not Answered Alcohol Use Standard Drinks/Week Comments Not Currently 0 (1 standard drink = 0.6 oz pur e alcohol) [facility] Utilities Answer Date Recorded In the past 12 months has th e [place], gas, oil, or water [employer] threatened to shut off services in your home? No 08/03/2024 Humiliation, Afraid, Rape, and Kick questionnair e Answer Date Recorded Within the last year, have y ou been afraid of your partner or ex-partner? No 08/03/2024 Emotionally Abused Not on file 08/03/2024 Physically Abused Not on file 08/03/2024 Sexually Abused Not on file 08/03/2024 Overall Financial Resource Strain (CARDIA) Answe r Date Recorded How hard is it for you to pa y for the very basics like food, housing, medical care, and heating? Not hard at all 08/03/2024 Transportation Answer Date Recorded In the past 12 months, has l ack of transportation kept you from medical appointments or from getting medications? No 08/03/2024 Lack of Transportation (Non-Medical) Not on file 08/03/2024 Housing Stability Vital Sign Answer [place] e Recorded In the last 12 months, was t here a time when you were not able to pay the mortgage or rent on time? No 08/03/2024 Number of Times Moved in the Last Year Not on fi le 08/03/2024 At any time in the past 12 m [facility], were you homeless or living in a snf (including now)? No 08/03/2024 Hunger Vital Sign Answer Date Recorded Within the past 12 months, y ou worried that your food would run out before you got the money to buy more. Never true 08/04/19 25 Ran Out of Food in the Last Year Not on file 08/03/2024 Sex and Gender Information Value Date Recorded Sex Assigned at Male 08/03/2024 6:04 AM EDT Legal Sex Male 10:51 PM EDT Gender Identity Male 08/03/2024 6:04 AM EDT Sexual Orientation Heterosexual or Straight 07/21 6:04 AM EDT Last Filed Vital Signs Vital Sign Reading Time Taken Comments Blood Pressure 102/60 08/22/2024 1:06 PM EDT Pulse 71 08/22/2024 1:06 PM EDT Temperature 36.4 C (97.5 F) 08/14/2024 12:00 PM EDT Respiratory Rate 26 08/14/2024 12:00 PM EDT Oxygen Saturation 98% 08/22/2024 1:06 PM EDT Inhaled Oxygen Concentration - - Weight 81.2 kg (179 lb) 08/22/2024 1:06 PM EDT Height 180.3 cm (5' 11 ) 08/22/2024 1:06 PM EDT Body Mass Index 24.97 08/22/2024 1:06 PM EDT Plan of Treatment Upcoming Encounters Date Type Department Care Team (Late st Contact Info) Description 10/10/2024 10:15 AM EDT Office Visit [facility] [address] [place] [address] Ciro Chappell MD [address] [facility] Jose Luis [address] [facility] [place] [address] Health Maintenance Due Date Last Done Comments Diabetes: Hemoglobin A1C 1936 Medicare Annual Wellness (AWV) 1936 Diabetes: Retinopathy Screening 1946 Depression Screening 1948 Diabetes: Urine Protein Screening 06/15/1955 Zoster Vaccines (1 of 2) 1986 10/21/2012 Pneumococcal Vaccine: 50+ Years (2 of 2 - PPSV23, PCV20, or PCV21) 03/05/2018 01/08/2018 COVID-19 Vaccine ( - season) 2023 Fall Risk Screening 08/14/2025 08/14/2024 Adult Tetanus 05/06/2034 05/06/2024, 01/02/2019 Influenza Vaccine Completed 02/14/2024, , 01/11/2020, Additional history exists HIB Vaccines Aged Out No longer eligi ble based on patient's age to complete this topic HPV Vaccines Aged Out No longer eligi ble based on patient's age to complete this topic IPV Vaccines Aged Out No longer eligi ble based on patient's age to complete this topic Meningococcal B Vaccine Aged Out No l onger eligible based on patient's age to complete this topic Meningococcal Vaccine Aged Out No jarrod shavonne eligible based on patient's age to complete this topic Rotavirus Vaccines Aged Out No longer eligible based on patient's age to complete this topic Medical Devices Implanted Type Area Catalyst Operator Device Identifier Shelf Expiration Date Model / Serial / Lot Stent,Synergy Mr 3.50 X 24 - [id number] Implanted:Qty : 1 on 08/09/2024 by Ciro Chappell MD at [facility] Drug Eluting Stent N/A: Heart [employer] [id number] 02/14/2026 [id number] / [id number] Procedures Procedure Name Priority Date/Time Associated Diagnosis Comments BASIC METABOLIC PANEL Routine 08/22/2024 1:50 PM EDT CBC Routine 08/22/2024 1:50 PM EDT COMPREHENSIVE METABOLIC PANEL Routine 08/22/2024 1:50 PM EDT POCT GLUCOSE METER UNSOLICITED RESULTS Routine 08/14/2024 11:44 AM EDT POCT GLUCOSE METER UNSOLICITED RESULTS Routine 08/14/2024 7:11 AM EDT BASIC METABOLIC PANEL Pending Discharge 08/14/2024 3:31 AM EDT PROTIME-INR Pending Discharge 08/14/2024 3:31 AM EDT CBC Pending Discharge 08/14/2024 3:31 AM EDT POCT GLUCOSE METER UNSOLICITED RESULTS Routine 08/13/2024 8:52 PM EDT POCT GLUCOSE METER UNSOLICITED RESULTS Routine 08/13/2024 4:52 PM EDT POCT GLUCOSE METER UNSOLICITED RESULTS Routine 08/13/2024 11:35 AM EDT POCT GLUCOSE METER UNSOLICITED RESULTS Routine 08/13/2024 7:08 AM EDT BASIC METABOLIC PANEL Pending Discharge 08/13/2024 3:43 AM EDT CBC Pending Discharge 08/13/2024 3:43 AM EDT PROTIME-INR Pending Discharge 08/13/2024 3:43 AM EDT POCT GLUCOSE METER UNSOLICITED RESULTS Routine 08/12/2024 8:31 PM EDT POCT GLUCOSE METER UNSOLICITED RESULTS Routine 08/12/2024 4:36 PM EDT TRANSFUSE RED BLOOD CELLS Routine 08/12/2024 4:15 PM EDT TRANSFUSE RED BLOOD CELLS Routine 08/12/2024 12:45 PM EDT POCT GLUCOSE METER UNSOLICITED RESULTS Routine 08/12/2024 11:12 AM EDT PREPARE RBC Routine 08/12/2024 8:31 AM EDT PREPARE RBC Routine 08/12/2024 8:31 AM EDT TYPE AND SCREEN Pending Discharge 08/12/2024 7:44 AM EDT POCT GLUCOSE METER UNSOLICITED RESULTS Routine 08/12/2024 7:15 AM EDT XR CHEST 1 VIEW STAT 08/12/2024 5:22 AM EDT LIGHT GREEN TOP Routine 08/12/2024 4:26 AM EDT EXTRA TUBES Routine 08/12/2024 4:26 AM EDT PROTIME-INR Pending Discharge 08/12/2024 4:26 AM EDT CBC Pending Discharge 08/12/2024 4:26 AM EDT POCT GLUCOSE METER UNSOLICITED RESULTS Routine 08/11/2024 8:09 PM EDT POCT GLUCOSE METER UNSOLICITED RESULTS Routine 08/11/2024 4:32 PM EDT POCT GLUCOSE METER UNSOLICITED RESULTS Routine 08/11/2024 11:18 AM EDT POCT GLUCOSE METER UNSOLICITED RESULTS Routine 08/11/2024 7:23 AM EDT CBC Pending Discharge 08/11/2024 5:17 AM EDT PROTIME-INR Pending Discharge 08/11/2024 5:17 AM EDT POCT GLUCOSE METER UNSOLICITED RESULTS Routine 08/10/2024 9:21 PM EDT POCT GLUCOSE METER UNSOLICITED RESULTS Routine 08/10/2024 4:13 PM EDT RED TOP Routine 08/10/2024 11:59 AM EDT EXTRA TUBES Routine 08/10/2024 11:59 AM EDT PROTIME-INR Routine 08/10/2024 11:59 AM EDT ANTI-FACTOR XA Routine 08/10/2024 11:59 AM EDT POCT GLUCOSE METER UNSOLICITED RESULTS Routine 08/10/2024 11:12 AM EDT LAVENDER TOP Routine 08/10/2024 9:26 AM EDT EXTRA TUBES Routine 08/10/2024 9:26 AM EDT BASIC METABOLIC PANEL Routine 08/10/2024 9:06 AM EDT POCT GLUCOSE METER UNSOLICITED RESULTS Routine 08/10/2024 8:03 AM EDT ANTI-FACTOR XA Routine 08/10/2024 5:41 AM EDT CBC Routine 08/10/2024 5:41 AM EDT LACTIC ACID WITH 4 HOUR REFLEX Routine 08/10/2024 5:41 AM EDT POCT GLUCOSE METER UNSOLICITED RESULTS Routine 08/09/2024 9:35 PM EDT ECG 12-LEAD Today 08/09/2024 8:49 PM EDT ANTI-FACTOR XA Routine 08/09/2024 8:13 PM EDT CORONARY BYPASS GRAFT STUDY Routine 08/09/2024 5:56 PM EDT NSTEMI (non-ST elevated myocardial infarction) (CMS/HCC) PERC CORONARY INTERVENTION Routine 08/09/2024 5:56 PM EDT NSTEMI (non-ST elevated myocardial infarction) (CMS/HCC) RIGHT HEART CATH Routine 08/09/2024 5:56 PM EDT NSTEMI (non-ST elevated myocardial infarction) (CMS/HCC) CORONARY ANGIOGRAPHY Routine 08/09/2024 5:56 PM EDT NSTEMI (non-ST elevated myocardial infarction) (CMS/HCC) POCT ACT Routine 08/09/2024 5:43 PM EDT POCT ACT Routine 08/09/2024 5:20 PM EDT POCT ACT Routine 08/09/2024 4:52 PM EDT POCT HBO2% Routine 08/09/2024 4:28 PM EDT XR CHEST 1 VIEW Routine 08/09/2024 12:57 PM EDT ECG 12-LEAD Routine 08/09/2024 12:37 PM EDT ANTI-FACTOR XA Pending Discharge 08/09/2024 11:43 AM EDT POCT GLUCOSE METER UNSOLICITED RESULTS Routine 08/09/2024 11:35 AM EDT PREPARE RBC Routine 08/09/2024 7:39 AM EDT POCT GLUCOSE METER UNSOLICITED RESULTS Routine 08/09/2024 7:12 AM EDT ANTI-FACTOR XA Pending Discharge 08/09/2024 6:24 AM EDT POCT GLUCOSE METER UNSOLICITED RESULTS Routine 08/09/2024 3:40 AM EDT ANTI-FACTOR XA Pending Discharge 08/09/2024 12:21 AM EDT LIGHT GREEN TOP Routine 08/08/2024 4:45 AM EDT EXTRA TUBES Routine 08/08/2024 4:45 AM EDT ANTI-FACTOR XA Pending Discharge 08/08/2024 4:45 AM EDT CBC Pending Discharge 08/08/2024 4:45 AM EDT CBC Pending Discharge 08/07/2024 3:13 AM EDT PHOSPHORUS Pending Discharge 08/07/2024 3:13 AM EDT MAGNESIUM Pending Discharge 08/07/2024 3:13 AM EDT BASIC METABOLIC PANEL Pending Discharge 08/07/2024 3:13 AM EDT ANTI-FACTOR XA Pending Discharge 08/07/2024 3:13 AM EDT XR CHEST 1 VIEW STAT 08/06/2024 9:17 PM EDT RED TOP Routine 08/06/2024 9:10 PM EDT EXTRA TUBES Routine 08/06/2024 9:10 PM EDT ANTI-FACTOR XA Pending Discharge 08/06/2024 9:10 PM EDT PHOSPHORUS Pending Discharge 08/06/2024 3:51 AM EDT MAGNESIUM Pending Discharge 08/06/2024 3:51 AM EDT BASIC METABOLIC PANEL Pending Discharge 08/06/2024 3:51 AM EDT ANTI-FACTOR XA Pending Discharge 08/06/2024 3:51 AM EDT CBC Pending Discharge 08/06/2024 3:51 AM EDT LIGHT GREEN TOP Routine 08/05/2024 11:42 PM EDT EXTRA TUBES Routine 08/05/2024 11:42 PM EDT HEMOGLOBIN AND HEMATOCRIT, BLOOD Timed 08/05/2024 11:42 PM EDT TRANSFUSE RED BLOOD CELLS Routine 08/05/2024 1:00 PM EDT ECG 12-LEAD STAT 08/05/2024 10:26 AM EDT CBC Routine 08/05/2024 9:00 AM EDT PREPARE RBC Routine 08/05/2024 4:44 AM EDT PREPARE RBC Routine 08/05/2024 4:44 AM EDT CO-OXIMETRY Routine 08/05/2024 3:30 AM EDT HEMOGLOBIN AND HEMATOCRIT, BLOOD Timed 08/05/2024 3:13 AM EDT PHOSPHORUS Routine 08/05/2024 3:13 AM EDT MAGNESIUM Routine 08/05/2024 3:13 AM EDT BASIC METABOLIC PANEL Routine 08/05/2024 3:13 AM EDT ANTI-FACTOR XA Routine 08/05/2024 3:13 AM EDT TYPE AND SCREEN Routine 08/05/2024 3:13 AM EDT RESPIRATORY VIRUS PCR PANEL Routine 08/04/2024 1:01 PM EDT SARS-COV-2 PCR Routine 08/04/2024 11:17 AM EDT RAPID INFLUENZA A/B PCR Routine 08/04/2024 11:17 AM EDT ARTERIAL BLOOD GAS WITH IONIZED CALCIUM Timed 08/04/2024 11:00 AM EDT XR CHEST 1 VIEW Routine 08/04/2024 10:43 AM EDT RESPIRATORY ASSESS AND TREAT PROTOCOL Routine 08/04/2024 8:00 AM EDT CO-OXIMETRY Routine 08/04/2024 3:31 AM EDT HIGH SENSITIVITY TROPONIN I Routine 08/04/2024 3:05 AM EDT PHOSPHORUS Routine 08/04/2024 3:05 AM EDT MAGNESIUM Routine 08/04/2024 3:05 AM EDT BASIC METABOLIC PANEL Routine 08/04/2024 3:05 AM EDT ANTI-FACTOR XA Routine 08/04/2024 3:05 AM EDT CBC Routine 08/04/2024 3:05 AM EDT RESPIRATORY ASSESS AND TREAT PROTOCOL Routine 08/04/2024 1:06 AM EDT LACTIC ACID WITH 4 HOUR REFLEX Routine 08/03/2024 10:12 PM EDT ANTI-FACTOR XA Timed 08/03/2024 6:35 PM EDT BLOOD CULTURE Routine 08/03/2024 5:46 PM EDT POCT GLUCOSE METER UNSOLICITED RESULTS Routine 08/03/2024 5:45 PM EDT BLOOD CULTURE Routine 08/03/2024 5:43 PM EDT XR CHEST 1 VIEW STAT 08/03/2024 4:23 PM EDT CO-OXIMETRY Routine 08/03/2024 3:59 PM EDT ANTI-FACTOR XA Timed 08/03/2024 1:05 PM EDT COMPLETE ECHO (TTE) W/ IMAGING AGENT STAT 08/03/2024 11:25 AM EDT XR CHEST 1 VIEW STAT 08/03/2024 10:09 AM EDT POTASSIUM, WHOLE BLOOD STAT 08/03/2024 10:00 AM EDT SODIUM, WHOLE BLOOD STAT 08/03/2024 1 0:00 AM EDT CALCIUM, IONIZED STAT 08/03/2024 10:0 0 AM EDT ARTERIAL BLOOD GAS WITH CO-OXIMETRY STAT 08/03/2024 10:00 AM EDT COMPLETE ARTERIAL BLOOD GAS PANEL STAT 08/03/2024 10:00 AM EDT POCT GLUCOSE METER UNSOLICITED RESULTS Routine 08/03/2024 9:58 AM EDT ECG 12-LEAD STAT 08/03/2024 9:43 AM EDT ECG 12-LEAD Routine 08/03/2024 8:18 AM EDT RESPIRATORY ASSESS AND TREAT PROTOCOL Routine 08/03/2024 8:00 AM EDT ECG 12-LEAD STAT 08/03/2024 6:25 AM EDT XR CHEST 1 VIEW STAT 08/03/2024 5:29 AM EDT RESPIRATORY ASSESS AND TREAT PROTOCOL Routine 08/03/2024 5:29 AM EDT B-TYPE NATRIURETIC PEPTIDE STAT 08/03/2024 5:23 AM EDT LIPID PANEL Routine 08/03/2024 5:23 AM EDT TSH3 REFLEX TO FT4 Routine 08/03/2024 5: 23 AM EDT APTT STAT 08/03/2024 5:23 AM EDT PROTIME-INR STAT 08/03/2024 5:23 AM EDT PHOSPHORUS STAT 08/03/2024 5:23 AM EDT LACTIC ACID WITH 4 HOUR REFLEX STAT 08/03/2024 5:23 AM EDT MAGNESIUM STAT 08/03/2024 5:23 AM EDT COMPREHENSIVE METABOLIC PANEL STAT 08/03/2024 5:23 AM EDT CBC WITH AUTO DIFFERENTIAL STAT 08/03/2024 5:23 AM EDT HIGH SENSITIVITY TROPONIN I STAT 08/03/2024 5:23 AM EDT CBC AND DIFFERENTIAL STAT 08/03/2024 5:23 AM EDT ECG 12-LEAD Routine 08/02/2024 2:05 PM EDT from Last 3 Months Results * CBC (08/22/2024 1:50 PM EDT) Only the most recent of11 resultswithin the time period is included. Blood Venous blood specimen / Unknown [facility] Provider MD LAB BLOOD ORDERABLES [place] Result * Comprehensive metabolic panel (08/22/2024 1:50 PM EDT) Only the most recent of2 resultswithin the time period is included. Blood Venous blood specimen / Unknown [facility] Provider MD LAB BLOOD ORDERABLES [place] Result * Basic metabolic panel (08/22/2024 1:50 PM EDT) Only the most recent of8 resultswithin the time period is included. Blood Venous blood specimen / Unknown [facility] Provider MD LAB BLOOD ORDERABLES [place] Result * (ABNORMAL) POCT glucose meter (08/14/2024 11:44 AM EDT) Only the most recent of24 resultswithin the time period is included. [facility] Glucose POC 360(H) 70 - 105 mg/dL 08/14/2024 11:55 AM EDT [facility] ([place]) Comment:[email or web address] Blood Capillary blood specimen / Unknown 08/14/2024 11:44 AM EDT 08/14/2024 11:55 AM EDT Narrative [facility] [place]) - 08/14/2024 11:55 AM EDT Waived Testing in the ED is performed under the ED CLIA certificate #[id number]. us Elyse Gunn MD LAB BLOOD ORDERABLES Final Resul t [facility]) [address] [place] [address] * (ABNORMAL) Protime-INR - Daily (08/14/2024 3:31 AM EDT) Only the most recent of6 resultswithin the time period is included. Protime 17.8(H) 12.3 - 14.8 Seconds 08/14/2024 4:25 AM EDT [facility]) INR 1.49(H) 0.90 - 1.10 08/14/2024 4:25 AM EDT [facility]) Comment: [facility] RECOMMENDED INR FOR WARFARIN THERAPY CONDITION INR PROPHYLAXIS OF VENOUS THROMBOSIS 2-3 (HIGH-RISK SURGERY) TREATMENT OF VENOUS THROMBOSIS 2-3 TREATMENT OF PULMONARY EMBOLISM 2-3 PREVENTION OF SYSTEMIC EMBOLISM: 2-3 ACUTE MYOCARDIAL INFARCTION TISSUE HEART VALVES VALVULAR HEART DISEASE ATRIAL FIBRILLATION RECURRENT SYSTEMIC EMBOLISM MECHANICAL HEART VALVE 2.5-3.5 FROM: ORAL ANTICOAGULANTS. MECHANISM OF ACTION, CLINICAL EFFECTIVENESS, AND OPTIMAL THERAPEUTIC RANGE. CHEST 1995;108:231S-246S. Blood Venous blood specimen / Unknown Venipuncture / Unknown 08/14/2024 3:31 AM EDT 08/14/2024 3:59 AM EDT us Elyse Gunn MD LAB BLOOD ORDERABLES Final Resul t [facility] ([place]) [address] [place] [address] * Transfuse RBC (08/12/2024 7:58 PM EDT) Only the most recent of3 resultswithin the time period is included. us Charles Norm MORENO BLOOD TRANSFUSION ORDERABLES Final Result * Prepare RBC (08/12/2024 8:31 AM EDT) Only the most recent of5 resultswithin the time period is included. PRODUCT CODE [id number] [facility] Unit Number [id number] Unit ABO O [facility] Unit Rh POS [facility] Crossmatch Interpretation COMP [facility] Dispense Status TR [facility] Blood Expiration Date [facility] Product Blood Type 5100 [facility] Unit Volume 300 ML [facility] 08/12/2024 8:31 AM EDT Elyse Gunn MD BLOOD BANK PRODUCT ORDERABLES Fi nal Result Performing Organization Address City/[facility] Co de Phone Number [facility] * Type and screen (08/12/2024 7:44 AM EDT) Only the most recent of2 resultswithin the time period is included. ABO Grouping O 08/12/2024 9:11 AM EDT [facility] Rh Type POS 08/12/2024 9:11 AM EDT [facility] Ab Scrn NEG 08/12/2024 9:11 AM EDT [facility] Blood Venous blood specimen / Unknown Venipuncture / Unknown 08/12/2024 7:44 AM EDT 08/12/2024 8:20 AM EDT us Charles Norm MORENO LAB BLOOD BANK TEST ORDERABL ES Final Result [facility] * XR chest 1 view (08/12/2024 5:22 AM EDT) Only the most recent of7 resultswithin the time period is included. Anatomical Region Laterality Modality Chest Computed Radiogr aphy 08/12/2024 5:24 AM EDT Impressions 08/12/2024 5:24 AM EDT Impression: No significant interval change. Electronically signed: Kaushal Heaton. Narrative 08/12/2024 5:24 AM EDT Single view chest History: Difficulty breathing, shortness of breath Comparison: 08/09/2024 Findings: Single portable view of the chest. Stable cardiomediastinal silhouette. There is stable vascular congestion edema with small pleural effusions and bilateral lower lung atelectasis versus pneumonia. Procedure Note Kaushal Heaton MD - 08/12/2024 Single view chest History: Difficulty breathing, shortness of breath Comparison: 08/09/2024 Findings: Single portable view of the chest. Stable cardiomediastinal silhouette.There is stable vascular congestion edema with small pleural effusions andbilateral lower lung atelectasis versus pneumonia. IMPRESSION: Impression: No significant interval change. Electronically signed: Kaushal Heaton. us Elyse Gunn MD IMG XR PROCEDURES Final Result * Light Green Top (08/12/2024 4:26 AM EDT) Only the most recent of3 resultswithin the time period is included. Extra Tube Hold for add-ons. 08/12/2024 7:01 AM EDT [facility] ([place]) Comment:Auto resulted. Blood Venous blood specimen / Unknown Venipuncture / Unknown 08/12/2024 4:26 AM EDT 08/12/2024 5:03 AM EDT us Elyse Gunn MD LAB BLOOD ORDERABLES Final Resul t [facility] ([place]) [address] [place] [address] * Red Top (08/10/2024 11:59 AM EDT) Only the most recent of2 resultswithin the time period is included. Extra Tube Hold for add-ons. 08/10/2024 2:01 PM EDT [facility] ([facility]) Comment:Auto resulted. Blood Venous blood specimen / Unknown 08/10/2024 11:59 AM EDT 08/10/2024 12:06 PM EDT Elyse Gunn MD LAB BLOOD ORDERABLES Final Resul t Performing Organization Address City/[facility] Co de Phone Number [facility]) [address] [place] [address] * Anti-Xa (Heparin Level) (08/10/2024 11:59 AM EDT) Only the most recent of14 resultswithin the time period is included. Anti-Xa (Heparin) 0.50 0.3 - 0.7 IU/mL 08/10/2024 12:28 PM EDT [facility] ([facility]) Comment:Rivaroxaban and Apix aban will interfere with the anti Xa assay used to monitor UFH and LMWH. Blood Venous blood specimen / Unknown Venipuncture / Unknown 08/10/2024 11:59 AM EDT 08/10/2024 12:06 PM EDT Ciro Chappell MD LAB BLOOD ORDERABLES Final R esult [facility]) [address] [place] [address] * Lavender Top (08/10/2024 9:26 AM EDT) Extra Tube Hold for add-ons. 08/10/2024 11:01 AM EDT [facility] ([facility]) Comment:Auto resulted. Blood Venous blood specimen / Unknown 08/10/2024 9:26 AM EDT 08/10/2024 9:26 AM EDT us Elyse Gunn MD LAB BLOOD ORDERABLES Final Resul t Performing Organization Address City/[facility]/ZIP Co de Phone Number [facility] [place]) [address] [place] [address] * Lactic acid with 4 hour reflex (08/10/2024 5:41 AM EDT) Only the most recent of3 resultswithin the time period is included. Lactate 0.8 0.5 - 2.2 mmol/L 08/10/2024 6:30 AM EDT [facility] ([place]) Blood Venous blood specimen / Unknown Venipuncture / Unknown 08/10/2024 5:41 AM EDT 08/10/2024 5:46 AM EDT us Elyse Gunn MD LAB BLOOD ORDERABLES Final Resul t Performing Organization Address [facility] Co de Phone Number [facility] ([place]) [address] [place] [id number] * ECG 12 lead (08/09/2024 8:49 PM EDT) Only the most recent of7 resultswithin the time period is included. Ventricular Rate 65 BPM GE MUSE QRS DURATION 140 ms GE MUSE QT Interval 458 ms GE MUSE QTC CALCULATION(BAZE TT) 476 ms GE MUSE R-Garner -17 degrees GE MUSE T Wave Garner 157 degrees GE MUSE 08/09/2024 8:01 PM EDT 08/10/2024 7:22 AM EDT Impressions GE MUSE - 08/10/2024 7:22 AM EDT Atrial fibrillation with premature ventricular or aberrantly conducted complexes Non-specific intra-ventricular conduction block Cannot rule out Anterior infarct , age undetermined Abnormal ECG When compared with ECG of 09-AUG-2024 12:33, T wave inversion no longer evident in Anterior leads Confirmed by Ciro Chappell ([id number]) on 08/10/2024 7:22:15 AM Narrative Procedure Note Ciro Chappell MD - 08/10/2024 IMPRESSION: Atrial fibrillation with premature ventricular or aberrantly conducted complexes Non-specific intra-ventricular conduction block Cannot rule out Anterior infarct , age undetermined Abnormal ECG When compared with ECG of 09-AUG-2024 12:33, T wave inversion no longer evident in Anterior leads Confirmed by Ciro Chappell ([id number]) on 08/10/2024 7:22:15 AM Ciro Chappell MD ECG ORDERABLES Final Result [facility] * CORONARY ANGIOGRAPHY, RIGHT HEART CATH, PERC CORONARY INTERVENTION, CORONARY BYPASS GRAFT STUDY (08/09/2024 5:56 PM EDT) Anatomical Region Laterality Modality Other Narrative 08/09/2024 6:06 PM EDT PROCEDURE PHYSICIAN: Ciro Chappell MD . Indications: Johnathan Greer is a 89 y.o. male who has a history of coronary artery disease status post bypass surgery with BALDWIN to LAD in the past, also status post bioprosthetic aortic valve replacement at that time. He has persistent atrial fibrillation. He has ischemic cardiomyopathy and reduced ejection fraction. He was admitted worsening shortness of breath, picture of shock, NSTEMI, and acute on chronic systolic heart failure. He was in the ICU for several days and was stabilized. He was then referred for cardiac catheterization. Assistants: Dr Deena Whiting. Dr Lizabeth Manning. Procedure Performed: Bilateral selective coronary angiogram. Bypass graft angiogram. Right heart catheterization. Successful balloon angioplasty and drug eluting stenting of 85% stenosis in the mid right coronary artery, with reduction of the stenosis to 0% by a Synergy XD 3.5 x 24 mm drug eluting stent, post dilated to 3.5 mm at high pressures. Successful scoring balloon angioplasty of 90% instent re-stenosis in the proximal diagonal branch of the LAD, with reduction of the stenosis to 0% by balloon angioplasty. Successful scoring balloon angioplasty of 70% stenosis in the proximal LAD, with reduction of the stenosis to 30% by balloon angioplasty. Administration of intracoronary nitroglycerin. Access into the right common femoral artery and common femoral vein under ultrasound guidance. Limited right common femoral angiogram. Deployment of 6F Angio-Seal vascular closure device in the right common femoral artery. Deployment of 6F Proglide vascular closure device in the right common femoral vein. Methods: Procedure was explained to the patient with risks and benefits; the POA signed informed consent. he was brought to the lab support technician in a fasting state. The right groin area was prepped and draped in usual fashion. Micropuncture technique was used under ultrasound guidance for access in the right common femoral artery. Inner cannular angiography was performed followed by upsizing to a 6-Salvadorean x 11 cm sheath. Micropuncture technique was used under ultrasound guidance for access in the right common femoral vein and a 6-Salvadorean x 11 cm sheath was placed. A 6-Salvadorean Kemp catheter was used for right heart catheterization and measurement of pressures and calculation of cardiac output using the estimated Lidia method. Kemp catheter was removed. Bilateral selective coronary angiography was then performed using 6-Salvadorean JL4 and JR4 diagnostic catheters. Catheters were removed. A 6-Salvadorean IM diagnostic catheter was used to selectively engage the left subclavian artery and then selectively engage the left internal mammary artery. Heparin was administered intravenously and therapeutic ACT was confirmed during the rest of the procedure. A 6-Salvadorean JR4 guiding catheter was advanced and used to engage the right coronary ostium. Baseline RENEE flow was 3. A [place] coronary guide wire was advanced to the distal right coronary artery. A NC Emerge 3.25 x 15 mm non-compliant balloon was advanced and used to performed balloon angioplasty at the site of the mid RCA stenosis with inflations up to 18 Xavier. The balloon was retracted. Angiography was performed. A Synergy XD 3.5 x 24 mm drug-eluting stent was advanced and deployed at 11 Xavier across the stenosis and postdilated using a NC 3.5 x 8 mm non-compliant balloon inflated up to 24 Xavier throughout the length of the stented segment. Intracoronary nitroglycerin was administered followed by angiography which revealed excellent result with reduction of the stenosis to 0%, no evidence of dissection or perforation and RENEE 3 flow in the coronary artery and branches. The guiding catheter and wire were removed. A 6-Salvadorean JL4 guiding catheter was advanced and used to engage the left coronary ostium. Baseline RENEE flow was 3. A Prowater coronary guide wire was advanced to the distal diagonal branch coronary artery. A Scoreflex scoring balloon was advanced and used to performed balloon angioplasty at the site of the stenosis in the proximal diagonal and the proximal LAD with inflations up to 18 Xavier. The balloon was retracted. Angiography was performed. The guiding catheter and wire were removed. The patient was loaded with clopidogrel 600 mg at the end of the procedure. Hemostasis was achieved by Angioseal in the femoral artery Perclose in the femoral vein. he tolerated the procedure well and was transferred back to the hospital room. Hemodynamic Data: RA: 13 RV: 80/10, 14 PA: 80/28 (49) PCWP: 25 CO: 4.26 CI: 2.13 O2 Sat: PA sat: 42%, AO sat: 88% AO: 155/64 (92) TP PVR: 5.6 Wood units SVR: 1483 Metric units Coronary angiography: This is a right-dominant circulation. Left Main: This arises from the left coronary cusp. It bifurcates into left anterior descending and circumflex vessels. This has mild disease but no obstructive lesions. Left anterior descending: The proximal segment has a 70% stenosis that was reduced to 30% by scoring balloon angioplasty. The first diagonal branch has a previously placed stent with 90% in-stent restenosis which was reduced to 0% by scoring balloon angioplasty. Beyond the takeoff of the first diagonal branch the mid LAD provides a large septal branch after which the LAD is occluded. A previously placed stent in the mid LAD is occluded. The apical LAD is seen filling faintly via a patent BALDWIN graft. Circumflex: This is a non-dominant vessel. This has mild to moderate disease in the proximal and mid segments but no obstructive lesions. Right coronary artery: This arises from the right coronary cusp. It is a dominant vessel. it is a large vessel. The mid segment has an 85% stenosis that was reduced to 0% by a Synergy XD drug-eluting stent. The rest of the RCA is free of disease. Bypass graft angiography: BALDWIN to LAD: This graft is widely patent with no significant disease. However beyond the area of the anastomosis the LAD is very atretic and diffusely diseased and is seen to fill very faintly. Limited right common femoral angiography: This showed access to be in the femoral artery with no obstructive lesions seen in the common femoral artery and its proximal branches. Impression/Findings: Mild disease in the left main. Occluded mid LAD with faint filling of the distal LAD by a patent BALDWIN graft. 90% in-stent restenosis in the proximal segment of the first diagonal branch reduced to 0% by scoring balloon angioplasty. 70% stenosis in the proximal LAD reduced to 30% by scoring balloon angioplasty. Nonobstructive disease in the circumflex. 85% stenosis in the mid RCA reduced to 0% by a Synergy XD drug-eluting stent. Severe elevation of left filling pressures. Moderate elevation of right filling pressures. Severe pulmonary hypertension. Reduced cardiac output and cardiac index. Controlled systemic hypertension. 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 Plan: Medical therapy for coronary artery disease. Aspirin 81 mg daily for life. Dual antiplatelet therapy with Aspirin 81 mg daily for life and Clopidogrel 75 mg daily for 12 months. Given that the patient will be maintained on anticoagulation therapy for atrial fibrillation, aspirin can be stopped in 1 to 2 weeks and that he can be continued on anticoagulation therapy with clopidogrel only. Statin therapy for life. Guideline directed medical therapy for heart failure. 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 Further recommendations per inpatient Cardiology service. Follow up in Cardiology Clinic. Ciro Chappell MD Study Details NSTEMI (non-ST elevated myocardial infarction) (CMS/HCC) [I21.4], Acute on chronic systolic congestive heart failure (CMS/HCC) [I50.23], Non-rheumatic aortic stenosis [I35.0], S/P aortic valve replacement with bioprosthetic valve [Z95.3], Hx of CABG [Z95.1] Ciro Chappell MD CV CARDIAC CATH PROCEDURES F inal Result * (ABNORMAL) POC Activated Clotting Time (08/09/2024 5:43 PM EDT) Only the most recent of3 resultswithin the time period is included. 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 Phosphorus 3.1 2.5 - 5.0 mg/dL 08/07/2024 3:57 AM EDT [facility] ([facility]) Blood Venous blood specimen / Unknown Venipuncture / Unknown 08/07/2024 3:13 AM EDT 08/07/2024 3:34 AM EDT us Loren Benito MD LAB BLOOD ORDERABLES Final Res ult [facility] ([facility]) [address] [place] [address] * Magnesium (08/07/2024 3:13 AM EDT) Only the most recent of5 resultswithin the time period is included. Magnesium 2.0 1.9 - 2.7 mg/dL 08/07/2024 3:57 AM EDT [facility] ([facility]) Blood Venous blood specimen / Unknown Venipuncture / Unknown 08/07/2024 3:13 AM EDT 08/07/2024 3:34 AM EDT Result Jacob Benito MD LAB BLOOD ORDERABLES Final Res ult Performing Organization Address [facility] Co de Phone Number [facility] ([facility]) [address] [place], [place] [id number] * (ABNORMAL) Hemoglobin and hematocrit, blood (08/05/2024 11:42 PM EDT) Only the most recent of2 resultswithin the time period is included. Hemoglobin 9.6(L) 13.0 - 17.0 g/dL 08/06/2024 1:11 AM EDT [facility] ([facility]) Hematocrit 32.6(L) 39.0 - 50.0 % 08/06/2024 1:11 AM EDT [facility] ([facility]) Blood Venous blood specimen / Unknown Venipuncture / Unknown 08/05/2024 11:42 PM EDT 08/06/2024 12:30 AM EDT Loren Benito MD LAB BLOOD ORDERABLES Final Res ult Performing Organization Address [facility] Co de Phone Number [facility] ([facility]) [address] [place] [address] * Co-oximetry (08/05/2024 3:30 AM EDT) Only the most recent of3 resultswithin the time period is included. Carboxyhemoglobin 1.4 % 025 3:32 AM EDT [facility] Methemoglobin 0.1 0.0 - 1.5 % 08/05/2024 3:32 AM EDT [facility] Oxyhemoglobin 64.4 % 08/05/2024 3:32 AM EDT [facility] Total Hemoglobin 5.9 g/dL 08/06/19 25 3:32 AM EDT [facility] O2 Sat 65.4 % 08/05/2024 3:32 AM EDT [facility] Blood Mixed venous blood specimen / Unknown Arterial Line / Unknown 08/05/2024 3:30 AM EDT 08/05/2024 3:30 AM EDT us oLren Benito MD LAB BLOOD ORDERABLES Final Res ult [facility] [address] [place] [address], [place] * (ABNORMAL) Respiratory virus PCR panel (08/04/2024 1:01 PM EDT) Adenovirus Not Detected Not Detected 08/04/2024 2:10 PM EDT [facility] ([facility]) Bordetella pertussis Not Detected Not Detected 08/04/2024 2:10 PM EDT [facility] ([facility]) Bordetella parapertussis Not Detected Not Detected 08/04/2024 2:10 PM EDT [facility] ([facility]) Chlamydia pneumoniae Not Detected Not Detected 08/04/2024 2:10 PM EDT [facility] ([facility]) Coronavirus 229E Not Detected Not Detected 08/04/2024 2:10 PM EDT [facility] ([facility]) Coronavirus HKU1 Not Detected Not Detected 08/04/2024 2:10 PM EDT [facility] ([facility]) Coronavirus NL63 Not Detected Not Detected 08/04/2024 2:10 PM EDT [facility] ([facility]) Coronavirus OC43 Not Detected Not Detected 08/04/2024 2:10 PM EDT [facility] ([facility]) Human Metapneumovirus Not Detected Not Detected 08/04/2024 2:10 PM EDT [facility] ([facility]) Human Rhinovirus + Enterovirus Not Detected Not Detected 08/04/2024 2:10 PM EDT [facility] ([facility]) Influenza A Not Detected Not Detected 08/04/2024 2:10 PM EDT [facility] ([facility]) Influenza B Not Detected Not Detected 08/04/2024 2:10 PM EDT [facility] ([facility]) Mycoplasma pneumoniae Not Detected Not Detected 08/04/2024 2:10 PM EDT [facility] ([facility]) Parainfluenza 1 Not Detected Not Detected 08/04/2024 2:10 PM EDT [facility] ([facility]) Parainfluenza 2 Not Detected Not Detected 08/04/2024 2:10 PM EDT [facility] ([facility]) Parainfluenza 3 Detected(A) Not Detected 08/04/2024 2:10 PM EDT [facility] ([facility]) Parainfluenza 4 Not Detected Not Detected 08/04/2024 2:10 PM EDT [facility] ([facility]) Respiratory Syncytial Virus Not Detected Not Detected 08/04/2024 2:10 PM EDT [facility] ([facility]) SARS-CoV-2 Not Detected Not Detected 08/04/2024 2:10 PM EDT [facility] ([facility]) Swab Nasopharyngeal structure / Unknown Non-blood Collection / Unknown 08/04/2024 1:01 PM EDT 08/04/2024 1:05 PM EDT Narrative [facility] ([facility]) - 08/04/2024 2:10 PM EDT Testing methodology is a multiplexed nucleic acid test intended for the simultaneous qualitative detection and differentiation of nucleic acids from multiple viral and bacterial respiratory organisms in nasopharyngeal swabs (LASER ENGINEER). Loren Benito MD LAB MICROBIOLOGY - GENERAL ORD ERABLES Final Result Performing Organization Address City/State/[facility] Co de Phone Number [facility] ([facility]) [address] [place] [address] * SARS-CoV-2 PCR (08/04/2024 11:17 AM EDT) SARS-CoV-2 PCR Negative Negative 08/04/2024 12:25 PM EDT [facility] ([facility]) Swab Nasal structure / Unknown Non-blood Collection / Unknown 08/04/2024 11:17 AM EDT 08/04/2024 11:22 AM EDT Narrative [facility] ([facility]) - 08/04/2024 12:25 PM EDT Testing methodology utilizes isothermal nucleic acid amplification technology for the differential and qualitative detection of SARS-CoV-2 viral nucleic acids. Testing methodology utilizes isothermal nucleic acid amplification technology for the differential and qualitative detection of SARS-CoV-2 viral nucleic acids. Loren Benito MD LAB MICROBIOLOGY - GENERAL ORD ERABLES Final Result [facility] ([facility]) [address] [place] [address] * Rapid influenza A/B PCR (08/04/2024 11:17 AM EDT) Pathologist [facility] Rapid Influenza A PCR Negative Negative 08/04/2024 12:25 PM EDT [facility] ([facility]) Rapid Influenza B PCR Negative Negative 08/04/2024 12:25 PM EDT [facility] ([facility]) Swab Nasal structure / Unknown Non-blood Collection / Unknown 08/04/2024 11:17 AM EDT 08/04/2024 11:22 AM EDT Narrative [facility] ([facility]) - 08/04/2024 12:25 PM EDT Testing methodology utilizes isothermal nucleic acid amplification technology for the differential and qualitative detection of Influenza A and Influenza B viral nucleic acids. Testing methodology utilizes isothermal nucleic acid amplification technology for the differential and qualitative detection of Influenza A and Influenza B viral nucleic acids. us Loren Benito MD LAB MICROBIOLOGY - GENERAL ORD ERABLES Final Result [facility] ([facility]) [address] [place] [address] * (ABNORMAL) Arterial blood gas with ionized calcium (08/04/2024 11:00 AM EDT) pH, Arterial 7.40 7.35 - 7.45 pH 08/04/2024 11:02 AM EDT [facility] pCO2, Arterial 35 35 - 48 mmHg 08/04/2024 11:02 AM EDT [facility] pO2, Arterial 122(H) 83 - 100 mmHg 08/04/2024 11:02 AM EDT [facility] HCO3, Arterial 21.7 21.0 - 28.0 mEq/L 08/04/2024 11:02 AM EDT [facility] Calcium, Ion 1.21 1.15 - 1.33 mmol/L 08/04/2024 11:02 AM EDT [facility] O2 Sat, Arterial 98.9(H) 94.0 - 98.0 % 08/04/2024 11:02 AM EDT [facility] Base Excess, Arterial -2.5(L) -2.0 - 3.0 mmol/L 08/04/2024 11:02 AM EDT [facility] Source Of Oxygen High flow nasal cannula 08/04/2024 11:02 AM EDT [facility] FiO2 35 % 08/04/2024 11:02 AM EDT [facility] LPM 40 08/04/2024 11:02 AM EDT [facility] Blood Arterial blood specimen / Unknown Arterial Line / Unknown 08/04/2024 11:00 AM EDT 08/04/2024 11:01 AM EDT Loren Benito MD LAB BLOOD ORDERABLES Final Res ult Performing Organization Address City/[facility] Co de Phone Number [facility] [address] [place] [address], [place] * (ABNORMAL) HIGH SENSITIVITY TROPONIN I (08/04/2024 3:05 AM EDT) Only the most recent of2 resultswithin the time period is included. High Sensitivity Troponin I 289(HH) <20 ng/L 08/04/2024 4:27 AM EDT [facility] ([facility]) Blood Venous blood specimen / Unknown Arterial Line / Unknown 08/04/2024 3:05 AM EDT 08/04/2024 3:44 AM EDT Loren Benito MD LAB BLOOD ORDERABLES Final Res ult Performing Organization Address City/[facility]/ZIP Co de Phone Number [facility] ([facility]) [address] [place] [address] * Blood culture, peripheral #2 (08/03/2024 5:46 PM EDT) Only the most recent of2 resultswithin the time period is included. Blood Culture No growth at 5 days MARY 08/08/2024 7:01 PM EDT [facility] Blood Venous blood specimen / Unknown Venipuncture / Unknown 08/03/2024 5:46 PM EDT 08/03/2024 6:11 PM EDT us Lorne Benito MD LAB MICROBIOLOGY - GENERAL ORD ERABLES Final Result [facility] ([facility]) [address] [place] [address] * COMPLETE ECHO (TTE) W/ IMAGING AGENT (08/03/2024 11:25 AM EDT) Anatomical Region Laterality Modality Other 08/03/2024 10:1 1 AM EDT Narrative 08/03/2024 1:03 PM EDT 1 1 [facility] Heart Station [address] [place] [address] [phone] (fax) Echocardiogram-[facility] Name: JOHNATHAN GREER Study Date: 08/03/2024 10:11 AM B/P: 99 mmHg/43 mmHg HR: 57 bpm Date of : 1935 Location: [facility] Height: 71 in. Age: 89 year(s) Patient Room: 3231 Weight: 205 lb. Gender: Male Patient Status: InPt BSA: 2.13 m2 Indication: Heart failure with reduced EF, CAD, S/P CABG, S/P TAVR, Atrial Fibrillation, Diabetes, hyperlipidemia, Hypertension Examination: Echocardiogram (Complete), Lumason Contrast Image Quality: Poor sound transmission in apical views Patient Consent: Unable to explain procedure, due to medical/mental status Exam Details Contrast: I.V. dose of Lumason Conclusions Left Ventricle: The left ventricle is mildly enlarged. Global left ventricular systolic function is severely reduced. The calculated Biplane EF is 30 %. EF range is estimated at 25 % -30 %. Left ventricular wall thickness is at upper normal limits. Regional wall motion abnormalities (see diagram). Grade 3, severe diastolic dysfunction (reversible restrictive LV filling pattern). Right Ventricle: The right ventricle appears normal in size. Right ventricular systolic function appears normal. Doppler studies suggest moderately elevated right sided pressures (elevated pulmonary pressure). Left Atrium: The left atrium is mildly enlarged. Mitral Valve: Mild mitral regurgitation. Aortic Valve: The TAVR valve is well seated in the aortic position, the leaflets appear thickened with restricted systolic opening, Continuity equationsuggests low flow low gradient aortic stenisis probably moderate. Aortic Valve Measurements AV PGmean: 15.00 mmHg. AV Vmax, Caliper: 2.78 m/s. AV DVI: 0.23. AT 110 ms. Tricuspid Valve: Mild tricuspid regurgitation. Pulmonic Valve: Moderate pulmonary regurgitation. Overall Conclusions: Due to suboptimal imaging Lumason contrast was administered for opacification and better delineation of endocardial borders. Measurements Left Ventricle Label Value Normal Value LVOTd 2.07 cm (19cm - 21cm) LVOT VTI 13.8 cm (18cm - 22cm) LVOT PGmax 1.6 mmHg LVDd, 2D 6.02 cm (4.2cm - 5.9cm) LVDs, 2D 4.59 cm (2.1cm - 4cm) IVSd, 2D 1.04 cm (0.6cm - 1.1cm) LVPWd, 2D 1.13 cm (0.6cm - 1cm) LVEF, BP 30 % (55% - 65%) LV Mass, 2D ASE 276.15 g LV Mass Index, 2D ASE 129.6 g/m?? (50g/m?? - 102.4g/m??) RWT, MM 0.38 (0 - 0.42) RWT, 2D 0.38 LVSVI, 2D 39.9 ml/m2 LVOT PGmean 1 mmHg LVSV_LVOT 31 ml Left Atrium Label Value Normal Value LA Volume, BP 86 ml (18ml - 58ml) LADs, 2D 4.8 cm (3cm - 4cm) LAESV index, BP 40.4 ml/m?? Right Atrium Label Value Normal Value RA Area 17.9 cm?? Aortic Valve Label Value Normal Value AV DVI 0.23 AV VTI 60.9 cm Mitral Valve Label Value Normal Value MV E Vmax 1.54 m/s MV A Vmax 0.42 m/s MV E/A 3.67 MV E/E' lateral 22.5 MV E' lateral 0.07 m/s Tricuspid Valve Label Value Normal Value RA Pressure 3 mmHg RVSP 51 mmHg TR Vmax 3.46 m/s Aorta Label Value Normal Value AoRoot, 2D 3 cm (1.4cm - 3.8cm) Great Vessels Label Value Normal Value IVC 1.8 cm (1.2cm - 2.3cm) Valvular Assessment LVOT 0.7 - 1.1 m/sec Aortic Valve 1.0 - 1.7 m/sec Mitral Valve 0.6 - 1.3 m/sec Tricuspid Valve 0.3 - 0.7 m/sec Pulmonic Valve 0.6 - 0.9 m/sec Regurgitation Mild Mild Mod Stenosis No No No Max Velocity 0.63 m/sec 2.78 m/s 1.54 m/sec Max Gradient 30.91 mmHg Mean Gradient 15.00 mmHg Valve Area 0.8 cm?? Findings Left Ventricle: The left ventricle is mildly enlarged. Global left ventricular systolic function is severely reduced. The calculated Biplane EF is 30 %. EF range is estimated at 25 % -30 %. Left ventricular wall thickness is at upper normal limits. Regional wall motion abnormalities (see diagram). Grade 3, severe diastolic dysfunction (reversible restrictive LV filling pattern). Left Ventricular Measurements LV Mass, 2D [place]: 331 g. LV Mass Index, 2D Tarik: 155.4 g/m2. Right Ventricle: Right ventricle is poorly visualized. The right ventricle appears normal in size. Right ventricular systolic function appears normal. Doppler studies suggest moderately elevated right sided pressures (elevated pulmonary pressure). Left Atrium: The left atrium is mildly enlarged. Right Atrium: The right atrium is normal in size. Mitral Valve: There is nonspecific thickening of the mitral valve leaflet. Mild mitral regurgitation. No mitral valve stenosis. There is mitral annular calcification. Aortic Valve: The TAVR valve is well seated in the aortic position, the leaflets appear thickened with restricted systolic opening, Continuity equationsuggests low flow low gradient aortic stenisis probably moderate. No prosthesis regurgitation. Aortic Valve Measurements AV PGmean: 15.00 mmHg. AV Vmax, Caliper: 2.78 m/s. AV DVI: 0.23. AT 110 ms. Tricuspid Valve: The tricuspid valve leaflets are thickened. Mild tricuspid regurgitation. No tricuspid valve stenosis. Pulmonic Valve: Pulmonary valve appears normal. Moderate pulmonary regurgitation. No pulmonic valve stenosis. Aorta: The aortic root exhibits normal size. Great Vessels: IVC: The IVC is normal in size. There is inspiratory collapse of the IVC. Pericardium: No pericardial effusion. Procedure Staff Reading Group: [facility] Referring Physician: EZRA YI Literacy Tutor: MADELINE Alicea Ordering Physician: TAM ACUNA Procedure Note Gertrudis Lafleur MD - 08/03/2024 1 1 [facility] Heart Station [address] [place] [address] [phone] (fax) Echocardiogram-[facility] Name: JOHNATHAN GREER Study Date: 08/03/2024 10:11 AM B/P: 99 mmHg/43 mmHg HR: 57 bpm Date of : 1935 Location: [facility] Height: 71 in. Age: 89 year(s) Patient Room: 3231 Weight: 205 lb. Gender: Male Patient Status: InPt BSA: 2.13 m2 Indication: Heart failure with reduced EF, CAD, S/P CABG, S/P TAVR, Atrial Fibrillation, Diabetes, hyperlipidemia, Hypertension Examination: Echocardiogram (Complete), Lumason Contrast Image Quality: Poor sound transmission in apical views Patient Consent: Unable to explain procedure, due to medical/mental status Exam Details Contrast: I.V. dose of Lumason Conclusions Left Ventricle: The left ventricle is mildly enlarged. Global left ventricular systolic function is severely reduced. The calculated Biplane EF is 30 %. EF range is estimated at 25 % -30 %. Left ventricular wall thickness is at upper normal limits. Regional wall motion abnormalities (see diagram). Grade 3, severe diastolic dysfunction (reversible restrictive LV filling pattern). Right Ventricle: The right ventricle appears normal in size. Right ventricular systolic function appears normal. Doppler studies suggest moderately elevated right sided pressures (elevated pulmonary pressure). Left Atrium: The left atrium is mildly enlarged. Mitral Valve: Mild mitral regurgitation. Aortic Valve: The TAVR valve is well seated in the aortic position, the leaflets appear thickened with restricted systolic opening, Continuity equationsuggests low flow low gradient aortic stenisis probably moderate. Aortic Valve Measurements AV PGmean: 15.00 mmHg. AV Vmax, Caliper: 2.78 m/s. AV DVI: 0.23. AT 110 ms. Tricuspid Valve: Mild tricuspid regurgitation. Pulmonic Valve: Moderate pulmonary regurgitation. Overall Conclusions: Due to suboptimal imaging Lumason contrast was administered for opacification and better delineation of endocardial borders. Measurements Left Ventricle Label Value Normal Value LVOTd 2.07 cm (19cm - 21cm) LVOT VTI 13.8 cm (18cm - 22cm) LVOT PGmax 1.6 mmHg LVDd, 2D 6.02 cm (4.2cm - 5.9cm) LVDs, 2D 4.59 cm (2.1cm - 4cm) IVSd, 2D 1.04 cm (0.6cm - 1.1cm) LVPWd, 2D 1.13 cm (0.6cm - 1cm) LVEF, BP 30 % (55% - 65%) LV Mass, 2D ASE 276.15 g LV Mass Index, 2D ASE 129.6 g/m?? (50g/m?? - 102.4g/m??) RWT, MM 0.38 (0 - 0.42) RWT, 2D 0.38 LVSVI, 2D 39.9 ml/m2 LVOT PGmean 1 mmHg LVSV_LVOT 31 ml Left Atrium Label Value Normal Value LA Volume, BP 86 ml (18ml - 58ml) LADs, 2D 4.8 cm (3cm - 4cm) LAESV index, BP 40.4 ml/m?? Right Atrium Label Value Normal Value RA Area 17.9 cm?? Aortic Valve Label Value Normal Value AV DVI 0.23 AV VTI 60.9 cm Mitral Valve Label Value Normal Value MV E Vmax 1.54 m/s MV A Vmax 0.42 m/s MV E/A 3.67 MV E/E' lateral 22.5 MV E' lateral 0.07 m/s Tricuspid Valve Label Value Normal Value RA Pressure 3 mmHg RVSP 51 mmHg TR Vmax 3.46 m/s Aorta Label Value Normal Value AoRoot, 2D 3 cm (1.4cm - 3.8cm) Great Vessels Label Value Normal Value IVC 1.8 cm (1.2cm - 2.3cm) Valvular Assessment LVOT 0.7 - 1.1 m/sec Aortic Valve 1.0 - 1.7 m/sec Mitral Valve 0.6 - 1.3 m/sec Tricuspid Valve 0.3 - 0.7 m/sec Pulmonic Valve 0.6 - 0.9 m/sec Regurgitation Mild Mild Mod Stenosis No No No Max Velocity 0.63 m/sec 2.78 m/s 1.54 m/sec Max Gradient 30.91 mmHg Mean Gradient 15.00 mmHg Valve Area 0.8 cm?? Findings Left Ventricle: The left ventricle is mildly enlarged. Global left ventricular systolic function is severely reduced. The calculated Biplane EF is 30 %. EF range is estimated at 25 % -30 %. Left ventricular wall thickness is at upper normal limits. Regional wall motion abnormalities (see diagram). Grade 3, severe diastolic dysfunction (reversible restrictive LV filling pattern). Left Ventricular Measurements LV Mass, 2D Tarik: 331 g. LV Mass Index, 2D Tarik: 155.4 g/m2. Right Ventricle: Right ventricle is poorly visualized. The right ventricle appears normal in size. Right ventricular systolic function appears normal. Doppler studies suggest moderately elevated right sided pressures (elevated pulmonary pressure). Left Atrium: The left atrium is mildly enlarged. Right Atrium: The right atrium is normal in size. Mitral Valve: There is nonspecific thickening of the mitral valve leaflet. Mild mitral regurgitation. No mitral valve stenosis. There is mitral annular calcification. Aortic Valve: The TAVR valve is well seated in the aortic position, the leaflets appear thickened with restricted systolic opening, Continuity equationsuggests low flow low gradient aortic stenisis probably moderate. No prosthesis regurgitation. Aortic Valve Measurements AV PGmean: 15.00 mmHg. AV Vmax, Caliper: 2.78 m/s. AV DVI: 0.23. AT 110 ms. Tricuspid Valve: The tricuspid valve leaflets are thickened. Mild tricuspid regurgitation. No tricuspid valve stenosis. Pulmonic Valve: Pulmonary valve appears normal. Moderate pulmonary regurgitation. No pulmonic valve stenosis. Aorta: The aortic root exhibits normal size. Great Vessels: IVC: The IVC is normal in size. There is inspiratory collapse of the IVC. Pericardium: No pericardial effusion. Procedure Staff Reading Group: [facility] Referring Physician: EZRA YI Literacy Tutor: MADELINE Alicea Ordering Physician: TAM ACUNA us Tam Acuna MD CV ECHO PROCEDURES Final R esult * Potassium, whole blood (08/03/2024 10:00 AM EDT) Potassium, Whole Blood 4.4 3.5 - 5.1 mmol/L 08/03/2024 10:01 AM EDT [facility] Blood Arterial blood specimen / Unknown Arterial Puncture / Unknown 08/03/2024 10:00 AM EDT 08/03/2024 10:00 AM EDT Edward Salomon MD LAB BLOOD ORDERABLES Final Res ult Performing Organization Address City/[facility]/ZIP Co de Phone Number [facility] [address] [place] [address], [place] * Sodium, whole blood (08/03/2024 10:00 AM EDT) Sodium, Whole Blood 137 136 - 145 08/03/2024 10:01 AM EDT [facility] Blood Arterial blood specimen / Unknown Arterial Puncture / Unknown 08/03/2024 10:00 AM EDT 08/03/2024 10:00 AM EDT Edward Salomon MD LAB BLOOD ORDERABLES Final Res ult Performing Organization Address [facility] Co de Phone Number [facility] [address] [place] [address], [place] * Calcium, ionized (08/03/2024 10:00 AM EDT) Calcium, Ion 1.26 1.15 - 1.33 mmol/L 08/03/2024 10:01 AM EDT [facility] Blood Arterial blood specimen / Unknown Arterial Puncture / Unknown 08/03/2024 10:00 AM EDT 08/03/2024 10:00 AM EDT us Edward Salomon MD LAB BLOOD ORDERABLES Final Res ult Performing Organization Address City/[facility] Co de Phone Number [facility] [address] [place] [address], [place] * (ABNORMAL) Arterial blood gas with co-oximetry (08/03/2024 10:00 AM [facility]) pH, Arterial 7.36 7.35 - 7.45 pH 08/03/2024 10:[address] [facility] pCO2, Arterial 40 35 - 48 mmHg 08/03/2024 10:[address] [facility] pO2, Arterial 174(H) 83 - 100 mmHg 08/03/2024 10:[address] [facility] HCO3, Arterial 22.6 21.0 - 28.0 mEq/L 08/03/2024 10:[address] [facility] Total Hemoglobin 9.6(L) 11.7 - 17.4 g/dL 08/03/2024 10:[address] [facility] O2 Sat, Arterial 98.8(H) 94.0 - 98.0 % 08/03/2024 10:[address] [facility] Carboxyhemoglobin 0.7 0.0 - 3.0 % 08/03/2024 10:[address] [facility] Methemoglobin 0.0 0.0 - 1.5 % 08/03/2024 10:[address] [facility] Deoxyhemoglobin 1.2 1 - 5 % 10:[address] [facility] Base Excess, Arterial -2.6(L) -2.0 - 3.0 mmol/L 08/03/2024 10:[address] [facility] Source Of Oxygen Bi-PAP 08/04/19 10:[address] [facility] FiO2 50 % 08/03/2024 10:[address] [facility] PEEP 6 cmH2O 08/03/2024 10:[address] [facility] Pressure Support 12 08/04/19 25 10:[address] [facility] Oxyhemoglobin 98.1(H) 90.0 - 95.0 % 08/03/2024 10:[address] [facility] Blood Arterial blood specimen / Unknown Arterial Puncture / Unknown 08/03/2024 10:00 AM EDT 08/03/2024 10:00 AM T us Edward Salomon MD LAB BLOOD ORDERABLES Final Res ult [facility] [address] [place] [address], [place] * TSH3 Reflex to FT4 (08/03/2024 5:23 AM EDT) TSH 2.31 0.34 - 5.60 mIU/L 08/03/2024 6:36 AM EDT [facility] ([facility]) Blood Venous blood specimen / Unknown Arterial Line / Unknown 08/03/2024 5:23 AM EDT 08/03/2024 5:46 AM EDT us Modesto Rodriguez MD LAB BLOOD ORDERABLES Final Re sult [facility] ([facility]) [address] [place] [address] * (ABNORMAL) CBC auto differential (08/03/2024 5:23 AM EDT) Auto WBC 7.83 4.00 - 10.60 10*3/uL 08/03/2024 6:02 AM EDT [facility] ([facility]) RBC 3.00(L) 4.20 - 5.70 10*6/uL 08/03/2024 6:02 AM EDT [facility] ([facility]) Hemoglobin 9.0(L) 13.0 - 17.0 g/dL 08/03/2024 6:02 AM EDT [facility] ([facility]) Hematocrit 30.1(L) 39.0 - 50.0 % 08/03/2024 6:02 AM EDT [facility] ([facility]) MCV 100.3(H) 82.0 - 98.0 fL 08/03/2024 6:02 AM EDT [facility] ([facility]) MCH 30.0 27.0 - 33.0 pg 08/03/2024 6:02 AM EDT [facility] ([facility]) MCHC 29.9(L) 32.0 - 35.0 g/dL 08/03/2024 6:02 AM [facility] ([facility]) RDW 15.9(H) 11.5 - 15.0 % 08/03/2024 6:02 AM [facility] ([facility]) Neutrophils % 86.6(H) 40.0 - 72.0 % 08/03/2024 6:02 AM [facility] ([facility]) Lymphocytes % 6.1(L) 20.0 - 45.0 % 08/03/2024 6:02 AM [facility] ([facility]) Monocytes % 6.3 5.0 - 12.0 % 08/03/2024 6:02 AM [facility] ([facility]) Eosinophils % 0.0 0.0 - 6.0 % 08/03/2024 6:02 AM [facility] ([facility]) Basophils % 0.4 0.0 - 1.0 % 08/03/2024 6:02 AM [facility] ([facility]) Neutrophils Absolute 6.78 1.60 - 7.60 10*3/uL 08/03/2024 6:02 AM [facility] ([facility]) Lymphocytes Absolute 0.48(L) 1.20 - 4.00 10*3/uL 08/03/2024 6:02 AM [facility] ([facility]) Monocytes Absolute 0.49 0.10 - 1.00 10*3/uL 08/03/2024 6:02 AM [facility] ([facility]) Eosinophils Absolute 0.00 0.00 - 0.50 10*3/uL 08/03/2024 6:02 AM [facility] ([facility]) Basophils Absolute 0.03 0.00 - 0.20 10*3/uL 08/03/2024 6:02 AM [facility] ([facility]) Platelets 116(L) 150 - 400 10*3/uL 08/03/2024 6:02 AM [facility] ([facility]) nRBC % 0.0 0 % 08/03/2024 6:02 AM [facility] ([facility]) Immature Granulocytes % 0.6 0.0 - 1.0 % 08/03/2024 6:02 AM [facility] ([facility]) Immature Granulocytes Absolute 0.05 0.00 - 0.20 10*3/uL 08/03/2024 6:02 AM EDT [facility] ([facility]) Immature Platelet Fraction % 4.0 0.8 - 6.3 % 08/03/2024 6:02 AM EDT [facility] ([facility]) Blood Venous blood specimen / Unknown Arterial Line / Unknown 08/03/2024 5:23 AM EDT 08/03/2024 5:46 AM EDT us Ezra Yi MD LAB BLOOD ORDERABLES Final Resul t Performing Organization Address City/[facility]/ZIP Co de Phone Number [facility]) [address] [place] [id number] * (ABNORMAL) APTT (08/03/2024 5:23 AM EDT) aPTT 39.4(H) 25.0 - 35.0 Seconds 08/03/2024 6:11 AM EDT [facility] ([facility]) Comment:Clinical significanc e of the APTT is questionable in the presence of heparin. Blood Venous blood specimen / Unknown Arterial Line / Unknown 08/03/2024 5:23 AM EDT 08/03/2024 5:31 AM EDT us Ezra Yi MD LAB BLOOD ORDERABLES Final Resul t Performing Organization Address [facility] Co de Phone Number [facility]) [address] [place] [address] * (ABNORMAL) B-type natriuretic peptide (08/03/2024 5:23 AM EDT) BNP 1,425(H) 0 - 100 pg/mL 08/03/2024 7:37 AM EDT [facility]) Blood Venous blood specimen / Unknown Arterial Line / Unknown 08/03/2024 5:23 AM EDT 08/03/2024 5:46 AM EDT Loren Benito MD LAB BLOOD ORDERABLES Final Res ult [facility] ([facility]) [address] [place] [address] * (ABNORMAL) Lipid panel (08/03/2024 5:23 AM EDT) Triglycerides 61 <150 mg/dL 08/03/2024 6:36 AM EDT [facility] ([facility]) Comment: TRIGLYCERIDE REFERENCE RANGE: 20 YEARS AND OLDER CARDIOVASCULAR RISK LESS THAN 150 mg/dL LOW RISK 150 TO 199 mg/dL BORDERLINE RISK 200 mg/dL AND GREATER HIGH RISK Cholesterol 63(L) 120 - 200 mg/dL 08/03/2024 6:36 AM EDT [facility] ([facility]) LDL Calculated 27 0 - 160 mg/dL 08/03/2024 6:36 AM EDT [facility] ([facility]) HDL 24 23 - 92 mg/dL 08/03/2024 6:36 AM EDT [facility] ([facility]) Non HDL Cholesterol 39 08/03/2024 6:36 AM EDT [facility] ([facility]) Total VLDL-C 12 0 - 40 mg/dL 08/03/2024 6:36 AM EDT [facility] ([facility]) Cholesterol/HDL Ratio 2.6 mg/dL 08/03/2024 6:36 AM EDT [facility] ([facility]) Blood Venous blood specimen / Unknown Arterial Line / Unknown 08/03/2024 5:23 AM EDT 08/03/2024 5:46 AM EDT us Modesto Rodriguez MD LAB BLOOD ORDERABLES Final Re sult [facility] ([facility]) [address] [place] [address] from Last 3 Months Additional Health Concerns Infection Onset Date Last Indicated Parainfluenza Virus 08/04/2024 08/04/2024 Insurance MEDICARE [facility] Advance Directives * Full Code (Latest Code Status on File) Date Activated Date Inactivated Comments 08/09/2024 5:54 PM 08/14/2024 4:36 PM Care Teams Frame Operator Relationship Specialty Start Date End Date Clive Rodríguez DO [address] [place] [phone] PCP - General Family Medicine 08/04/24
--- OUTSIDE RECORDS SUMMARY | 2024-09-08 13:42 | XMS_ITS | Encounter Summary ---
Author Organization [facility] Address [address] [place] [address] Phone Care Team Providers Care Diving Instructor Name Role Phone Clive Rodríguez DO Primary Care Provider [phone] Clive Rodríguez DO Primary Care Provider [phone] Encounter Details Date Type Department Care Team (Late st Contact Info) Description 04/24/2020 Orders Only [facility] [address] [place] [address] Conversion, Onbase Social History Tobacco Use Types [...] on filedocumented in this encounter Care Teams Diving Instructor Relationship Specialty Start Date End Date Clive Rodríguez DO PCP - General 06/29/18 02/16/24 Clive Rodríguez DO [address] [place] [address] PCP - General Family Medicine 02/17/24 documented as of this encounter
--- OUTSIDE RECORDS SUMMARY | 2024-09-08 13:42 | XMS_ITS | Encounter Summary ---
Author Organization [facility] Address [address] [place] [address] Phone Care Team Providers Care Bottom Ironer Name Role Phone Clive Rodríguez DO Primary Care Provider [phone] Clive Rodríguez DO Primary Care Provider [phone] Encounter Details Date Type Department Care Team (Late st Contact Info) Description 05/16/2020 Orders Only [facility] [address] [place] [address] Conversion, Onbase Social History Tobacco Use Types [...] on filedocumented in this encounter Care Teams Bottom Ironer Relationship Specialty Start Date End Date Clive Rodríguez DO PCP - General 06/29/18 02/16/24 Clive Rodríguez DO [address] [place] [address] PCP - General Family Medicine 02/17/24 documented as of this encounter
--- OUTSIDE RECORDS SUMMARY | 2024-09-08 13:42 | XMS_ITS | Referral Summary ---
Author Organization [facility] Address [address] [place] [address] Care Team Providers Care Research Program Internship Name Role Phone Clive Rodríguez DO Primary Care Provider [phone] Encounters Date Type Department Care Team Description 08/22/2024 Orders Only [address] [address] ProviderArely MD 08/22/2024 1:00 PM EDT Follow-Up [facility] [address] [place] [address] Ciro Chappell MD Nonrheumatic aortic valve stenosis (Primary Dx); Chronic systolic congestive heart failure (CMS/HCC); Longstanding persistent atrial fibrillation (CMS/HCC); S/P aortic valve replacement with bioprosthetic valve; Status post insertion of drug eluting coronary artery stent; Coronary artery disease involving cher-ae [place] coronary artery of cher-ae heights heart without angina pectoris; History of coronary artery bypass surgery 08/19/2024 Orders Only [facility] [address] [place] [address] Arely Roy MD 08/03/2024 4:44 AM EDT - 08/14/2024 2:35 PM EDT Hospital Encounter [facility] [address] [place] [id number] Ezra Yi MD Chang, Kyu Chul, MD Rehman, Shahnaz, MD Saad, Hani, MD Spencer, Caleb T, MD NSTEMI (non-ST elevated myocardial infarction) (CMS/HCC) (Primary Dx); Acute on chronic systolic congestive heart failure (CMS/HCC); Paroxysmal atrial fibrillation (CMS/HCC) Discharge Disposition: Half-Way Facility (03) 08/09/2024 2:58 PM EDT - 08/09/2024 4:13 PM EDT Surgery [facility] Vascular Lab [address] [place] [address] Ciro Chappell MD Coronary angiography 08/03/2024 Travel from Last 3 Months Allergies No known active allergies Medications ARIPiprazole [...] versus distributive in nature, resolved Patient required [place] catheter placement with subsequent removal later on due to combination of shock and acute on chronic heart failure with reduced EF Assessment & Plan (08/12/2024 2:55 PM EDT): Likely cardiogenic versus distributive in nature, resolved Patient required [place] catheter placement with subsequent removal later on due to combination of shock and acute on chronic heart failure with reduced EF Assessment & Plan (08/11/2024 2:19 PM EDT): Likely cardiogenic versus distributive in nature, resolved Patient required [place] catheter placement with subsequent removal later on due to combination of shock and acute on chronic heart failure with reduced EF Assessment & Plan (08/10/2024 12:35 PM EDT): Likely cardiogenic versus distributive in nature, resolved Patient required [place] catheter placement with subsequent removal later on due to combination of shock and acute on chronic heart failure with reduced EF Assessment & Plan (08/09/2024 1:46 PM EDT): Likely cardiogenic versus distributive in nature, resolved Patient required [place] catheter placement with subsequent removal later on due to combination of shock and acute on chronic heart failure with reduced EF Assessment & Plan (08/08/2024 8:27 AM EDT): Likely cardiogenic versus distributive in nature, resolved Patient required [place] catheter placement with subsequent removal later on due to combination of shock and acute on chronic heart failure with reduced EF Assessment & Plan (08/07/2024 11:30 AM EDT): Likely cardiogenic versus distributive in nature, resolved Patient required [place] catheter placement with subsequent removal later on due to combination of shock and acute on chronic heart failure with reduced EF Assessment & Plan (08/06/2024 11:18 AM EDT): Likely cardiogenic versus distributive in nature, resolved Patient required [place] catheter placement with subsequent removal later on [...] & Plan (08/07/2024 11:30 AM EDT): Can [place] to CHF exacerbation and shock Patient currently on 3 L nasal cannula Assessment & Plan (08/06/2024 11:18 AM EDT): Can [place] to CHF exacerbation and shock Patient currently [...] use 05/25/2023 Atherosclerosis of coronary artery of cher-ae [place] heart without angina pectoris 02/10/2023 Erosive gastritis [...] drink = 0.6 oz pur e alcohol) [facility] Utilities Answer Date Recorded In the past 12 months has th e electric, gas, oil, or water company threatened to shut off services in your [...] file 08/03/2024 Housing Stability Vital Sign Answer Malachi e Recorded In the last 12 months, was t here a time when you were not able to pay the mortgage or rent on time? No 08/03/2024 Number of Times Moved in the Last Year Not on fi le 08/03/2024 At any time in the [facility] were you homeless or living in a correction (including now)? No 08/03/2024 Hunger Vital Sign [...] Description 10/10/2024 10:15 AM EDT Office Visit [facility] [address] [place] [address] Ciro Chappell MD [address] [facility] [address] [place] [address] Medical Devices Implanted Type Area Marketing Intelligence Analyst Device Identifier Shelf Expiration Date Model / Serial / Lot Stent,Synergy Mr 3.50 X 24 - [id number] Implanted:Qty : 1 on 08/09/2024 by Ciro Chappell MD at [facility] Drug Eluting Stent N/A: Heart [employer] [id number] 02/14/2026 [id number] / / [id number] Procedures Procedure Name Priority Date/Time Associated Diagnosis [...] included. Blood Venous blood specimen / Unknown Historical Provider MD LAB BLOOD ORDERABLES Yokasta l Result * Comprehensive metabolic panel (08/22/2024 1:50 PM EDT) Only the most recent of2 resultswithin the time period is included. Blood Venous blood specimen / Unknown Historical Provider MD LAB BLOOD ORDERABLES Yokasta l Result * Basic metabolic panel (08/22/2024 1:50 PM EDT) Only the most recent of8 resultswithin the time period is included. Blood Venous blood specimen / Unknown Arely Provider LAB BLOOD ORDERABLES Yokasta l Result * (ABNORMAL) POCT glucose meter (08/14/2024 11:44 AM EDT) Only the most recent of24 resultswithin the time period is included. Glucose POC 360(H) 70 - 105 mg/dL 08/14/2024 11:55 AM EDT [facility] ([facility]) Comment:[email or web address] Blood Capillary blood specimen / Unknown 08/14/2024 11:44 AM EDT 08/14/2024 11:55 AM EDT Narrative [facility] ([facility]) - 08/14/2024 11:55 AM EDT Waived Testing in the ED is performed under the ED CLIA certificate #[id number]. Elyse Gunn MD LAB BLOOD ORDERABLES Final Resul t [facility] ([facility]) [address] [id number] * (ABNORMAL) Protime-INR - Daily (08/14/2024 3:31 AM EDT) Only the most recent of6 resultswithin the time period is included. Protime 17.8(H) 12.3 - 14.8 Seconds 08/14/2024 4:25 AM EDT [facility] ([facility]) INR 1.49(H) 0.90 - 1.10 08/14/2024 4:25 AM EDT [facility]) Comment: ACCCP RECOMMENDED INR FOR WARFARIN THERAPY [...] 3:31 AM EDT 08/14/2024 3:59 AM EDT Elyse Gunn MD LAB BLOOD ORDERABLES Final Resul t Performing Organization Address City/[facility]/ZIP Co de Phone Number [facility] ([facility]) [address] [place] [address] * Transfuse RBC (08/12/2024 7:58 PM EDT) Only the most recent of3 resultswithin the time period is included. Charles Zheng MD BLOOD TRANSFUSION ORDERABLES Final Result * Prepare RBC (08/12/2024 8:31 AM EDT) Only the most recent of5 resultswithin the time period is included. PRODUCT CODE [id number] [facility] BL OOD BANK Unit Number [id number] [facility] BLOOD BANK Unit ABO O [facility] BLOOD B[facility] Unit Rh POS [facility] BLOOD BANK Crossmatch Interpretation COMP [facility] BLOOD BANK Dispense Status TR [facility] BLOOD BANK Blood Expiration Date [id number] [facility] BLOOD BANK Product Blood Type 5100 [facility] BLOOD BANK Unit Volume 300 ML [facility] BLO OD BANK 08/12/2024 8:31 AM EDT us Elyse Gunn MD BLOOD BANK PRODUCT ORDERABLES Fi nal Result [facility] BLOOD BANK * Type and screen (08/12/2024 7:44 AM EDT) Only the most recent of2 resultswithin the time period is included. ABO Grouping O 08/12/2024 9:11 AM EDT [facility] BLOOD BANK Rh Type POS 08/12/2024 9:11 AM EDT [facility] BLOOD BANK Ab Scrn NEG 08/12/2024 9:11 AM EDT [facility] BLOOD BANK Blood Venous blood specimen / Unknown Venipuncture / Unknown 08/12/2024 7:44 AM EDT 08/12/2024 8:20 AM EDT us Charles Zheng MD LAB BLOOD BANK TEST ORDERABL ES Final Result [facility] BLOOD BANK * XR chest 1 view [...] Hold for add-ons. 08/12/2024 7:01 AM EDT [facility] ([facility]) Comment:Auto resulted. Blood Venous blood specimen / Unknown Venipuncture / Unknown 08/12/2024 4:26 AM EDT 08/12/2024 5:03 AM EDT us Elyse Gunn MD LAB BLOOD ORDERABLES Final Resul t Performing Organization Address City/[facility] Co de Phone Number [facility]) [address] [place] [address] * Red Top (08/10/2024 11:59 AM EDT) Only the most recent of2 resultswithin the time period is included. Extra Tube Hold for add-ons. 08/10/2024 2:01 PM EDT [facility] ([facility]) Comment:Auto resulted. Blood Venous blood specimen / Unknown 08/10/2024 11:59 AM EDT 08/10/2024 12:06 PM EDT us Elyse Gunn MD LAB BLOOD ORDERABLES Final Resul t Performing Organization Address City/[facility] Co de Phone Number [facility]) [address] [place] [phone] * Anti-Xa (Heparin Level) (08/10/2024 11:59 AM EDT) Only the most recent of14 resultswithin the time period is included. Anti-Xa (Heparin) 0.50 0.3 - 0.7 IU/mL 08/10/2024 12:28 PM EDT [facility]) Comment:Rivaroxaban and Apix aban will interfere with the anti Xa assay used to monitor UFH and LMWH. Blood Venous blood specimen / Unknown Venipuncture / Unknown 08/10/2024 11:59 AM EDT 08/10/2024 12:06 PM EDT Ciro Chappell MD LAB BLOOD ORDERABLES Final R esult Performing Organization Address [facility] Co de Phone Number [facility]) [address] [place] [address] * Lavender Top (08/10/2024 9:26 AM EDT) [facility] Extra Tube Hold for add-ons. 08/10/2024 11:01 AM EDT [facility] ([facility]) Comment:Auto resulted. Blood Venous blood specimen / Unknown 08/10/2024 9:26 AM EDT 08/10/2024 9:26 AM EDT Elyse Gunn MD LAB BLOOD ORDERABLES Final Resul t Performing Organization Address [facility] de Phone Number [facility]) [address] [place] [address] * Lactic acid with 4 hour reflex (08/10/2024 5:41 AM EDT) Only the most recent of3 resultswithin the time period is included. [facility] Lactate 0.8 0.5 - 2.2 mmol/L 08/10/2024 6:30 AM EDT [facility]) Blood Venous blood specimen / Unknown Venipuncture / Unknown 08/10/2024 5:41 AM EDT 08/10/2024 5:46 AM EDT Elyse Gunn MD LAB BLOOD ORDERABLES Final Resul t Performing Organization Address [facility] Co de Phone Number [facility]) [address] [place] [address] * ECG 12 lead (08/09/2024 8:49 PM EDT) Only the most recent of7 resultswithin the time period is included. Pathologist [facility] Ventricular Rate 65 BPM GE MUSE QRS DURATION 140 ms GE MUSE QT Interval 458 ms GE MUSE QTC CALCULATION(BAZE TT) 476 ms GE MUSE R-[place] -17 degrees GE MUSE T Wave [place] 157 degrees GE MUSE 08/09/2024 8:01 PM [...] Ciro Chappell MD ECG ORDERABLES Final Result GE MUSE * CORONARY ANGIOGRAPHY, RIGHT HEART CATH, PERC CORONARY INTERVENTION, CORONARY BYPASS GRAFT STUDY (08/09/2024 5:56 PM EDT) Anatomical Region Laterality Modality Other Narrative 08/09/2024 6:06 PM EDT PROCEDURE PHYSICIAN: Ciro Chappell MD . Indications: Johnathan Greer is a 89 y.o. male who has a history of coronary artery disease status post bypass surgery with BALDWNI to LAD in the past, also status [...] informed consent. he was brought to the boat laborer in a fasting state. The right groin area was prepped and draped in usual fashion. Micropuncture technique was used under ultrasound guidance for access in the right common femoral artery. Inner cannular angiography was performed followed by upsizing to a 6-Honduran x 11 cm sheath. Micropuncture technique was used under ultrasound guidance for access in the right common femoral vein and a 6-Honduran x 11 cm sheath was placed. A 6-Honduran Kemp catheter was used for right heart catheterization and measurement of pressures and calculation of cardiac output using the estimated Lidia method. Kemp catheter was removed. Bilateral selective coronary angiography was then performed using 6-Honduran JL4 and JR4 diagnostic catheters. Catheters were removed. A 6-Honduran IM diagnostic catheter was used to selectively engage the left subclavian artery and then selectively engage the left internal mammary artery. Heparin was administered intravenously and therapeutic ACT was confirmed during the rest of the procedure. A 6-Honduran JR4 guiding catheter was advanced and used to engage the right coronary ostium. Baseline RENEE flow was 3. A Appistry coronary guide wire was advanced to the [...] guiding catheter and wire were removed. A 6-Honduran JL4 guiding catheter was advanced and used to engage the left coronary ostium. Baseline RENEE flow was 3. A Appistry coronary guide wire was advanced to the [...] of3 resultswithin the time period is included. 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 Result [facility] Elyse Gunn MD POINT OF CARE TEST ENTER/EDIT OR DERABLES Final Result * (ABNORMAL) POC Hb02% (08/09/2024 4:28 PM EDT) [facility] [id number]% 42.0(A) 90 - 95 % QC Pass/Fail Passed QC LOT # [id number] QC Expiration Date 73,126 SAMPLESITE nl Blood Venous blood specimen / Unknown 08/09/2024 4:28 PM EDT Narrative Saud [place], [place] - 08/10/2024 9:34 AM EDT Bench As[employer] 3855 Result [facility] Elyse Gunn MD POINT OF CARE TEST ENTER/EDIT OR DERABLES Final Result * Phosphorus (08/07/2024 3:13 AM EDT) Only the most recent of5 resultswithin the time period is included. [facility] Phosphorus 3.1 2.5 - 5.0 mg/dL 08/07/2024 3:57 AM EDT [facility] ([facility]) Blood Venous blood specimen / Unknown Venipuncture / Unknown 08/07/2024 3:13 AM EDT 08/07/2024 3:34 AM EDT Loren Benito MD LAB BLOOD ORDERABLES Final Res ult Performing Organization Address City/[facility]/ZIP Co de Phone Number [facility] ([facility]) [address] [place] [address] * Magnesium (08/07/2024 3:13 AM EDT) Only the most recent of5 resultswithin the time period is included. Magnesium 2.0 1.9 - 2.7 mg/dL 08/07/2024 3:57 AM EDT [facility] ([facility]) Blood Venous blood specimen / Unknown Venipuncture / Unknown 08/07/2024 3:13 AM EDT 08/07/2024 3:34 AM EDT Loren Benito MD LAB BLOOD ORDERABLES Final Res ult Performing Organization Address [facility] Co de Phone Number [facility] ([facility]) [address] [place] [address] * (ABNORMAL) Hemoglobin and hematocrit, blood (08/05/2024 11:42 PM EDT) Only the most recent of2 resultswithin the time period is included. Hemoglobin 9.6(L) 13.0 - 17.0 g/dL 08/06/2024 1:11 AM EDT [facility] ([facility]) Hematocrit 32.6(L) 39.0 - 50.0 % 08/06/2024 1:11 AM EDT [facility]) Blood Venous blood specimen / Unknown Venipuncture / Unknown 08/05/2024 11:42 PM EDT 08/06/2024 12:30 AM EDT us Loren Benito MD LAB BLOOD ORDERABLES Final Res ult [facility] ([facility]) [address] [place] [address] * Co-oximetry (08/05/2024 3:30 AM EDT) Only the most recent of3 resultswithin the time period is included. Carboxyhemoglobin 1.4 % 025 3:32 AM EDT [facility] RESPIRATORY THERAPY Methemoglobin 0.1 0.0 - 1.5 % 08/05/2024 3:32 AM EDT [facility] RESPIRATORY THERAPY Oxyhemoglobin 64.4 % 08/05/2024 3:32 AM EDT [facility] RESPIRATORY THERAPY Total Hemoglobin 5.9 g/dL 08/06/19 3:32 AM EDT [facility] RESPIRATORY THERAPY O2 Sat 65.4 % 08/05/2024 3:32 AM EDT [facility] RESPIRATORY THERAPY Blood Mixed venous blood specimen / Unknown Arterial Line / Unknown 08/05/2024 3:30 AM EDT 08/05/2024 3:30 AM EDT us Loren Benito MD LAB BLOOD ORDERABLES Final Res ult [facility] RESPIRATORY THERAPY [address] [place] [address], * (ABNORMAL) Respiratory virus PCR panel (08/04/2024 1:01 PM EDT) Pathologist [facility] Adenovirus Not Detected Not Detected 08/04/2024 2:10 PM EDT [facility] ([facility]) Bordetella pertussis Not Detected Not Detected 08/04/2024 2:10 PM EDT [facility] ([facility]) Bordetella parapertussis Not Detected Not Detected 08/04/2024 2:10 PM EDT [facility] ([facility]) Chlamydia pneumoniae Not Detected Not Detected 08/04/2024 2:10 PM EDT [facility] ([facility]) Coronavirus 229E Not Detected Not Detected 08/04/2024 2:10 PM EDT [facility] ([facility]) Coronavirus HKU1 Not Detected Not Detected 08/04/2024 2:10 PM EDT [facility] ([facility]) Coronavirus NL63 Not Detected Not Detected 08/04/2024 2:10 PM EDT [facility] ([facility]) Coronavirus OC43 Not Detected Not Detected 08/04/2024 2:10 PM EDT [facility] ([facility]) Human Metapneumovirus Not Detected Not Detected 08/04/2024 2:10 PM EDT [facility] ([facility]) Human Rhinovirus + Enterovirus Not Detected Not Detected 08/04/2024 2:10 PM EDT [facility] ([facility]) Influenza A Not Detected Not Detected 08/04/2024 2:10 PM EDT [facility] ([facility]) Influenza B Not Detected Not Detected 08/04/2024 2:10 PM EDT [facility] ([facility]) Mycoplasma pneumoniae Not Detected Not Detected 08/04/2024 2:10 PM EDT [facility] ([facility]) Parainfluenza 1 Not Detected Not Detected 08/04/2024 2:10 PM EDT [facility] ([facility]) Parainfluenza 2 Not Detected Not Detected 08/04/2024 2:10 PM EDT [facility] ([facility]) Parainfluenza 3 Detected(A) Not Detected 08/04/2024 2:10 PM EDT [facility] ([facility]) Parainfluenza 4 Not Detected Not Detected 08/04/2024 2:10 PM EDT [facility] ([facility]) Respiratory Syncytial Virus Not Detected Not Detected 08/04/2024 2:10 PM EDT [facility] ([facility]) SARS-CoV-2 Not Detected Not Detected 08/04/2024 2:10 PM EDT [facility] ([facility]) Swab Nasopharyngeal structure / Unknown Non-blood Collection / Unknown 08/04/2024 1:01 PM EDT 08/04/2024 1:05 PM EDT Narrative [facility] ([facility]) - 08/04/2024 2:10 PM EDT Testing methodology is a multiplexed nucleic acid test intended for the simultaneous qualitative detection and differentiation of nucleic acids from multiple viral and bacterial respiratory organisms in nasopharyngeal swabs (MEDICAL CLERK). us Loren Benito MD LAB MICROBIOLOGY - GENERAL ORD ERABLES Final Result [facility] ([facility]) [address] [place] [address] * SARS-CoV-2 PCR (08/04/2024 11:17 AM EDT) SARS-CoV-2 PCR Negative Negative 08/04/2024 12:25 PM EDT [facility] ([facility]) Swab Nasal structure / Unknown Non-blood Collection / Unknown 08/04/2024 11:17 AM EDT 08/04/2024 11:22 AM EDT Narrative [facility] ([facility]) - 08/04/2024 12:25 PM EDT Testing methodology utilizes isothermal nucleic acid amplification technology for the differential and qualitative detection of SARS-CoV-2 viral nucleic acids. Testing methodology utilizes isothermal nucleic acid amplification technology for the differential and qualitative detection of SARS-CoV-2 viral nucleic acids. us Loren Benito MD LAB MICROBIOLOGY - GENERAL ORD ERABLES Final Result Performing Organization Address [facility] Co de Phone Number [facility]) [address] [place] [address] * Rapid influenza A/B PCR (08/04/2024 11:17 AM EDT) Pathologist [facility] Rapid Influenza A PCR Negative Negative 08/04/2024 12:25 PM EDT [facility] ([facility]) Rapid Influenza B PCR Negative Negative 08/04/2024 12:25 PM EDT [facility] ([facility]) Swab Nasal structure / Unknown Non-blood Collection / Unknown 08/04/2024 11:17 AM EDT 08/04/2024 11:22 AM EDT Narrative [facility] ([facility]) - 08/04/2024 12:25 PM EDT Testing [...] ORD ERABLES Final Result Performing Organization Address City/[facility]/ZIP Co de Phone Number [facility] ([facility]) [address] [place] [address] * (ABNORMAL) Arterial blood gas with ionized calcium (08/04/2024 11:00 AM EDT) pH, Arterial 7.40 7.35 - 7.45 pH 08/04/2024 11:02 AM EDT [facility] RESPIRATORY THERAPY pCO2, Arterial 35 35 - 48 mmHg 08/04/2024 11:02 AM EDT [facility] RESPIRATORY THERAPY pO2, Arterial 122(H) 83 - 100 mmHg 08/04/2024 11:02 AM EDT [facility] RESPIRATORY THERAPY HCO3, Arterial 21.7 21.0 - 28.0 mEq/L 08/04/2024 11:02 AM EDT [facility] RESPIRATORY THERAPY Calcium, Ion 1.21 1.15 - 1.33 mmol/L 08/04/2024 11:02 AM EDT [facility] RESPIRATORY THERAPY O2 Sat, Arterial 98.9(H) 94.0 - 98.0 % 08/04/2024 11:02 AM EDT [facility] RESPIRATORY THERAPY Base Excess, Arterial -2.5(L) -2.0 - 3.0 mmol/L 08/04/2024 11:02 AM EDT [facility] RESPIRATORY THERAPY Source Of Oxygen High flow nasal cannula 08/04/2024 11:02 AM EDT [facility] RESPIRATORY THERAPY FiO2 35 % 08/04/2024 11:02 AM EDT [facility] RESPIRATORY THERAPY LPM 40 08/04/2024 11:02 AM EDT [facility] RESPIRATORY THERAPY Blood Arterial blood specimen / Unknown Arterial Line / Unknown 08/04/2024 11:00 AM EDT 08/04/2024 11:01 AM EDT us Loren Benito MD LAB BLOOD ORDERABLES Final Res ult [facility] RESPIRATORY THERAPY [address] [place] [address], [place] * (ABNORMAL) HIGH SENSITIVITY TROPONIN I (08/04/2024 3:05 AM EDT) Only the most recent of2 resultswithin the time period is included. High Sensitivity Troponin I 289(HH) <20 ng/L 08/04/2024 4:27 AM EDT [facility] ([facility]) Blood Venous blood specimen / Unknown Arterial Line / Unknown 08/04/2024 3:05 AM EDT 08/04/2024 3:44 AM EDT Loren Benito MD LAB BLOOD ORDERABLES Final Res ult [facility] ([facility]) [address] [place] [address] * Blood culture, peripheral #2 (08/03/2024 5:46 PM EDT) Only the most recent of2 resultswithin the time period is included. Blood Culture No growth at 5 days MARY 08/08/2024 7:01 PM EDT [facility] ([facility]) Blood Venous blood specimen / Unknown Venipuncture / Unknown 08/03/2024 5:46 PM EDT 08/03/2024 6:11 PM EDT Loren Benito MD LAB MICROBIOLOGY - GENERAL ORD ERABLES Final Result Performing Organization Address City/[facility]/ZIP Co de Phone Number [facility] ([facility]) [address] [place] [address] * COMPLETE ECHO (TTE) W/ IMAGING AGENT (08/03/2024 11:25 AM EDT) Anatomical Region Laterality Modality Other 08/03/2024 10:1 1 AM EDT Narrative 08/03/2024 1:03 PM EDT 1 1 [facility] Heart Station [address] [place] [address] [phone] (fax) Echocardiogram-[facility] Name: JOHNATHAN GREER Study Date: 08/03/2024 10:11 AM B/P: 99 mmHg/43 mmHg HR: 57 bpm Date of : 1935 Location: [facility] Height: 71 in. Age: 89 year(s) Patient Room: 323 Weight: 205 lb. Gender: Male Patient Status: [...] pattern). Left Ventricular Measurements LV Mass, 2D [place]: 331 g. LV Mass Index, 2D [place]: 155.4 g/m2. Right Ventricle: Right ventricle is [...] No pericardial effusion. Procedure Staff Reading Group: [facility] Referring Physician: EZRA YI Seafood Fisherman: MADELINE Alicea Ordering Physician: TAM ACUNA Procedure Note Gertrudis Lafleur MD - 08/03/2024 1 1 [facility] Heart Station [address] [place] [address] [phone] (fax) Echocardiogram-[facility] Name: JOHNATHAN GREER Study Date: 08/03/2024 10:11 AM B/P: 99 mmHg/43 mmHg HR: 57 bpm Date of : 1935 Location: [facility] Height: 71 in. Age: 89 year(s) Patient [...] pattern). Left Ventricular Measurements LV Mass, 2D [place]: 331 g. LV Mass Index, 2D [place]: 155.4 g/m2. Right Ventricle: Right ventricle is [...] No pericardial effusion. Procedure Staff Reading Group: [facility] Referring Physician: EZRA YI Seafood Fisherman: Nyasia Hanks [facility] Ordering Physician: TAM ACUNA Tam Acuna MD CV ECHO PROCEDURES Final R esult * Potassium, whole blood (08/03/2024 10:00 AM EDT) Potassium, Whole Blood 4.4 3.5 - 5.1 mmol/L 08/03/2024 10:01 AM EDT [facility] RES[facility]IRAT[facility] THERAPY Blood Arterial blood specimen / Unknown Arterial Puncture / Unknown 08/03/2024 10:00 AM EDT 08/03/2024 10:00 AM EDT Edward Salomon MD LAB BLOOD ORDERABLES Final Res ult Performing Organization Address City/[facility]/ZIP Co de Phone Number [facility] RESPIRATORY THERAPY [address] [place] [address], [place] * Sodium, whole blood (08/03/2024 10:00 AM EDT) Sodium, Whole Blood 137 136 - 145 08/03/2024 10:01 AM EDT [facility] RES[facility]IR[facility] THERAPY Blood Arterial blood specimen / Unknown Arterial Puncture / Unknown 08/03/2024 10:00 AM EDT 08/03/2024 10:00 AM EDT us Edward Salomon MD LAB BLOOD ORDERABLES Final Res ult Performing Organization Address City/[facility]/ZIP Co de Phone Number [facility] RESPIRATORY [facility] [address] [place] [address], [place] * Calcium, ionized (08/03/2024 10:00 AM EDT) Calcium, Ion 1.26 1.15 - 1.33 mmol/L 08/03/2024 10:01 AM EDT [facility] RES[facility]IRATORY THERAPY Blood Arterial blood specimen / Unknown Arterial Puncture / Unknown 08/03/2024 10:00 AM EDT 08/03/2024 10:00 AM EDT us Edward Salomon MD LAB BLOOD ORDERABLES Final Res ult [facility] RESPIRATORY THERAPY [address] [place] [address], [place] * (ABNORMAL) Arterial blood gas with co-oximetry (08/03/2024 10:00 AM EDT) pH, Arterial 7.36 7.35 - 7.45 pH 08/03/2024 10:02 AM EDT [facility] RESPIRATORY THERAPY pCO2, Arterial 40 35 - 48 mmHg 08/03/2024 10:02 AM EDT [facility] RESPIRATORY THERAPY pO2, Arterial 174(H) 83 - 100 mmHg 08/03/2024 10:02 AM EDT [facility] RESPIRATORY THERAPY HCO3, Arterial 22.6 21.0 - 28.0 mEq/L 08/03/2024 10:02 AM EDT [facility] RESPIRATORY THERAPY Total Hemoglobin 9.6(L) 11.7 - 17.4 g/dL 08/03/2024 10:02 AM EDT [facility] RESPIRATORY THERAPY O2 Sat, Arterial 98.8(H) 94.0 - 98.0 % 08/03/2024 10:02 AM EDT [facility] RESPIRATORY THERAPY Carboxyhemoglobin 0.7 0.0 - 3.0 % 08/03/2024 10:02 AM EDT [facility] RESPIRATORY THERAPY Methemoglobin 0.0 0.0 - 1.5 % 08/03/2024 10:02 AM EDT [facility] RESPIR[facility]ORY THERAPY Deoxyhemoglobin 1.2 1 - 5 % 10:02 AM EDT [facility] RESPIR[facility]ORY THERAPY Base Excess, Arterial -2.6(L) -2.0 - 3.0 mmol/L 08/03/2024 10:02 AM EDT [facility] RESPIRATORY THERAPY Source Of Oxygen Bi-PAP 08/04/19 10:02 AM EDT [facility] RESPIR[facility]ORY THERAPY FiO2 50 % 08/03/2024 10:02 AM EDT [facility] RESPIRATORY THERAPY PEEP 6 cmH2O 08/03/2024 10:02 AM EDT [facility] RESPIRATORY THERAPY Pressure Support 12 08/04/19 10:02 AM EDT [facility] RESPIRATORY THERAPY Oxyhemoglobin 98.1(H) 90.0 - 95.0 % 08/03/2024 10:02 AM EDT [facility] RESPIRATORY THERAPY Blood Arterial blood specimen / Unknown Arterial Puncture / Unknown 08/03/2024 10:00 AM EDT 08/03/2024 10:00 AM EDT us Edward Salomon MD LAB BLOOD ORDERABLES Final Res ult Performing Organization Address City/[facility]/ZIP Co de Phone Number [facility] RESPIRATORY THERAPY [address] [place] [address], [place] * TSH3 Reflex to FT4 (08/03/2024 5:23 AM EDT) TSH 2.31 0.34 - 5.60 mIU/L 08/03/2024 6:36 AM EDT [facility] ([facility]) Blood Venous blood specimen / Unknown Arterial Line / Unknown 08/03/2024 5:23 AM EDT 08/03/2024 5:46 AM EDT us Modesto Rodriguez MD LAB BLOOD ORDERABLES Final Re sult [facility] ([facility]) [address] [place] [address] * (ABNORMAL) CBC auto differential (08/03/2024 5:23 AM EDT) Auto WBC 7.83 4.00 - 10.60 10*3/uL 08/03/2024 6:02 AM EDT [facility] ([facility]) RBC 3.00(L) 4.20 - 5.70 10*6/uL 08/03/2024 6:02 AM [facility] ([facility]) Hemoglobin 9.0(L) 13.0 - 17.0 g/dL 08/03/2024 6:02 AM [facility] ([facility]) Hematocrit 30.1(L) 39.0 - 50.0 % 08/03/2024 6:02 AM [facility] ([facility]) MCV 100.3(H) 82.0 - 98.0 fL 08/03/2024 6:02 AM [facility] ([facility]) MCH 30.0 27.0 - 33.0 pg 08/03/2024 6:02 AM [facility] ([facility]) MCHC 29.9(L) 32.0 - 35.0 g/dL 08/03/2024 6:02 AM [facility] ([facility]) RDW 15.9(H) 11.5 - 15.0 % 08/03/2024 6:02 AM [facility] ([facility]) Neutrophils % 86.6(H) 40.0 - 72.0 % 08/03/2024 6:02 AM [facility] ([facility]) Lymphocytes % 6.1(L) 20.0 - 45.0 % 08/03/2024 6:02 AM [facility] ([facility]) Monocytes % 6.3 5.0 - 12.0 % 08/03/2024 6:02 AM [facility] ([facility]) Eosinophils % 0.0 0.0 - 6.0 % 08/03/2024 6:02 AM [facility] ([facility]) Basophils % 0.4 0.0 - 1.0 % 08/03/2024 6:02 AM [facility] ([facility]) Neutrophils Absolute 6.78 1.60 - 7.60 10*3/uL 08/03/2024 6:02 AM [facility] ([facility]) Lymphocytes Absolute 0.48(L) 1.20 - 4.00 10*3/uL 08/03/2024 6:02 AM [facility] ([facility]) Monocytes Absolute 0.49 0.10 - 1.00 10*3/uL 08/03/2024 6:02 AM EDT [facility] ([facility]) Eosinophils Absolute 0.00 0.00 - 0.50 10*3/uL 08/03/2024 6:02 AM EDT [facility] ([facility]) Basophils Absolute 0.03 0.00 - 0.20 10*3/uL 08/03/2024 6:02 AM EDT [facility] ([facility]) Platelets 116(L) 150 - 400 10*3/uL 08/03/2024 6:02 AM EDT [facility] ([facility]) nRBC % 0.0 0 % 08/03/2024 6:02 AM EDT [facility] ([facility]) Immature Granulocytes % 0.6 0.0 - 1.0 % 08/03/2024 6:02 AM EDT [facility]) Immature Granulocytes Absolute 0.05 0.00 - 0.20 10*3/uL 08/03/2024 6:02 AM EDT [facility] ([facility]) Immature Platelet Fraction % 4.0 0.8 - 6.3 % 08/03/2024 6:02 AM EDT [facility] ([facility]) Blood Venous blood specimen / Unknown Arterial Line / Unknown 08/03/2024 5:23 AM EDT 08/03/2024 5:46 AM EDT zEra Yi MD LAB BLOOD ORDERABLES Final Resul t [facility]) [address] [place] [address] * (ABNORMAL) APTT (08/03/2024 5:23 AM EDT) aPTT 39.4(H) 25.0 - 35.0 Seconds 08/03/2024 6:11 AM EDT [facility]) Comment:Clinical significanc e of the APTT is questionable in the presence of heparin. Blood Venous blood specimen / Unknown Arterial Line / Unknown 08/03/2024 5:23 AM EDT 08/03/2024 5:31 AM EDT us Ezra Yi MD LAB BLOOD ORDERABLES Final Resul t [facility]) [address] [place] [address] * (ABNORMAL) B-type natriuretic peptide (08/03/2024 5:23 AM EDT) BNP 1,425(H) 0 - 100 pg/mL 08/03/2024 7:37 AM EDT [facility] ([facility]) Blood Venous blood specimen / Unknown Arterial Line / Unknown 08/03/2024 5:23 AM EDT 08/03/2024 5:46 AM EDT us Loren Benito MD LAB BLOOD ORDERABLES Final Res ult Performing Organization Address City/[facility]/ZIP Co de Phone Number [facility]) [address] [place] [address] * (ABNORMAL) Lipid panel (08/03/2024 5:23 AM EDT) Triglycerides 61 <150 mg/dL 08/03/2024 6:36 AM EDT [facility] ([facility]) Comment: TRIGLYCERIDE REFERENCE RANGE: 20 YEARS AND OLDER CARDIOVASCULAR RISK LESS THAN 150 mg/dL LOW RISK 150 TO 199 mg/dL BORDERLINE RISK 200 mg/dL AND GREATER HIGH RISK Cholesterol 63(L) 120 - 200 mg/dL 08/03/2024 6:36 AM EDT [facility] ([facility]) LDL Calculated 27 0 - 160 mg/dL 08/03/2024 6:36 AM EDT [facility] ([facility]) HDL 24 23 - 92 mg/dL 08/03/2024 6:36 AM EDT [facility] ([facility]) Non HDL Cholesterol 39 08/03/2024 6:36 AM EDT [facility] ([facility]) Total VLDL-C 12 0 - 40 mg/dL 08/03/2024 6:36 AM EDT [facility] ([facility]) Cholesterol/HDL Ratio 2.6 mg/dL 08/03/2024 6:36 AM EDT [facility] ([facility]) Blood Venous blood specimen / Unknown Arterial Line / Unknown 08/03/2024 5:23 AM EDT 08/03/2024 5:46 AM EDT us Modesto Rodriguez MD LAB BLOOD ORDERABLES Final Re sult [facility] ([facility]) [address] [place] [address] from Last 3 Months Additional Health Concerns Infection Onset Date Last Indicated Parainfluenza Virus 08/04/2024 08/04/2024 Insurance MEDICARE [facility] Advance Directives * Full Code (Latest Code Status on File) Date Activated Date Inactivated Comments 08/09/2024 5:54 PM 08/14/2024 4:36 PM Care Teams Research Program Internship Relationship Specialty Start Date End Date Clive Rodríguez DO [address] [place] [id number] PCP - General Family Medicine 08/04/24
--- OUTSIDE RECORDS SUMMARY | 2024-09-08 13:42 | XMS_ITS | Encounter Summary ---
Author Organization [facility] Address [address] [place] [address] Phone Care Team Providers Care Steel Unloader Name Role Phone Clive Rodríguez DO Primary Care Provider [phone] Encounter Details Date Type Department Care Team (Late st Contact Info) Description 07/15/2024 Scanned Document [facility] [address] [place] [id number] Scanning, Generic Provider Social History Tobacco Use [...] documented as of this encounter Care Teams Steel Unloader Relationship Specialty Start Date End Date Clive Rodríguez DO [address] [place] [address] PCP - General Family Medicine 02/17/24 documented as of this encounter
--- OUTSIDE RECORDS SUMMARY | 2024-09-08 13:42 | XMS_ITS | Encounter Summary ---
Author Organization [facility] Address [address] [place] [address] Phone Care Team Providers Care Salesperson Burial Plots Name Role Phone Clive Rodríguez DO Primary Care Provider [phone] Encounter Details Date Type Department Care Team (Late st Contact Info) Description 06/28/[address] [facility] [address] [place] [phone] Scanning, Generic Provider Social History Tobacco Use [...] documented as of this encounter Care Teams Salesperson Burial Plots Relationship Specialty Start Date End Date Clive Rodríguez DO [address] [place] [address] PCP - General Family Medicine 02/17/24 documented as of this encounter
--- OUTSIDE RECORDS SUMMARY | 2024-09-08 13:42 | XMS_ITS | Encounter Summary ---
Author Organization [facility] Address [address] [place] [address] Phone Care Team Providers Care Travel Coordinator Name Role Phone Clive Rodríguez DO Primary Care Provider [phone] Clive Rodríguez DO Primary Care Provider [phone] Encounter Details Date Type Department Care Team (Late st Contact Info) Description 05/14/2020 Orders Only [facility] [address] [place] [address] Conversion, Onbase Social History Tobacco Use Types [...] on filedocumented in this encounter Care Teams Travel Coordinator Relationship Specialty Start Date End Date Clive Rodríguez DO PCP - General 06/29/18 02/16/24 Clive Rodríguez DO [address] [place] [address] PCP - General Family Medicine 02/17/24 documented as of this encounter
--- OUTSIDE RECORDS SUMMARY | 2024-09-08 13:42 | XMS_ITS | Encounter Summary ---
Author Organization [facility] Address [address] [place] [address] Phone Care Team Providers Care Linker Up Name Role Phone Clive Rodríguez DO Primary Care Provider [phone] Clive Rodríguez DO Primary Care Provider [phone] Encounter Details Date Type Department Care Team (Late st Contact Info) Description 03/26/2020 Orders Only [facility] [address] [place] [address] Conversion, Onbase Social History Tobacco Use Types [...] on filedocumented in this encounter Care Teams Linker Up Relationship Specialty Start Date End Date Clive Rodríguez DO PCP - General 06/29/18 02/16/24 Clive Rodríguez DO [address] [place] [address] PCP - General Family Medicine 02/17/24 documented as of this encounter
--- OUTSIDE RECORDS SUMMARY | 2024-09-08 13:42 | XMS_ITS | Encounter Summary ---
Author Organization [facility] Address [address] [place] [address] Phone Care Team Providers Care Continuity Clerk Name Role Phone Clive Rodríguez DO Primary Care Provider [phone] Encounter Details Date Type Department Care Team (Late st Contact Info) Description 06/21/2024 Scanned Document [facility] [address] [place] [phone] Scanning, Generic Provider Social History Tobacco Use [...] documented as of this encounter Care Teams Continuity Clerk Relationship Specialty Start Date End Date Clive Rodríguez DO [address] [place] [address] PCP - General Family Medicine 02/17/24 documented as of this encounter
[2024-09-08] MEDS: 0.9 % SODIUM CHLORIDE 1,000 ML 500 ML IV (13:43)
--- OUTSIDE RECORDS SUMMARY | 2024-09-08 13:43 | XMS_ITS | Encounter Summary ---
Author Organization [facility] Address [address] [place] [address] Care Team Providers Care Branch Examiner Name Role Phone Anne Clive Primary Care Provider [phone] Encounter Details Date Type Department Care Team (Late st Contact Info) Description 08/22/2024 Orders Only [facility] [address] [place] [address] Provider, MD Arely [address] [place] [id number] Social History Tobacco Use Types Packs/Day Years Used Date Smoking Tobacco: Never Smokeless Tobacco: Never Alcohol Use Standard Drinks/Week Comments Not Currently 0 (1 standard drink = 0.6 oz pur e alcohol) [facility] Utilities Answer Date Recorded In the past 12 months has e electric, gas, oil, or water company [...] any time in the past 12 m [facility], were you homeless or living in a nursing home (including now)? No 08/03/2024 Hunger Vital Sign [...] Heterosexual or Straight 07/21 6:04 AM EDT documented as of this encounter Plan of Treatment Upcoming Encounters Date Type Department Care Team (Late st Contact Info) Description 10/10/2024 10:15 AM EDT Office Visit [facility] at [place] [address] [place] [address] Ciro Chappell MD [address] [facility] [place] [address] documented as of this encounter Procedures Procedure Name Priority Date/Time Associated Diagnosis Comments CBC Routine 08/22/2024 1:50 PM EDT COMPREHENSIVE METABOLIC PANEL Routine 08/22/2024 1:50 PM EDT BASIC METABOLIC PANEL Routine 08/22/2024 1:50 PM EDT documented in this encounter Results * Basic metabolic panel (08/22/2024 1:50 PM EDT) Blood Venous blood specimen / Unknown us Historical Provider LAB BLOOD ORDERABLES Yokasta l Result * CBC (08/22/2024 1:50 PM EDT) Blood Venous blood specimen / Unknown Historical Provider MD LAB BLOOD ORDERABLES [facility] l Result * Comprehensive metabolic panel (08/22/2024 1:50 PM EDT) Blood Venous blood specimen / Unknown Historical Provider LAB BLOOD ORDERABLES Y[place] l Result documented in this encounter Visit Diagnoses Not on filedocumented in this encounter Additional Health Concerns Infection Onset Date Last Indicated Resolved Time Parainfluenza Virus 08/04/2024 08/04/2024 documented as of this encounter Care Teams Branch Examiner Relationship Specialty Start Date End Date Clive Rodríguez DO [address] [place] [phone] PCP - General Family Medicine 08/04/24 documented as of this encounter
--- OUTSIDE RECORDS SUMMARY | 2024-09-08 13:43 | XMS_ITS ---
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 08/22/2024 Hematuria 08/22/2024 High prostate specific antigen (PSA) 08/22/2024 History of anticoagulant therapy 08/22/2024 Hypertension 08/22/2024 Prostatitis 08/22/2024 Shock 08/06/2024 Assessment & Plan (08/13/2024 3:47 PM EDT): Likely cardiogenic versus distributive in nature, resolved Patient required Warriormine-Jessica catheter placement with subsequent removal later on due to combination of shock and acute on chronic heart failure with reduced EF Assessment & Plan (08/12/2024 2:55 PM EDT): Likely cardiogenic versus distributive in nature, resolved Patient required Warriormine-Jessica catheter placement with subsequent removal later on due to combination of shock and acute on chronic heart failure with reduced EF Assessment & Plan (08/11/2024 2:19 PM EDT): Likely cardiogenic versus distributive in nature, resolved Patient required Warriormine-Jessica catheter placement with subsequent removal later on due to combination of shock and acute on chronic heart failure with reduced EF Assessment & Plan (08/10/2024 12:35 PM EDT): Likely cardiogenic versus distributive in nature, resolved Patient required Warriormine-Jessica catheter placement with subsequent removal later on due to combination of shock and acute on chronic heart failure with reduced EF Assessment & Plan (08/09/2024 1:46 PM EDT): Likely cardiogenic versus distributive in nature, resolved Patient required Warriormine-Jessica catheter placement with subsequent removal later on due to combination of shock and acute on chronic heart failure with reduced EF Assessment & Plan (08/08/2024 8:27 AM EDT): Likely cardiogenic versus distributive in nature, resolved Patient required Warriormine-Jessica catheter placement with subsequent removal later on due to combination of shock and acute on chronic heart failure with reduced EF Assessment & Plan (08/07/2024 11:30 AM EDT): Likely cardiogenic versus distributive in nature, resolved Patient required Warriormine-Jessica catheter placement with subsequent removal later on due to combination of shock and acute on chronic heart failure with reduced EF Assessment & Plan (08/06/2024 11:18 AM EDT): Likely cardiogenic versus distributive in nature, resolved Patient required Warriormine-Jessica catheter placement with subsequent removal later on due to combination of shock and acute on chronic heart failure with reduced EF Acute systolic congestive heart failure 08/07/19 25 Assessment & Plan (08/13/2024 3:50 PM EDT): Echo 08/03 showed EF 25/30% with wall motion abnormality and grade 3 diastolic function X-ray suggestive of bilateral lower lobe airspace disease and moderate right- sided pleural Will hold Lasix for now due to worsening kidney function again of 1.54 creatinine Continue Farxiga Appreciate cardiology input Assessment & Plan (08/12/2024 2:55 PM EDT): Echo 5 showed EF 25/30% with wall motion abnormality [...] & Plan (08/07/2024 11:30 AM EDT): Can Lm to CHF exacerbation and shock Patient currently on 3 L nasal cannula Assessment & Plan (08/06/2024 11:18 AM EDT): Can Lm to CHF exacerbation and shock Patient currently [...] use 05/25/2023 Atherosclerosis of coronary artery of [place] heart without angina pectoris 02/10/2023 Erosive gastritis 02/10/2023 Hernia, hiatal 02/10/2023 History of myocardial infarction 02/10/2023 Hyperlipidemia 02/10/2023 Status post angioplasty 02/10/2023 Prostate cancer 07/11/2020 Hearing loss 04/17/2004 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 Past Treatment and Therapy Plans No past plan information found. Lifetime Dose Tracking * Chemical Lifetime Dose Automatic Entry Manual Entr y Fluoro Time 22.2 minutes 0 minutes 22.2 minutes Air Kerma 1,537 mGy 0 mGy 1,537 mGy
[2024-09-08] MEDS: MORPHINE SULFATE 2 MG/ML SYRINGE IV (13:44)
[2024-09-08 13:49] LABS: Hematocrit 31.9 % (42.0-54.0); Hemoglobin 10.1 g/dL (14.0-18.0); Mean Corpuscular HGB Conc 31.7 g/dL (29.9-35.2); Mean Corpuscular Hemoglobin 28.2 pg (25.9-34.0); Mean Corpuscular Volume 89.1 fL (80.0-94.0); Mean Platelet Volume 10.9 fL (9.5-13.5); Platelet Count 191 10^3/uL (150-450); Red Blood Count 3.58 10^6/uL (4.70-6.10); Red Cell Distribution Width 17.6 % (11.0-15.0); White Blood Count 20.2 10^3/uL (4.0-11.0)
--- NOTE | 2024-09-08 13:54 | PC.NURSE ---
small dressing found behind left ear dated 09/07/24 documented last dressing change by the [facility]
[2024-09-08 14:03] LABS: Alanine Aminotransferase 22 U/L (16-63); Albumin Globulin Ratio 0.3; Albumin Level 1.4 g/dL (3.4-5.0); Alkaline Phosphatase 148 U/L (46-116); Anion Gap 11.9; Aspartate Amino Transferase 55 U/L (15-37); BUN Creatinine Ratio 26.1; Bilirubin Total 0.8 mg/dL (0.2-1.0); Carbon Dioxide 27.6 mmol/L (21.0-32.0); Chloride 100 mmol/L (98-107); Estimated GFR (African America 34 (>=60 mL/min/1.73m^2); Estimated GFR (Non-African Ame 28 (>=60 mL/min/1.73m^2); Globulin 4.7 g/dL; Glucose 283 mg/dL (74-106); Potassium 3.5 mmol/L (3.5-5.1); Sodium 136 mmol/L (136-145); Total Protein 6.1 g/dL (6.4-8.2)
[2024-09-08 14:04] LABS: Segmented Neut Absolute Manual 18.58 10^3/uL (1.4-6.5)
[2024-09-08 14:11] LABS: Glucometer 330 mg/dL (74-106)
--- NOTE | 2024-09-08 14:23 | ED.GENADUL1 ---
HPI HPI - General Adult General Chief complaint: Skin/Abscess/Foreign Body Stated complaint: OTHER Time Seen by Provider: 09/08/24 13:00 Source: other Source information: [facility] staff and EMS Mode of arrival: ambulance History of Present Illness HPI narrative: The patient is 89 years old male with the multiple comorbidities including hypertension diabetes and coronary artery disease coming to the ER after his staff in the [facility] noted that he have a black foul-smelling swelling in his groin area he was already getting treated for possible infection over the last 24 hours. The patient in the ER is resting he complained of nausea sometime he did have a good appetite for the last 24 hours and he does take morphine p.o. for pain The patient otherwise is comfort care measures Related Data Home Medications ?Medication ?Instructions ?Recorded ?Confirmed insulin aspart U-100 100 unit/mL 2 - 10 unit subcut .TIDAC 08/02/24 09/08/24 (3 mL) subcutaneous pen (Novolog FlexPen U-100 Insulin aspart) insulin glargine 100 unit/mL (3 15 unit subcut BEDTIME 08/02/24 09/08/24 mL) subcutaneous pen (Lantus Solostar U-100 Insulin) lisinopril 2.5 mg tablet 2.5 mg PO DAILY 08/02/24 09/08/24 ondansetron 4 mg disintegrating 4 mg PO Q6H PRN nausea and vomiting 08/02/24 09/08/24 tablet sertraline 50 mg tablet 50 mg PO .QHS 08/02/24 09/08/24 tamsulosin 0.4 mg capsule 0.4 mg PO .QHS 08/02/24 09/08/24 clopidogrel 75 mg tablet 75 mg PO DAILY 09/01/24 09/08/24 furosemide 20 mg tablet (Lasix) 20 mg PO DAILY 09/01/24 09/08/24 midodrine 2.5 mg tablet 2.5 mg PO BID PRN FOR SBP < 100 09/01/24 09/08/24 insulin aspart U-100 100 unit/mL 2 - 8 unit subcut .QHS 09/08/24 09/08/24 (3 mL) subcutaneous pen (Novolog FlexPen U-100 Insulin aspart) lorazepam 2 mg/mL oral concentrate 0.5 mg PO Q8H PRN anxiety 09/08/24 09/08/24 (Lorazepam Intensol) morphine concentrate 100 mg/5 mL 5 mg PO Q6H PRN pain 09/08/24 09/08/24 (20 mg/mL) oral solution promethazine 25 mg rectal 25 mg MI Q6H PRN nausea and 09/08/24 09/08/24 suppository (Promethegan) vomiting promethazine 25 mg/mL injection 25 mg IM Q6H PRN nausea and 09/08/24 09/08/24 solution vomiting sulfamethoxazole 800 1 tab PO BID 09/08/24 09/08/24 mg-trimethoprim 160 mg tablet (Bactrim DS) Allergies Allergy/AdvReac Type Severity Reaction Status Date / Time No Known Drug Allergies Allergy Verified 08/02/24 20:25 Opioid HPI Opioid Management Most Recent Opioid Data: Last Pain Scale 0 09/01/24, 12:51 Review of Systems ROS Status of ROS 10 or more systems reviewed and unremarkable except as noted in history and below PFSH PFS Medical History (Updated 09/08/24 @ 14:30 by Felisha Ribeiro MD) Atherosclerotic coronary vascular disease ?I25.10 - Atherosclerotic heart disease of [place] coronary artery without angina pectoris (ICD-10) Hx of traumatic brain injury ?Z87.820 - Personal history of traumatic brain injury (ICD-10) Hx of subdural hemorrhage ?Z86.79 - Personal history of other diseases of the circulatory system (ICD-10) Hx of malignant neoplasm of prostate ?Z85.46 - Personal history of malignant neoplasm of prostate (ICD-10) Hx of gastric ulcer ?Z87.11 - Personal history of peptic ulcer disease (ICD-10) Surgical History (Updated 09/01/24 @ 13:21 by Luis Balbuena) 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 General: Sick looking and in no apparent distress but sleeping Skin: Warm, dry, no pallor noted. No rash. Head: Normocephalic, atraumatic. Neck: Supple, non-tender. Cardiovascular: Regular Rate and Rhythm without murmur, gallop or rub. Respiratory: No accessory muscle use or respiratory distress. Lungs are clear to auscultation, no wheezing, rales or rhonchi Chest Wall: no tenderness Back: No midline thoracic or lumbar vertebral tenderness. No CVA tenderness Musculoskeletal: normal ROM, no calf or popliteal tenderness, no lower extremity edema/swelling GI: Abdomen is soft, non-distended. Normal bowel sounds. No masses appreciated. 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 Constitutional Vital Signs, click to edit/add: Last Vital Signs Temp 96.3 F L 09/08/24 13:51 Pulse 65 09/08/24 12:55 Resp 16 09/08/24 12:55 BP 94/45 L 09/08/24 18:30 Pulse Ox 95 09/08/24 18:27 O2 Del Method Room Air 09/08/24 13:52 Course Vital Signs Vital signs: Vital Signs Pulse Rate 65 09/08/24 12:55 Respiratory Rate 16 09/08/24 12:55 Blood Pressure 93/48 L 09/08/24 12:55 Pulse Oximetry 99 09/08/24 12:55 Oxygen Delivery Method Room Air 09/08/24 12:55 Temperature 96.3 F L 09/08/24 13:51 Pulse Rate 65 09/08/24 12:55 Respiratory Rate 16 09/08/24 12:55 Blood Pressure 94/45 L 09/08/24 18:30 Pulse Oximetry 95 09/08/24 18:27 Oxygen Delivery Method Room Air 09/08/24 13:52 Medical Decision Making MDM Narrative Medical decision making narrative: The patient presenting to us with a Caetrina gangrene his presentation is highly likely to be futile Patient had an IV established and started on pain medication because of his comfort care measures and I did call the daughter to the bedside and explained to her the evaluation Without the patient going to surgery the patient Caterina gangrene is futile and antibiotic would not be effective The patient blood pressure is already in the 80s systolic and controlling his pain is the priority at the moment The patient case was discussed with the sr. social media & mobile manager at the bedside as well and the patient is agreeable for hospice care Hospice care present the bedside as well as the family and the patient agreeable to go back to the [facility] for hospice care Right now the patient blood pressure is 94/45 and as long as the patient's pain controlled and he wants to go back to the [facility] for hospice care that is okay The patient will be discharged Lab Data Labs: Lab Results 09/08/24 09/08/24 Range/Units 13:33 14:09 WBC 20.2 H (4.0-11.0) 10^3/uL RBC 3.58 L (4.70-6.10) 10^6/uL Hgb 10.1 L (14.0-18.0) g/dL Hct 31.9 L (42.0-54.0) % MCV 89.1 (80.0-94.0) fL MCH 28.2 (25.9-34.0) pg MCHC 31.7 (29.9-35.2) g/dL RDW 17.6 H (11.0-15.0) % Plt Count 191 (150-450) 10^3/uL MPV 10.9 (9.5-13.5) fL Seg Neuts % (Manual) 92.0 H (43.0-75.0) Lymphocytes % (Manual) 4.0 L (20.5-60.0) % Monocytes % (Manual) 4.0 (1.7-12.0) % Eosinophils % (Manual) 0.0 L (0.9-7.0) % Basophils % (Manual) 0.0 L (0.2-2.0) % Neutrophils # (Manual) 18.58 H (1.4-6.5) 10^3/uL Lymphocytes # (Manual) 0.80 L (1.20-3.80) 10^3/uL Monocytes # (Manual) 0.80 (0.30-0.80) 10^3/uL Eosinophils # (Manual) 0.00 (0.00-0.70) 10^3/uL Basophils # (Manual) 0.00 (0.00-0.10) 10^3/uL Sodium 136 (136-145) mmol/L Potassium 3.5 (3.5-5.1) mmol/L Chloride 100 (98-107) mmol/L Carbon Dioxide 27.6 (21.0-32.0) mmol/L Anion Gap 11.9 BUN 58.0 H (7.0-18.0) mg/dL Creatinine 2.22 H (0.70-1.30) mg/dL Est GFR ( Amer) 34 L (>=60 mL/min/1.73m^2) Est GFR (Non-Af Amer) 28 L (>=60 mL/min/1.73m^2) BUN/Creatinine Ratio 26.1 Glucose 283 H (74-106) mg/dL Calcium 9.0 (8.5-10.1) mg/dL Total Bilirubin 0.8 (0.2-1.0) mg/dL AST 55 H (15-37) U/L ALT 22 (16-63) U/L Alkaline Phosphatase 148 H (46-116) U/L Total Protein 6.1 L (6.4-8.2) g/dL Albumin 1.4 L (3.4-5.0) g/dL Globulin 4.7 g/dL Albumin/Globulin Ratio 0.3 POC Glucose 330 H (74-106) mg/dL Discharge Plan Discharge Chief Complaint: Skin/Abscess/Foreign Body Clinical Impression: Caterina gangrene, Encounter for hospice care Prescriptions / Home Meds: No Action tamsulosin 0.4 mg capsule 0.4 mg PO .QHS sertraline 50 mg tablet 50 mg PO .QHS lisinopril 2.5 mg tablet 2.5 mg PO DAILY Rx Instructions: HOLD FOR SBP < 110 insulin aspart U-100 [Novolog FlexPen U-100 Insulin] 100 unit/mL (3 mL) insulin pen 2 - 10 unit SUBCUT .TIDAC Rx Instructions: 151-200 2 UNITS 201-250 4 UNITS 251-300 6 UNITS 301-350 8 UNITS 351-400 10 UNITS > 400 10 UNITS AND CALL PHYSICIAN insulin glargine [Lantus Solostar U-100 Insulin] 100 unit/mL (3 mL) insulin pen 15 unit SUBCUT BEDTIME ondansetron 4 mg tablet,disintegrating 4 mg PO Q6H PRN (Reason: nausea and vomiting) sulfamethoxazole-trimethoprim [Bactrim DS] 800-160 mg tablet 1 tab PO BID Rx Instructions: 09/07/24-09/18/24 lorazepam [Lorazepam Intensol] 2 mg/mL concentrate 0.5 mg PO Q8H PRN (Reason: anxiety) morphine concentrate 100 mg/5 mL (20 mg/mL) solution 5 mg PO Q6H PRN (Reason: pain) promethazine 25 mg/mL solution 25 mg IM Q6H PRN (Reason: nausea and vomiting) promethazine [Promethegan] 25 mg suppository 25 mg MI Q6H PRN (Reason: nausea and vomiting) insulin aspart U-100 [Novolog FlexPen U-100 Insulin] 100 unit/mL (3 mL) insulin pen 2 - 8 unit subcut .QHS Rx Instructions: 151-200 0 UNITS 201-250 2 UNITS 251-300 4 UNITS 301-350 6 UNITS 351-400 8 UNITS > 400 CALL PHYSICIAN clopidogrel 75 mg tablet 75 mg PO DAILY furosemide [Lasix] 20 mg tablet 20 mg PO DAILY midodrine 2.5 mg tablet 2.5 mg PO BID PRN (Reason: FOR SBP < 100) Rx Instructions: do not give last dose of day after 6PM or within 4 hrs of bedtime Print Language: Tu[place] Referrals: ESTEPHANIE RHOADES [Primary Care Provider, Family Practice] - 1 week
--- NOTE | 2024-09-08 14:45 | CM.NOTE ---
Recreation Attendant called to ER for pt, pt from [facility]. Pt has terminal diagnosis and would like to discuss Hospice. Talked with pt and daughter regarding diagnosis and plan of care. Pt at this time verbalizes his wishes are just to be kept comfortable and daughter in agreement of pt's wishes. Discussed with family options for Hospice care, pt and daughter are in agreement for [facility]. Called [facility] and message left, faxed new referral to Hospice (case management referral, physician note, and face sheet).
--- NOTE | 2024-09-08 15:06 | CM.NOTE ---
Hospice called back and referral has been received awaiting for RN to reach out with time of arrival.
--- NOTE | 2024-09-08 16:08 | CM.NOTE ---
Spoke with pt and daughter regarding Hospice consult, intake has reached out to daughter awaiting call back from RN. Spoke with ER physician and RN caring for pt and gave update on Hospice consult. Case Management left a cell phone contact number for ER to call if any further questions or needs. Reached out to Lucinda ramos [place] for update on pt and pt's possible return with Hospice care.
== END 2024-09-08 21:09 | disposition hospice, inpatient (51) ==
PROVIDERS: Emergency Provider Emergency Medicine; PCP Family Medicine
DX: N49.3 Fournier gangrene (principal); I10 Essential (primary) hypertension; E11.9 Type 2 diabetes mellitus without complications; I25.10 Atherosclerotic heart disease of native coronary artery without angina pectoris; Z79.4 Long term (current) use of insulin; Z95.2 Presence of prosthetic heart valve
CPT/HCPCS: 36415; 80053; 82948; 85007; 85027; 96374; 99284; J2270